=== PATIENT | female | born 1980 | race Caucasian/White ===

== ENCOUNTER 2019-11-20 13:37 | Outpatient (CLI) | payer BC, SELFPAY ==
--- NOTE | ~2019-11-20 | CT_ITS ---
EXAMINATION: CT sinus wo con DATE: 11/20/2019 13:59 INDICATION: Congestion. Chronic sinusitis. History of sinus surgery. TECHNIQUE: Computed tomography (CT) of the paranasal sinuses was performed without contrast. Iterativ e reconstruction technique was employed. Exam dose: 264.59 mGy-cm total exam DLP. COMPARISON: 11/01/2005 CT sinuses FINDINGS: There is mild leftward deviation of the nasal septum. There is mali bullosa and interlamellar cell of the left middle nasal turbinate. There is intralame llar cell of the right middle nasal turbinate. The left middle and both inferior nasal turbinates are moderately swollen. There is resection of the uncinate processes with bilateral nasal antral windows. There is minimal focal soft tissue opacification of left ethmoid air cells. The paranasal sinuses are otherwise normally developed and aerated. The mastoid air cells are normally developed and aerated bilaterally. Middle and inner ear apparatus appear normal bilaterally. IMPRESSION: Bilateral uncinate process resection and nasal antral windows Minimal focal soft tissue opacification of left ethmoid air cells Mild leftward deviation of nasal septum Mali bullosa and interlamellar cell of left middle nasal turbinate Interlamellar cell of right middle nasal turbinate Reviewed, dictated and finalized at [facility]. Reviewed, dictated and finalized at location [facility].
== END 2019-11-20 13:38 | disposition home or self-care (01) ==
LOC: ANHIMG 13:39
PROVIDERS: PCP Family Medicine; Visit Provider Otolaryngology
DX: J32.9 Chronic sinusitis, unspecified (principal); J34.2 Deviated nasal septum
CPT/HCPCS: 70486

== ENCOUNTER 2020-01-22 00:33 | Outpatient (CLI) | payer BC, SELFPAY ==
[2020-01-22 17:43] LABS: SARS-CoV-2 RNA PCR Negative
== END 2020-01-22 00:34 | disposition home or self-care (01) ==
LOC: ANHCOVIDDT 00:33
PROVIDERS: PCP Family Medicine; Visit Provider Internal Medicine Gastroenterology
DX: Z01.818 Encounter for other preprocedural examination (principal); Z11.59 Encounter for screening for other viral diseases
CPT/HCPCS: 87635; C9803; U0003

== ENCOUNTER 2020-01-24 01:10 | Day surgery (SDC) | payer BC, SELFPAY ==
[2020-01-20 12:31] VITALS: BMI 52.4
--- NOTE | 2020-01-24 08:15 | WPDANESEPPF ---
Anes - Initial Pre Proc Eval Procedure: Operation Date: 01/24/20 09:15 Proposed Procedures p Esophagogastroduodenoscopy - Osvaldo Olivas MD Date/Time: 01/24/20 08:15 Surgeon: Osvaldo Olivas MD Pre Op Diagnosis: GERD Patient Data Age: 39 Gender: F Height: 1.65 m Weight: 143 kg Allergies Allergy/AdvReac Type Severity Reaction Status Date / Time codeine Allergy Unknown Headache Verified 01/20/20 12:26 Home Medications Medication Instructions Recorded Confirmed Type citalopram 40 mg tablet 40 mg PO DAILY 09/18/19 01/20/20 History loratadine 10 mg tablet 10 mg PO DAILY #30 tablet 09/18/19 01/20/20 Rx nystatin 100,000 unit/gram topical 1 applic TOPICAL BID #30 gm 10/29/19 01/20/20 Rx powder arginine HCl (L-arginine) 1,000 mg 1,000 mg PO DAILY 11/18/19 01/20/20 History tablet atorvastatin 10 mg tablet 10 mg PO DAILY 11/18/19 01/20/20 History fluticasone propionate 50 2 spray NASAL DAILY 11/18/19 01/20/20 History mcg/actuation nasal spray,suspension magnesium chloride 64 mg 64 mg PO BID 11/18/19 01/20/20 History tablet,extended release metoprolol succinate 25 mg 25 mg PO DAILY 11/18/19 01/20/20 History tablet,extended release 24 hr omeprazole 40 mg capsule,delayed 40 mg PO DAILY 11/18/19 01/20/20 History release vitamin B complex 1 cap PO DAILY 11/18/19 01/20/20 History clindamycin phosphate 1 % topical 1 applic TOPICAL DAILY #60 ml 12/25/19 01/20/20 Rx solution aspirin 81 mg tablet,delayed 81 mg PO DAILY 01/09/20 01/20/20 History release albuterol sulfate 2 puff INHALATION Q4HWA PRN 01/20/20 01/20/20 History nystatin-triamcinolone 1 applic TOPICAL PRN PRN 01/20/20 01/20/20 History Patient hx anesthesia problems: none Family hx anesthesia problems: none PMFSH Past Medical History Medical History Chronic GERD Enlarged thoracic aorta Hepatic steatosis Morbid obesity with BMI of 50.0-59.9, adult Nausea MILY on CPAP Other intervertebral disc degeneration, lumbar region PCOS (polycystic ovarian syndrome) Surgical History Surgical History H/O lithotripsy History of partial hysterectomy Hx of cholecystectomy Hx of sinus surgery Family History Family History Father Hypertension Family history of chronic obstructive pulmonary disease Family history of diabetes mellitus in first degree relative Acute myocardial infarction Cerebrovascular accident Family history of coronary artery disease Diabetes mellitus Mother Hypertension Family history of diabetes mellitus in first degree relative Diabetes mellitus Grandparent Cerebrovascular accident Other Family history of malignant neoplasm Family history of malignant neoplasm of urinary bladder Social History Social History Smoking status: Former smoker Smoking end date: 08/21/11 Alcohol intake: never Anes - Eval Final PreProcedure Day of Procedure 01/24/20 08:15 Patient weight: super morbidly obese Heart: regular rate and rhythm Lungs: clear to auscultation and normal air movement Airway: Mallampati scale class II Neurological: alert and oriented Last oral intake: >/= 8 hours ASA classification: III Emergent: no Anesthetic plan: proceed Anesthesia type and monitoring: general GIVS Informed Consent: The patient's anesthetic plan and its attendant risks and benefits were discussed with the patient/family/POA. Questions were solicited and answers provided to the satisfaction of the patient/family/POA.
[2020-01-24 09:15] VITALS: BP 136/72; PULSE 65; RESP 16; TEMP 36.2; O2SAT 96; BMI 51.9
[2020-01-24] MEDS: LACTATED RINGERS 1,000 ML 150 ML IV CONT (09:27)
--- NOTE | 2020-01-24 09:55 | WPDHPUPDATE1 ---
History and Physical Update Update Date/Time: 01/24/20 09:55 History and Physical has been reviewed, including an updated exam of the patient. There are NO changes in the patient's condition. Risks, benefits, and alternatives have been discussed and questions answered. Patient agrees to proceed with procedure.
[2020-01-24 10:17] VITALS: BP 106/62; PULSE 71; RESP 21; O2SAT 98
[2020-01-24 10:27] VITALS: BP 108/63; PULSE 65; RESP 22; O2SAT 98
[2020-01-24 10:37] VITALS: BP 112/69; PULSE 63; RESP 21; O2SAT 98
== END 2020-01-24 10:51 | disposition home or self-care (01) ==
PROVIDERS: PCP Family Medicine; Visit Provider Internal Medicine Gastroenterology
PROC: 0DJ08ZZ Inspection of Upper Intestinal Tract, Via Natural or Artificial Opening Endoscopic (ICD-10-PCS; CPT 43235; principal; 2020-01-24 09:15)
DX: K21.9 Gastro-esophageal reflux disease without esophagitis (principal); K29.50 Unspecified chronic gastritis without bleeding; K76.0 Fatty (change of) liver, not elsewhere classified; G47.33 Obstructive sleep apnea (adult) (pediatric); E28.2 Polycystic ovarian syndrome; E66.01 Morbid (severe) obesity due to excess calories; Z68.43 Body mass index [BMI] 50.0-59.9, adult; Z79.82 Long term (current) use of aspirin; Z87.891 Personal history of nicotine dependence
CPT/HCPCS: 43239; 88305; J2001; J2704; J7120

== ENCOUNTER 2020-01-27 07:45 | Outpatient (CLI) | payer BC, SELFPAY ==
--- NOTE | ~2020-01-27 | NM_ITS ---
EXAM: NM gastric emptying study DATE: 01/28/2020 07:59 CDT INDICATION: Nausea TECHNIQUE: A gastric emptying study was performed using the methodology of Charly URIBE, et al. J Nucl Med 2007; 48:568-572. The patient was given a meal consisting of 2 scrambled eggs labeled with 1 mCi Tc-99m sulfur colloid, 2 slices of toast, two packages of jam, and approximately 120 mL of water. Si multaneous anterior and posterior 1-min images of the abdomen were obtained with the patient supine a t multiple time points over a total period of 4 hours. The geometric mean of anterior and posterior v iews was determined, and the percentage retention was calculated for each time point. COMPARISON: None. FINDINGS: Gastric retention of the radiotracer-labeled meal was 84%, 71%, and 28% at the 1-hour, 2-h our, and 4-hour time points, respectively. With this technique, apparent rapid gastric emptying is melendez ggested by <30% gastric retention at 1 hour. Delayed gastric emptying is defined by gastric retention of >90% at 1 hour, >60% retention at 2 hours, or >10% retention at 4 hours. IMPRESSION: 1. Delayed gastric emptying. 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
== END 2020-01-27 07:46 | disposition home or self-care (01) ==
LOC: ANHIMG 07:46
PROVIDERS: PCP Family Medicine; Visit Provider Internal Medicine Gastroenterology
DX: K21.9 Gastro-esophageal reflux disease without esophagitis (principal); R11.0 Nausea; K30 Functional dyspepsia
CPT/HCPCS: 78264; A9541

== ENCOUNTER 2020-03-11 09:43 | Outpatient (CLI) | payer BC, SELFPAY ==
--- NOTE | 2020-03-12 11:00 | NEURO_ITS ---
Patient Number: [id number] Impression: # Complains of pain and numbness of right upper extremity. # Evolving right Carpal Tunnel Syndrome. # Right ulnar neuropathy across the elbow. # Normal needle/EMG exam. # Clinical correlation recommended. Nerve Conduction Studies Anti Sensory Summary Table Stim Site NR Peak (ms) P-T Amp (?V) Site1 Site2 Delta-P (ms) Dist (cm) Roman (m/s) Left Median Anti Sensory (2-3nd Digit) Wrist 2.6 73.3 Wrist 2-3nd Digit 2.6 14.0 54 Wrist 2.7 83.3 Wrist 2-3nd Digit 2.6 14.0 54 Right Median Anti Sensory (2-3nd Digit) Wrist 3.4 85.7 Wrist 2-3nd Digit 3.4 14.0 41 Wrist 2.8 86.8 Wrist 2-3nd Digit 3.4 14.0 41 Left Radial Anti Sensory (Base 1st Digit) Wrist 1.9 7.7 Wrist Base 1st Digit 1.9 0.0 Right Radial Anti Sensory (Base 1st Digit) Wrist 2.1 14.2 Wrist Base 1st Digit 2.1 0.0 Left Ulnar Anti Sensory (5th Digit) Wrist 2.1 70.6 Wrist 5th Digit 2.1 14.0 67 Right Ulnar Anti Sensory (5th Digit) Wrist 2.0 87.4 Wrist 5th Digit 2.0 14.0 70 Motor Summary Table Stim Site NR Onset (ms) O-P Amp (mV) Site1 Site2 Delta-0 (ms) Dist (cm) Roman (m/s) Left Median Motor (Abd Poll Brev) Wrist 3.0 3.7 Elbow Wrist 4.0 26.0 65 Elbow 7.0 2.8 Right Median Motor (Abd Poll Brev) Wrist 3.8 1.5 Elbow Wrist 4.0 26.0 65 Elbow 7.8 0.6 Left Ulnar Motor (Abd Dig Minimi) Wrist 2.4 6.3 A Elbow Wrist 4.2 27.0 64 A Elbow 6.6 6.3 Right Ulnar Motor (Abd Dig Minimi) Wrist 2.7 5.3 A Elbow Wrist 5.1 25.0 49 A Elbow 7.8 2.9 B Elbow Wrist 4.0 20.0 50 B Elbow 6.7 2.8 F Wave Studies NR F-Lat (ms) L-R F-Lat (ms) Left Median (Mrkrs) (Abd Poll Brev) 26.13 0.82 Right Median (Mrkrs) (Abd Poll Brev) 26.95 0.82 Left Ulnar (Mrkrs) (Abd Dig Min) 27.42 1.07 Right Ulnar (Mrkrs) (Abd Dig Min) 26.35 1.07 EMG Side Muscle Nerve Root Ins Act Fibs Amp Dur Recrt Comment Right 1stDorInt Ulnar C8-T1 Nml Nml Nml Nml Nml Right Ext Indicis Radial (Post Int) C7-8 Nml Nml Nml Nml Nml Right Ext Digitorum Radial (Post Int) C7-8 Nml Nml Nml Nml Nml Right BrachioRad Radial C5-6 Nml Nml Nml Nml Nml Right PronatorTeres Median C6-7 Nml Nml Nml Nml Nml Right Abd Poll Brev Median C8-T1 Nml Nml Nml Nml Nml Left 1stDorInt Ulnar C8-T1 Nml Nml Nml Nml Nml Left Ext Indicis Radial (Post Int) C7-8 Nml Nml Nml Nml Nml Left Ext Digitorum Radial (Post Int) C7-8 Nml Nml Nml Nml Nml Left BrachioRad Radial C5-6 Nml Nml Nml Nml Nml Left PronatorTeres Median C6-7 Nml Nml Nml Nml Nml Left Abd Poll Brev Median C8-T1 Nml Nml Nml Nml Nml MTDD
== END 2020-03-11 09:44 | disposition home or self-care (01) ==
PROVIDERS: PCP Family Medicine; Visit Provider Nurse Practitioner Family
DX: M25.531 Pain in right wrist (principal); G56.01 Carpal tunnel syndrome, right upper limb; G56.21 Lesion of ulnar nerve, right upper limb
CPT/HCPCS: 95886; 95911

== ENCOUNTER 2020-04-01 15:44 | Outpatient (CLI) | payer BC, SELFPAY ==
[2020-04-01 16:21] LABS: Hematocrit 34.6 % (37.0-47.0); Hemoglobin 11.3 g/dL (12.0-15.0); Mean Corpuscular HGB Conc 32.7 g/dl (32-36); Mean Corpuscular Hemoglobin 28.3 pg (26-34); Mean Corpuscular Volume 86.5 fl (80-100); Mean Platelet Volume 10.3 fl (7.4-10.4); Platelet Count Result 326 k/mm3 (150-375); Red Cell Distribution Width 13.7 % (11.5-14.5); White Blood Count 9.3 K/mm3 (4.5-10.0)
[2020-04-01 16:34] LABS: Anion Gap 7 mmol/L (8-16); Blood Urea Nitrogen 11 mg/dL (7-17); Calcium 9.3 mg/dL (8.4-10.2); Carbon Dioxide 27 mmol/L (22-30); Chloride 101 mmol/L (98-107); Estimated Glomerular Filt Rate > 60; Glucose 87 mg/dL (65-105); Potassium 3.8 mmol/L (3.4-5.0); Sodium 135 mmol/L (137-145)
== END 2020-04-01 15:45 | disposition home or self-care (01) ==
PROVIDERS: PCP Family Medicine; Visit Provider Nurse Practitioner Family
DX: R10.9 Unspecified abdominal pain (principal)
CPT/HCPCS: 36415; 80048; 85027

== ENCOUNTER 2020-04-07 16:07 | Outpatient (CLI) | payer BC, SELFPAY ==
--- NOTE | ~2020-04-07 | CT_ITS ---
EXAMINATION: CT abdomen pelvis wo con DATE: 04/07/2020 16:27 INDICATION: Left flank pain TECHNIQUE: Computed tomography (CT) of the abdomen and pelvis was performed without intravenous contr ast. The dose-length product (DLP) was 1561.80 mGy-cm. Automated exposure control and iterative recon struction technique were employed. COMPARISON: 12/14/2018 FINDINGS: The lung bases are clear. The heart size is normal. The gallbladder is surgically absent. T he liver, spleen, pancreas, and adrenal glands are normal. There is a 3 mm stone at the left ureterop elvic junction which causes mild left hydronephrosis. No stones are present in the kidneys, the right ureter, or the bladder. No pathologically enlarged abdominal or pelvic lymph nodes are identified. T here is no free intraperitoneal gas or evidence of bowel obstruction. The appendix is normal. There i s mild lumbar spondylosis. There is a small fat-containing umbilical hernia. A chronic 3 cm area of f luid attenuation in the region of the left adnexa likely reflects a peritoneal inclusion cyst. IMPRESSION: 1. 3 mm stone at the left ureteropelvic junction causing mild left hydronephrosis. 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 IMPRESSION: 1. 3 mm stone at the left ureteropelvic junction causing mild left hydronephros is.
--- NOTE | ~2020-04-07 | XR_ITS ---
EXAMINATION: XR abdomen/kub 1V INDICATION: Left flank pain TECHNIQUE: Supine views of the abdomen were obtained on 2 radiographs. COMPARISON: 08/20/[address] from today FINDINGS: The known left ureteropelvic junction stone is not demonstrated. The bowel gas pattern is n ormal. Cholecystectomy clips are present in the right upper quadrant. A surgical clips are present in the right pelvis. IMPRESSION: 1. Known left ureteropelvic junction stone not demonstrated. 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
== END 2020-04-07 16:08 | disposition home or self-care (01) ==
PROVIDERS: PCP Family Medicine; Visit Provider Nurse Practitioner Adult Health
DX: R10.9 Unspecified abdominal pain (principal); N20.1 Calculus of ureter
CPT/HCPCS: 74018; 74176

== ENCOUNTER 2020-04-09 01:37 | Day surgery (SDC) | payer BC, SELFPAY ==
[2020-04-08 17:01] VITALS: BMI 52.2
[2020-04-09] VITALS (15 sets, daily range): BP systolic 112–167; BP diastolic 33–90; PULSE 62–92; RESP 10–21; TEMP 36.1–36.8; O2SAT 92–100; BMI 52.8
--- NOTE | ~2020-04-09 | XR_ITS ---
EXAMINATION: XR fluoroscopy no charge DATE: 04/09/2020 12:55 INDICATION: Left ureteral stone. TECHNIQUE: 2 intraoperative fluoroscopic views of the abdomen and pelvis were obtained. I was not pre sent. Fluoroscopy exposure time was 8 seconds. COMPARISON: CT abdomen and pelvis 04/07/2020 FINDINGS: Images demonstrate a guidewire in the left ureter. Surgical clips in the right upper quadra nt are likely from cholecystectomy. A tubal ligation clip overlies right pelvis. IMPRESSION: 1. Guidewire in the left ureter. 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
--- NOTE | 2020-04-09 06:59 | WPDHPUPDATE1 ---
History and Physical Update Update Date/Time: 04/09/20 06:59 History and Physical has been reviewed, including an updated exam of the patient. There are NO changes in the patient's condition. Risks, benefits, and alternatives have been discussed and questions answered. Patient agrees to proceed with procedure.
[2020-04-09] MEDS: LACTATED RINGERS 1,000 ML 30 ML IV CONT ×2 (11:45→13:41)
--- NOTE | 2020-04-09 12:06 | P.PNAN_ITS ---
Anes - Initial Pre Proc Eval Procedure: Operation Date: 04/09/20 14:00 Proposed Procedures p Cystoscopy, Left Ureteroscopy, Left Retrograde Pyelogram, Left Stone Extraction, Possible Left Stent Placement - Michael Fox MD s Possible Holmium Laser Procedure - Michael Fox MD Date/Time: 04/09/20 12:06 Surgeon: Michael Fox MD Pre Op Diagnosis: Left UVJ Stone Patient Data Age: 39 Gender: F Height: 1.65 m Weight: 142 kg Last Vital Signs Temp 36.8 C 04/09/20 11:41 Pulse 69 04/09/20 11:41 Resp 20 04/09/20 11:41 BP 135/76 04/09/20 11:41 Pulse Ox 97 04/09/20 11:41 Allergies Allergy/AdvReac Type Severity Reaction Status Date / Time codeine Allergy Unknown Headache Verified 04/09/20 11:39 Home Medications Medication Instructions Recorded Confirmed Type citalopram 40 mg tablet 40 mg PO DAILY 09/18/19 04/09/20 History arginine HCl (L-arginine) 1,000 mg 1,000 mg PO DAILY 11/18/19 04/09/20 History tablet atorvastatin 10 mg tablet 10 mg PO DAILY 11/18/19 04/09/20 History metoprolol succinate 25 mg 25 mg PO DAILY 11/18/19 04/09/20 History tablet,extended release 24 hr omeprazole 40 mg capsule,delayed 40 mg PO DAILY 11/18/19 04/09/20 History release vitamin B complex 1 cap PO DAILY 11/18/19 04/09/20 History aspirin 81 mg tablet,delayed 81 mg PO DAILY 01/09/20 04/09/20 History release albuterol sulfate 2 puff INHALATION Q4HWA PRN 01/20/20 04/09/20 History loratadine 10 mg tablet 10 mg PO DAILY #30 tablet 02/11/20 04/09/20 Rx clindamycin phosphate 1 % topical 1 applic TOPICAL DAILY #60 ml 03/30/20 04/09/20 Rx solution fluticasone propionate 50 2 spray NASAL DAILY #47.4 ml 04/02/20 04/09/20 Rx mcg/actuation nasal spray,suspension triamcinolone acetonide 1 applic TOPICAL PRN PRN 04/08/20 04/09/20 History Patient hx anesthesia problems: none Family hx anesthesia problems: none [facility] Social History Social History Years smoked: 13 Smoking status: Former smoker Smoking end date: 08/21/11 Alcohol intake: never Living arrangements: with family Jaden Edward Final PreProcedure Day of Procedure 04/09/20 12:06 Patient weight: morbidly obese Heart: regular rate and rhythm Lungs: clear to auscultation and normal air movement Airway: Mallampati scale class II Neurological: alert and oriented Last oral intake: >/= 8 hours ASA classification: III Emergent: no Anesthetic plan: proceed Anesthesia type and monitoring: general LMA and ETT Informed Consent: The patient's anesthetic plan and its attendant risks and benefits were discussed with the patient/family/POA. Questions were solicited and answers provided to the satisfaction of the patient/family/POA.
[2020-04-09] MEDS: ceFAZolin SODIUM 1 GM VIAL IV PUSH (12:18)
[2020-04-09] MEDS: ceFAZolin 2 GM/D5W 50 ML 2 GM/50 ML BAG IVPB (12:18)
[2020-04-09] MEDS: LIDOCAINE HCL 2% GEL UROJET 10 ML PKG MUCOUS MEM (12:31)
--- NOTE | 2020-04-09 12:54 | PM.PROC ---
Procedure Note - Detailed Date of procedure: 04/09/20 Pre-op diagnosis: Left UVJ Stone Post-op diagnosis: same Procedure performed: Cystoscopy, left ureteroscopy with stone extraction Description of procedure: The patient was brought to the operative suite where she is prepped and draped in a routine sterile fashion while in the dorsal lithotomy position after the uneventful induction of a general LMA anesthetic. A 19F rigid cystoscope was placed in the bladder. The patient had no evidence of urethral stricture or bladder neck contracture. The bladder mucosa was endoscopically normal without hyperemia or neoplasm. There was a single, orthotopic ureteral orifice bilaterally. A 0.035 glidewire was advanced into the left renal pelvis under fluoroscopy. The distal ureter was dilated with an 8F/10F ureteral dilator. Ureteroscopy was undertaken with a short, tapered, semi-rigid ureteroscope and then a 7.5F flexible ureteroscope. The proximal ureteral stone was extracted with ease using a 1.9F 0-tip disposable stone basket. Due to the ease of this manipulation I opted not to place a ureteral stent. The patient's bladder was emptied and was taken to the recovery room having tolerated this procedure well. Anesthesia: GLMA Surgeon: Michael Fox MD Drains: No Packing: No Pathology: none sent Complications: No immediate complications Condition: stable Disposition: PACU
[2020-04-09] MEDS: SCOPOLAMINE 1.5 MG PATCH TRANSDERM (13:03)
[2020-04-09] MEDS: KETOROLAC 30 MG/ML VIAL (*BKC) IV PUSH (13:04)
[2020-04-09] MEDS: ONDANSETRON INJ 4 MG/2 ML VIAL IV PUSH ×2 (13:29→21:25)
--- NOTE | 2020-04-09 15:42 | SUR.PHASEII ---
1535: Called Dr. Fox and explained that patient was having severe Lt lower quad pain. He talked with patient and decided to admit. RN called [facility] for bed and updated on admission.
[2020-04-09] MEDS: diphenhydrAMINE HCl INJ 50 MG/ML VIAL 12.5 MG IV PUSH (16:17)
[2020-04-09] MEDS: MORPHINE SULFATE 2 MG/ML INJ IV PUSH ×2 (16:59→21:25)
[2020-04-09] MEDS: LACTATED RINGERS 1,000 ML 100 ML IV CONT (17:03)
[2020-04-10] MEDS: LACTATED RINGERS 1,000 ML 100 ML IV CONT ×2 (03:09→12:46)
[2020-04-10 05:18] VITALS: BP 106/57; PULSE 61; RESP 16; TEMP 36.4; O2SAT 97
--- NOTE | 2020-04-10 07:09 | PM.IMHP ---
H&P: HPI History of Present Illness Date/Time: 04/10/20 07:09 Chief complaint: Left UVJ Stone Narrative: Josefa Costello is a 39 year old female with a history of recurring urolithiasis. Yesterday she underwent a simple endoscopic extraction of a 3 mm left ureteral calculus a. I opted not place a stent and postoperatively she had considerable flank pain. She was admitted overnight for hydration and analgesics. Review of Systems Cardiovascular: Cardiovascular: Denies chest pain, Denies lightheadedness, Denies palpitations and Denies dyspnea Respiratory: Respiratory: Denies dyspnea Gastrointestinal: Gastrointestinal: Denies diarrhea, Denies nausea and Denies vomiting Genitourinary: Genitourinary: Denies hematuria and Denies dysuria Endocrine: Endocrine: Denies palpitations PMFSH Past Medical History Medical History Chronic GERD Enlarged thoracic aorta Hepatic steatosis Morbid obesity with BMI of 50.0-59.9, adult Nausea MILY on CPAP Other intervertebral disc degeneration, lumbar region PCOS (polycystic ovarian syndrome) Surgical History Surgical History H/O lithotripsy History of partial hysterectomy Hx of cholecystectomy Hx of sinus surgery Family History Family History Father Hypertension Family history of chronic obstructive pulmonary disease Family history of diabetes mellitus in first degree relative Acute myocardial infarction Cerebrovascular accident Family history of coronary artery disease Diabetes mellitus Mother Hypertension Family history of diabetes mellitus in first degree relative Diabetes mellitus Grandparent Cerebrovascular accident Other Family history of malignant neoplasm Family history of malignant neoplasm of urinary bladder Social History Social History Years smoked: 13 Smoking status: Former smoker Smoking end date: 08/21/11 Alcohol intake: never Substance use: never Living arrangements: with family Gender identity (if verbalized by the patient): Female Spiritual care concerns: No Meds Home Medications and Allergies Home Medications Medication Instructions Recorded Confirmed Type citalopram 40 mg tablet 40 mg PO DAILY 09/18/19 04/09/20 History arginine HCl (L-arginine) 1,000 mg 1,000 mg PO DAILY 11/18/19 04/09/20 History tablet atorvastatin 10 mg tablet 10 mg PO DAILY 11/18/19 04/09/20 History metoprolol succinate 25 mg 25 mg PO DAILY 11/18/19 04/09/20 History tablet,extended release 24 hr omeprazole 40 mg capsule,delayed 40 mg PO DAILY 11/18/19 04/09/20 History release vitamin B complex 1 cap PO DAILY 11/18/19 04/09/20 History aspirin 81 mg tablet,delayed 81 mg PO DAILY 01/09/20 04/09/20 History release albuterol sulfate 2 puff INHALATION Q4HWA PRN 01/20/20 04/09/20 History loratadine 10 mg tablet 10 mg PO DAILY #30 tablet 02/11/20 04/09/20 Rx clindamycin phosphate 1 % topical 1 applic TOPICAL DAILY #60 ml 03/30/20 04/09/20 Rx solution fluticasone propionate 50 2 spray NASAL DAILY #47.4 ml 04/02/20 04/09/20 Rx mcg/actuation nasal spray,suspension triamcinolone acetonide 1 applic TOPICAL PRN PRN 04/08/20 04/09/20 History cephalexin 500 mg PO Q8H #9 cap 04/09/20 Rx hydrocodone-acetaminophen 1 - 2 tablet PO Q6H PRN #20 tablet 04/09/20 Rx Allergies Allergy/AdvReac Type Severity Reaction Status Date / Time codeine Allergy Unknown Headache Verified 04/09/20 11:39 Vital Signs Vital Signs - 24 hr 04/09/20 11:41 04/09/20 12:54 04/09/20 13:10 Temperature 98.2 F 97.6 F Pulse Rate 69 90 69 Respiratory Rate 20 20 14 Blood Pressure 135/76 136/67 134/78 Pulse Oximetry 97 100 100 04/09/20 13:25 04/09/20 13:41 04/09/20 13:55 Temperature Pulse Rate 70 72 78 Respiratory Rate 20 16 1
--- NOTE | 2020-04-10 07:41 | WPDANESPN ---
Anes - Prog Note Post-Op Date/Time: 04/10/20 07:41 Cardiovascular status: normal Respiratory status: normal Airway patency: baseline Mental status: baseline Post-Op hydration status: normal Vital Signs: Last Vital Signs Temp 36.4 C 04/10/20 05:18 Pulse 61 04/10/20 05:18 Resp 16 04/10/20 05:18 BP 106/57 L 04/10/20 05:18 Pulse Ox 97 04/10/20 05:18 I/O: Intake & Output 04/09/20 04/09/20 04/10/20 15:59 23:59 07:59 Intake Total 2856 573 5527 Output Total 1100 Balance 1600 790 200 Post-procedural complaints: none Patient Feedback: Patient satisfied with anesthetic care.
[2020-04-10] MEDS: PHENAZOPYRIDINE HCL 100 MG TABLET 200 MG PO (10:01)
[2020-04-10] MEDS: ACETAMINOPHEN 325 MG TABLET 650 MG PO (14:20)
[2020-04-10] MEDS: DOCUSATE SODIUM 100 MG CAPSULE PO (14:20)
== END 2020-04-10 14:47 | disposition home or self-care (01) ==
LOC: ANHSURGERY 12:58 → ANH2MED 16:36
PROVIDERS: PCP Family Medicine; Visit Provider Urology
PROC: (CPT 52352; principal; 2020-04-09 14:00)
DX: N20.1 Calculus of ureter (principal)
CPT/HCPCS: 52352; A9270; C1769; J0131; J0330; J0690; J1100; J1170; J1200; J1885; J2250; J2270; J2405; J2704; J3010; J7120; Q9966

== ENCOUNTER → 2020-05-19 13:48 | Outpatient (CLI) | payer BC, SELFPAY ==
--- NOTE | ~2020-05-19 | US_ITS ---
EXAMINATION: US renal BI DATE: 05/19/2020 14:40 INDICATION: Left flank pain TECHNIQUE: Multiple ultrasound grayscale images of the kidneys were obtained. COMPARISON: None. FINDINGS: The right kidney measures 11.4 x 6.1 x 6.1 cm. The left kidney measures 11.5 x 5.1 x 5.2 cm. The kidn eys demonstrate normal echogenicity. There is no hydronephrosis in either kidney. No stones identifi ed. The bladder is normal. IMPRESSION: 1. Normal kidneys without hydronephrosis. 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
== END ==
PROVIDERS: PCP Family Medicine; Visit Provider Nurse Practitioner Adult Health
DX: R10.9 Unspecified abdominal pain (principal)
CPT/HCPCS: 76775

== ENCOUNTER 2020-06-22 01:08 | Outpatient (CLI) | payer BC, SELFPAY ==
[2020-06-22 19:58] LABS: SARS-CoV-2 RNA PCR Positive
== END 2020-06-22 01:09 | disposition home or self-care (01) ==
LOC: ANHCOVIDDT 01:08
PROVIDERS: PCP Family Medicine; Visit Provider Internal Medicine Gastroenterology
DX: Z01.812 Encounter for preprocedural laboratory examination (principal); U07.1 COVID-19
CPT/HCPCS: 87635; C9803; U0003

== ENCOUNTER 2020-08-04 02:16 | Outpatient (CLI) | payer BC, SELFPAY ==
[2020-08-04 22:42] LABS: SARS-CoV-2 RNA PCR Negative
== END 2020-08-04 02:17 | disposition home or self-care (01) ==
LOC: ANHCOVIDDT 02:17
PROVIDERS: PCP Family Medicine; Visit Provider Internal Medicine Gastroenterology
DX: Z01.812 Encounter for preprocedural laboratory examination (principal); Z20.828 Contact with and (suspected) exposure to other viral communicable diseases
CPT/HCPCS: 87635; C9803; U0003

== ENCOUNTER 2020-08-07 00:01 | Day surgery (SDC) | payer BC, SELFPAY ==
[2020-06-17 13:49] VITALS: BMI 52.5
--- NOTE | 2020-06-23 08:39 | SUR.PREOP ---
Spoke with patient regarding positive Covid test results. Instructed that Public health will be calling to follow up with her. Also instructed to self isolate and to contact her primary doctor or come to the ER if symptoms occur. Verbalized understanding and that her colonoscopy is canceled. Spoke with Rebeca in Dr [place] office of the test results and the cancelation of the procedure.
[2020-08-04 09:01] VITALS: BMI 52.5
[2020-08-07 07:18] VITALS: BP 134/73; PULSE 87; RESP 18; TEMP 36.1; O2SAT 99
[2020-08-07] MEDS: LACTATED RINGERS 1,000 ML 150 ML IV CONT (07:45)
--- NOTE | 2020-08-07 08:14 | WPDANESEPPF ---
Anes - Initial Pre Proc Eval Procedure: Operation Date: 08/07/20 08:30 Proposed Procedures p Colonoscopy - Osvaldo Olivas MD Date/Time: 08/07/20 08:14 Surgeon: Osvaldo Olivas MD Pre Op Diagnosis: LLQ Pain Patient Data Age: 39 Gender: F Height: 5 ft 5 in Weight: 138.9 kg Last Vital Signs Temp 36.1 C L 08/07/20 07:18 Pulse 87 08/07/20 07:18 Resp 18 08/07/20 07:18 BP 134/73 08/07/20 07:18 Pulse Ox 99 08/07/20 07:18 Allergies Allergy/AdvReac Type Severity Reaction Status Date / Time codeine Allergy Mild Headache Verified 08/07/20 07:16 Home Medications Medication Instructions Recorded Confirmed Type citalopram 40 mg tablet 40 mg PO DAILY 09/18/19 08/07/20 History metoprolol succinate 25 mg 25 mg PO DAILY 11/18/19 08/04/20 History tablet,extended release 24 hr aspirin 81 mg tablet,delayed 81 mg PO DAILY 01/09/20 08/04/20 History release clindamycin phosphate 1 % topical 1 applic TOPICAL DAILY #60 ml 06/01/20 08/04/20 Rx solution omeprazole 40 mg capsule,delayed 40 mg PO DAILY #90 cap 06/18/20 08/04/20 Rx release fluticasone propionate 50 See Rx Instructions .ROUTE 06/28/20 08/04/20 Rx mcg/actuation nasal .COMPLEX #48 ml spray,suspension cholecalciferol (vitamin D3) 20 mcg PO DAILY 07/29/20 08/04/20 History atorvastatin 10 mg PO DAILY 08/04/20 08/04/20 History loratadine 10 mg tablet See Rx Instructions .ROUTE 08/06/20 Rx .COMPLEX #90 tablet Patient hx anesthesia problems: none Family hx anesthesia problems: none PMFSH Past Medical History Medical History Chronic GERD Enlarged thoracic aorta Gastroparesis Hepatic steatosis LLQ pain Morbid obesity with BMI of 50.0-59.9, adult Nausea MILY on CPAP Other intervertebral disc degeneration, lumbar region PCOS (polycystic ovarian syndrome) Surgical History Surgical History H/O lithotripsy History of section 2006, 2007, 2014 History of partial hysterectomy Hx of cholecystectomy Hx of sinus surgery Family History Family History Father Hypertension Family history of chronic obstructive pulmonary disease Family history of diabetes mellitus in first degree relative Acute myocardial infarction Cerebrovascular accident Family history of coronary artery disease Diabetes mellitus Mother Hypertension Family history of diabetes mellitus in first degree relative Diabetes mellitus Grandparent Cerebrovascular accident Other Family history of malignant neoplasm Family history of malignant neoplasm of urinary bladder Social History Social History Years smoked: 13 Smoking status: Former smoker Tobacco type: cigarettes Smoking end date: 08/21/11 Alcohol intake: never Substance use: never Substance use type: does not use Living arrangements: with family Gender identity (if verbalized by the patient): Female Spiritual care concerns: No Anes - Eval Final PreProcedure Day of Procedure 08/07/20 08:14 Patient weight: morbidly obese Heart: regular rate and rhythm Lungs: clear to auscultation Airway: Mallampati scale class II Neurological: alert and oriented Last oral intake: >/= 8 hours ASA classification: III Emergent: no Anesthetic plan: proceed Anesthesia type and monitoring: general GIVS and standard monitoring Informed Consent: The patient's anesthetic plan and its attendant risks and benefits were discussed with the patient/family/POA. Questions were solicited and answers provided to the satisfaction of the patient/family/POA.
--- NOTE | 2020-08-07 08:30 | PM.HPGS ---
History of Present Illness History of Present Illness Consent: Risks, benefits, and alternatives have been discussed and questions answered. Patient agrees to proceed with procedure. Chief complaint: LLQ Pain Narrative: Josefa Costello is a 39 year old female intermittent llq pain with negative work up thus far, never had colonoscopy Review of Systems Constitutional: Constitutional: Denies headache(s) and Denies weakness Eyes: Eyes: Denies blurry vision ENT: Reports Normal hearing present, Denies headache(s) and Denies neck pain Cardiovascular: Cardiovascular: Denies chest pain and Denies dyspnea Respiratory: Respiratory: Denies dyspnea Gastrointestinal: Gastrointestinal: Reports no additional gastrointestinal complaints Genitourinary: Genitourinary: Denies dysuria Musculoskeletal: Musculoskeletal: Denies neck pain Integumentary/Breasts: Skin/Breast: Denies dry skin Neurologic: Reports Normal hearing present, Denies headache(s) and Denies weakness Psychiatric: Psychiatric: Denies anxiety Endocrine: Endocrine: Denies change in body appearance Hematologic/Lymphatic: Hematologic/Lymphatic: Denies easy bleeding Allergic/Immunologic: Allergic/Immunologic: Denies urticaria PMFSH Past Medical History Medical History Chronic GERD Enlarged thoracic aorta Gastroparesis Hepatic steatosis LLQ pain Morbid obesity with BMI of 50.0-59.9, adult Nausea MILY on CPAP Other intervertebral disc degeneration, lumbar region PCOS (polycystic ovarian syndrome) Surgical History Surgical History H/O lithotripsy History of section 2006, 2007, 2014 History of partial hysterectomy Hx of cholecystectomy Hx of sinus surgery Family History Family History Father Hypertension Family history of chronic obstructive pulmonary disease Family history of diabetes mellitus in first degree relative Acute myocardial infarction Cerebrovascular accident Family history of coronary artery disease Diabetes mellitus Mother Hypertension Family history of diabetes mellitus in first degree relative Diabetes mellitus Grandparent Cerebrovascular accident Other Family history of malignant neoplasm Family history of malignant neoplasm of urinary bladder Social History Social History Years smoked: 13 Smoking status: Former smoker Tobacco type: cigarettes Smoking end date: 08/21/11 Alcohol intake: never Substance use: never Substance use type: does not use Living arrangements: with family Gender identity (if verbalized by the patient): Female Spiritual care concerns: No Meds Home Medications and Allergies Home Medications Medication Instructions Recorded Confirmed Type citalopram 40 mg tablet 40 mg PO DAILY 09/18/19 08/07/20 History metoprolol succinate 25 mg 25 mg PO DAILY 11/18/19 08/04/20 History tablet,extended release 24 hr aspirin 81 mg tablet,delayed 81 mg PO DAILY 01/09/20 08/04/20 History release clindamycin phosphate 1 % topical 1 applic TOPICAL DAILY #60 ml 06/01/20 08/04/20 Rx solution omeprazole 40 mg capsule,delayed 40 mg PO DAILY #90 cap 06/18/20 08/04/20 Rx release fluticasone propionate 50 See Rx Instructions .ROUTE 06/28/20 08/04/20 Rx mcg/actuation nasal .COMPLEX #48 ml spray,suspension cholecalciferol (vitamin D3) 20 mcg PO DAILY 07/29/20 08/04/20 History atorvastatin 10 mg PO DAILY 08/04/20 08/04/20 History loratadine 10 mg tablet See Rx Instructions .ROUTE 08/06/20 Rx .COMPLEX #90 tablet Allergies Allergy/AdvReac Type Severity Reaction Status Date / Time codeine Allergy Mild Headache Verified 08/07/20 07:16 Vital Signs Vital Signs - 24 hr 08/07/20 07:18 Temperature 96.9 F L Pulse Rate 87 Respiratory Rate 18 Blood
[2020-08-07 08:52] VITALS: BP 91/46; PULSE 68; RESP 23; O2SAT 96
== END 2020-08-07 09:26 | disposition home or self-care (01) ==
PROVIDERS: PCP Family Medicine; Visit Provider Internal Medicine Gastroenterology
PROC: 0DJD8ZZ Inspection of Lower Intestinal Tract, Via Natural or Artificial Opening Endoscopic (ICD-10-PCS; CPT 45378; principal; 2020-08-07 08:30)
DX: R10.32 Left lower quadrant pain (principal); D12.3 Benign neoplasm of transverse colon; K21.9 Gastro-esophageal reflux disease without esophagitis; I77.810 Thoracic aortic ectasia; K31.84 Gastroparesis; K76.0 Fatty (change of) liver, not elsewhere classified; G47.33 Obstructive sleep apnea (adult) (pediatric); M51.36 Other intervertebral disc degeneration, lumbar region; E28.2 Polycystic ovarian syndrome; Z79.82 Long term (current) use of aspirin; E66.01 Morbid (severe) obesity due to excess calories; Z68.43 Body mass index [BMI] 50.0-59.9, adult; Z87.891 Personal history of nicotine dependence
CPT/HCPCS: 45380; 88305; J2704; J7120

== ENCOUNTER 2020-09-03 15:52 | Outpatient (CLI) | payer BC, SELFPAY ==
--- NOTE | ~2020-09-03 | XR_ITS ---
EXAMINATION: XR chest 2V EXAM DATE: 09/03/2020 16:29 INDICATION: Mid chest pain. TECHNIQUE: Frontal and lateral projections of the chest obtained and reviewed. Comparison is made to prior examination from 10/22/2018. FINDINGS: The lungs are clear. There are no pleural effusions. The cardiomediastinal silhouette is within normal limits. There is no pneumothorax suspected. The bones and soft tissues are unremarkab le. There are cholecystectomy clips. IMPRESSION: No acute cardiopulmonary findings. Reviewed, dictated and finalized at location B. 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
--- NOTE | 2020-09-03 16:02 | ECG_ITS ---
Measurements Intervals [place] Rate: 59 P: 23 IN: 162 QRS: 1 QRSD: 100 T: 29 QT: 434 QTc: 432 Interpretive Statements SINUS BRADYCARDIA VENTRICULAR PREMATURE COMPLEX BORDERLINE ECG Electronically Signed On 09-03-2020 16:21:29 PERSONNEL WORKER by Jovanny Chambers D.O.
== END 2020-09-03 15:53 | disposition home or self-care (01) ==
LOC: ANHIMG 15:56
PROVIDERS: PCP Family Medicine; Visit Provider Nurse Practitioner Family
DX: R07.89 Other chest pain (principal); R94.31 Abnormal electrocardiogram [ECG] [EKG]
CPT/HCPCS: 71046; 93005

== ENCOUNTER 2020-10-08 17:45 | Outpatient (CLI) | payer BC, SELFPAY ==
--- NOTE | ~2020-10-08 | CT_ITS ---
EXAMINATION: CT abdomen pelvis wo con EXAM DATE: 10/08/2020 18:18 INDICATION: Nephrolithiasis. Clinical concern for hernia. TECHNIQUE: Spiral CT of the abdomen and pelvis was performed without contrast. Axial, coronal and sag ittal images were reviewed. The dose-length product (DLP) for this examination was 1545.58 mGy-cm. The exposure was tailored according to patient size (auto mA exposure control), and iterative reconst ruction (ASIR) was used as additional dose reduction technique. Comparison is made to prior examinati on from 04/07/2020. FINDINGS: No abdominal wall hernia identified. There is punctate left inferior calyceal stone. Previo usly seen UPJ stone has passed. No hydronephrosis. The uterus is not identified and has likely been surgically resected. The bladder is unremarkable. The liver, spleen, adrenal glands and pancreas ar e unremarkable. There are cholecystectomy clips. There is no retroperitoneal or pelvic lymphadenopa thy. The appendix is normal. The stomach and small bowel are unremarkable. There is expected amount of c olonic stool. No free intraperitoneal gas. The heart is normal in size. There are no pericardial or pleural effusions. The lung bases are unremarkable. There are no osteoblastic or osteolytic les ions identified. IMPRESSION: Punctate left nephrolithiasis. No hernia. 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
== END 2020-10-08 17:46 | disposition home or self-care (01) ==
PROVIDERS: PCP Family Medicine; Visit Provider Surgery Plastic and Reconstructive Surgery
DX: M79.3 Panniculitis, unspecified (principal); N20.0 Calculus of kidney
CPT/HCPCS: 74176

== ENCOUNTER 2020-12-02 09:15 | Outpatient (CLI) | payer BC, SELFPAY ==
--- NOTE | 2020-12-02 10:30 | NEURO_ITS ---
Impression: # Complains of discomfort in feet. At times right foot turns in while walking. # Normal nerve conduction study. # No evidence of tarsal tunnel syndrome. # Normal needle/EMG exam. # Clinical correlation recommended. Nerve Conduction Studies Anti Sensory Summary Table Stim Site NR Peak (ms) P-T Amp (?V) Site1 Site2 Delta-P (ms) Dist (cm) Roman (m/s) Left Sup Fibular Anti Sensory (Ant Lat Mall) 14 cm 3.3 4.8 14 cm Ant Lat Mall 3.3 16.0 48 Right Sup Fibular Anti Sensory (Ant Lat Mall) 14 cm 3.1 7.9 14 cm Ant Lat Mall 3.1 16.0 52 Left Sural Anti Sensory (Lat Mall) Calf 3.3 6.3 Calf Lat Mall 3.3 16.0 48 Right Sural Anti Sensory (Lat Mall) Calf 3.0 12.9 Calf Lat Mall 3.0 16.0 53 Motor Summary Table Stim Site NR Onset (ms) O-P Amp (mV) Site1 Site2 Delta-0 (ms) Dist (cm) Roman (m/s) Left Lateral Plantar Motor (ADM) Med Mall 3.8 4.5 Right Lateral Plantar Motor (ADM) Med Mall 3.5 1.9 Left Peroneal Motor (Vastus Med) Ankle 3.6 2.0 Popit Ankle 7.5 37.0 49 Popit 11.1 1.4 Right Peroneal Motor (Vastus Med) Ankle 3.5 2.1 Popit Ankle 7.7 38.0 49 Popit 11.2 2.0 Left Tibial Motor (Abd Moncada Brev) Ankle 3.8 2.5 Knee Ankle 7.2 42.0 58 Knee 11.0 2.5 Right Tibial Motor (Abd Moncada Brev) Ankle 3.6 2.1 Knee Ankle 7.8 41.0 53 Knee 11.4 1.1 F Wave Studies NR F-Lat (ms) L-R F-Lat (ms) Left Peroneal (Mrkrs) (EDB) 46.28 0.55 Right Peroneal (Mrkrs) (EDB) 46.83 0.55 Left Tibial (Mrkrs) (Abd Hallucis) 46.84 0.70 Right Tibial (Mrkrs) (Abd Hallucis) 47.54 0.70 EMG Side Muscle Nerve Root Ins Act Fibs Amp Dur Recrt Comment Right AntTibialis Dp Br Fibular L4-5 Nml Nml Nml Nml Nml Right Gastroc Tibial S1-2 Nml Nml Nml Nml Nml Right Fibularis Long Sup Br Fibular L5-S1 Nml Nml Nml Nml Nml Right Flex Dig Long Tibial L5-S2 Nml Nml Nml Nml Nml Right Ext Dig Brev Dp Br Fibular L5, S1 Nml Nml Nml Nml Nml Left AntTibialis Dp Br Fibular L4-5 Nml Nml Nml Nml Nml Left Gastroc Tibial S1-2 Nml Nml Nml Nml Nml Left Fibularis Long Sup Br Fibular L5-S1 Nml Nml Nml Nml Nml Left Flex Dig Long Tibial L5-S2 Nml Nml Nml Nml Nml Left Ext Dig Brev Dp Br Fibular L5, S1 Nml Nml Nml Nml Nml Left QuadratusFem QuadFemoris L4-5, S1 Nml Nml Nml Nml Nml Right QuadratusFem QuadFemoris L4-5, S1 Nml Nml Nml Nml Nml MTDD
== END 2020-12-02 09:16 | disposition home or self-care (01) ==
PROVIDERS: PCP Family Medicine; Visit Provider Nurse Practitioner Family
DX: R20.0 Anesthesia of skin (principal)
CPT/HCPCS: 95886; 95911

== ENCOUNTER → 2020-12-24 11:01 | Outpatient (CLI) | payer BC, SELFPAY ==
--- NOTE | ~2020-12-24 | CT_ITS ---
EXAMINATION: CT abdomen pelvis wo con EXAM DATE: 12/24/2020 11:32 INDICATION: L abd pain with painful urination, nausea, hx of kidney stones. History endometriosis. TECHNIQUE: Spiral CT of the abdomen and pelvis was performed without contrast. Axial, coronal and sag ittal images were reviewed. The dose-length product (DLP) for this examination was 1111.54 mGy-cm. The exposure was tailored according to patient size (auto mA exposure control), and iterative reconst ruction (ASIR) was used as additional dose reduction technique. Comparison is made to prior examinati on from 10/06/2020. FINDINGS: Punctate left inferior calyceal stone. No ureteral stones or hydronephrosis. The uterus is not identified and has likely been surgically resected. The bladder is unremarkable. There is hepa tic steatosis without suspicious focal lesion identified. Spleen, adrenal glands, pancreas are unrema rkable. Gallbladder not identified, patient likely has had cholecystectomy. There is no retroperito kenn or pelvic lymphadenopathy. No abdominal wall hernias. The appendix is normal. The stomach and small bowel are unremarkable. There is expected amount of c olonic stool. No free intraperitoneal gas. The heart is normal in size. There are no pericardial or pleural effusions. The lung bases are unremarkable. There are no osteoblastic or osteolytic les ions identified. IMPRESSION: Punctate left nephrolithiasis. Otherwise unremarkable exam. Reviewed, dictated and finalized at location B.
== END ==
PROVIDERS: PCP Family Medicine; Visit Provider Urology
DX: N20.0 Calculus of kidney (principal)
CPT/HCPCS: 74176

== ENCOUNTER 2021-03-25 19:23 | Emergency (ER) | payer BC, SELFPAY ==
--- NOTE | ~2021-03-25 | XR_ITS ---
EXAMINATION: XR knee RT min 4V DATE: 03/25/2021 19:56 INDICATION: Right knee pain. TECHNIQUE: 4 views of right knee were obtained. COMPARISON: Right knee radiographs 05/11/2018 FINDINGS: Bone alignment is normal. No fracture. There is mild tricompartmental osteoarthritis. No kn ee joint effusion. IMPRESSION: 1. Mild right knee osteoarthritis. 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
[2021-03-25 19:29] VITALS: BP 152/84; PULSE 63; RESP 16; TEMP 36.6; O2SAT 98
--- NOTE | 2021-03-25 19:33 | ED.EXTPRO ---
HPI - Extremity Problem General Chief complaint: Extremity Problem,Nontraumatic Stated complaint: rt leg pain Time Seen by Provider: 03/25/21 19:33 Source: patient, RN notes reviewed and old records reviewed Mode of arrival: ambulatory Limitations: no limitations History of Present Illness HPI Narrative: 40 year old female who presents to [facility] care with complaints of pain to her right knee which radiates down the anterior aspect of her lower leg to ankle. Patient denies any tingling or numbness to her foot, denies any known injury to her knee. Patient states that she has had nerve conduction study to her leg which was negative. Patient reports that pain is increased with ambulation and weight bearing. she has used ice and heat to her knee and has been taking Ibuprofen with no improvement in her discomfort. Related Data Home Medications Medication Instructions Recorded Confirmed citalopram 40 mg tablet 40 mg PO DAILY 09/18/19 03/25/21 metoprolol succinate 25 mg 25 mg PO DAILY 11/18/19 03/25/21 tablet,extended release 24 hr aspirin 81 mg tablet,delayed 81 mg PO DAILY 01/09/20 03/25/21 release atorvastatin 10 mg PO DAILY 08/04/20 03/25/21 Allergies Allergy/AdvReac Type Severity Reaction Status Date / Time codeine Allergy Mild Headache Verified 03/25/21 19:30 Review of Systems Review of Systems: CONSTITUTIONAL: Denies fever, chills, or sweats. EYES: Denies visual changes, redness, or discharge. ENT: Denies rhinorrhea, congestion, sore throat, or otalgia. CARDIOVASCULAR: Denies chest pain, palpitations, or edema. RESPIRATORY: Denies cough or dyspnea. GASTROINTESTINAL: Denies abdominal pain, nausea, vomiting, or diarrhea. GENITOURINARY: Denies dysuria or hematuria. SKIN: Denies rash or itching. MUSCULOSKELETAL: Denies acute back pain, reports pain from knee down anterior lower leg to ankle or myalgia. NEUROLOGIC: Denies headache, numbness, or weakness. PSYCHIATRIC: Positive history of anxiety or depression. All systems reviewed & are unremarkable except as noted in HPI and below PMFSH Past Medical History Medical History Chronic GERD Enlarged thoracic aorta Gastroparesis Hepatic steatosis LLQ pain Morbid obesity Morbid obesity with BMI of 50.0-59.9, adult Nausea MILY on CPAP Other intervertebral disc degeneration, lumbar region PCOS (polycystic ovarian syndrome) Surgical History Surgical History H/O lithotripsy History of section 2006, 2007, 2013 History of partial hysterectomy Hx of cholecystectomy Hx of sinus surgery Family History Family History Father Hypertension Family history of chronic obstructive pulmonary disease Family history of diabetes mellitus in first degree relative Acute myocardial infarction Cerebrovascular accident Family history of coronary artery disease Diabetes mellitus Mother Hypertension Family history of diabetes mellitus in first degree relative Diabetes mellitus Grandparent Cerebrovascular accident Other Family history of malignant neoplasm Family history of malignant neoplasm of urinary bladder Social History Social History (Updated 03/28/21 @ 09:27 by Annabel Gibbs NP) Years smoked: 13 Smoking status: Former smoker Tobacco type: cigarettes Smoking end date: 08/21/11 Alcohol intake: never Substance use: never Substance use type: does not use Living arrangements: with family Gender identity (if verbalized by the patient): Female Spiritual care concerns: No Comments At time of signature, agree with nursing past medical, surgical, social and family history. There is no relevant family history pertinent to the presenting complaint Exam Narrative: GENERAL: Well-appearing, well-nourished, obese and in no acute distress. HEAD: Normocephalic, atraumati
== END 2021-03-25 20:10 | disposition home or self-care (01) ==
PROVIDERS: Emergency Provider Registered Nurse; PCP Family Medicine
DX: M25.561 Pain in right knee (principal); M79.661 Pain in right lower leg; M17.11 Unilateral primary osteoarthritis, right knee; Z87.891 Personal history of nicotine dependence; K21.9 Gastro-esophageal reflux disease without esophagitis; E66.01 Morbid (severe) obesity due to excess calories; Z68.43 Body mass index [BMI] 50.0-59.9, adult; G47.33 Obstructive sleep apnea (adult) (pediatric); E28.2 Polycystic ovarian syndrome; M51.36 Other intervertebral disc degeneration, lumbar region; I77.89 Other specified disorders of arteries and arterioles; Z90.711 Acquired absence of uterus with remaining cervical stump
CPT/HCPCS: 73564; 99213; G0463

== ENCOUNTER 2021-04-30 15:49 | Outpatient (CLI) | payer BC, SELFPAY ==
--- NOTE | ~2021-04-30 | XR_ITS ---
XR tibia fibula RT 2V 04/30/2021 16:06 Indication: Right leg pain. Palpable lump anteriorly. Procedure: 2 views right tibia/fibula Comparison: 03/25/2021 Findings: Normal mineralization. No fracture, subluxation or dislocation. There are mild degenerative changes of the right knee and ankle. No focal soft tissue abnormality. No foreign bodies. Impression: 1: Mild polyarticular osteoarthritis. 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 Impression: 1: Mild polyarticular osteoarthritis.
== END 2021-04-30 15:50 | disposition home or self-care (01) ==
LOC: ANHIMG 15:52
PROVIDERS: PCP Family Medicine; Visit Provider Physician Assistant Medical
DX: M19.09 Primary osteoarthritis, other specified site (principal)
CPT/HCPCS: 73590

== ENCOUNTER → 2021-06-16 12:15 | Outpatient (CLI) | payer BC, SELFPAY ==
--- NOTE | ~2021-06-16 | MR_ITS ---
EXAMINATION: MR knee RT wo con DATE: 06/16/2021 13:03 INDICATION: Right knee pain. TECHNIQUE: Magnetic resonance imaging (MRI) of the right knee was performed without intravenous contr ast. Sequences included axial PD-weighted FS FSE, coronal PD-weighted FSE and PD-weighted FS FSE, sag ittal PD-weighted FSE, and sagittal T2-weighted FS FSE. COMPARISON: Right knee radiograph 01/23/2021, MRI 05/20/2018 FINDINGS: Medial compartment: Medial meniscus is normal. Medial compartment cartilage is normal. There are tiny osteophytes. Lateral compartment: Lateral meniscus is normal. Lateral compartment cartilage is normal. There are tiny osteophytes. Patellofemoral compartment: There is deep cartilage fissuring of patellar medial and lateral facets. There is shallow partial-thi ckness cartilage loss of patellar median ridge. There is shallow partial-thickness cartilage loss of medial and lateral trochlea. Ligaments and tendons: There is chronic thickening and increased signal in anterior cruciate ligament and posterior cruciate ligament, likely mucoid degeneration. Medial collateral ligament and lateral collateral ligament com plex are normal. There is mild patellar tendinopathy. Fluid: There is a small knee joint effusion. There is a small Byers's cyst. Osseous/other: Red marrow expansion is noted. IMPRESSION: 1. Moderate chondrosis of patellofemoral compartment. 2. Small knee joint effusion. 3. Small Byers's cyst. 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
== END ==
PROVIDERS: PCP Family Medicine; Visit Provider Nurse Practitioner Family
DX: M25.461 Effusion, right knee (principal); M71.21 Synovial cyst of popliteal space [Baker], right knee
CPT/HCPCS: 73721

== ENCOUNTER 2021-08-05 01:37 | Day surgery (SDC) | payer BC, SELFPAY ==
[2021-07-28 10:59] VITALS: BMI 46.0
--- NOTE | 2021-07-28 11:17 | PC.NURSE ---
Report to the Outpatient Waiting Room, entrance under the green pavilion located off [facility], at time 0700 on date 08/05/21. OR Time: 0900. - You and your visitor will be asked a series of questions to screen for COVID 19 for your protection. - A mask is required within the hospital. - Only one visitor is allowed at this time. Patient visitors will be guided where to wait when not with patient. Preoperative COVID Testing Requirements: No COVID Test needed if: (proof is required; if not received patient will have Rapid Test prior to entry) - Patient has received COVID Vaccine at least 14 days prior to procedure date or - Patient has positive COVID test result within last 90 days of surgery date. COVID Test needed if above criteria is not met If not COVID vaccinated a COVID test must be conducted within 72 hours of surgery and patient is asked to isolate self from time of testing until procedure. You will go to the [facility] for your COVID testing. The [facility] site is located at the corner of [address] [facility]. You will only be called if COVID results are positive and your surgeon may reschedule your elective surgery date. Patients may have clear liquids (water, carbonated beverages, clear teas, apple juice) until 3 hours prior to surgery with a maximum of 20 ounces. - No food from midnight until time of surgery - Infants may have breast milk until 4 hours before surgery, infant formula 6 hours prior to surgery. - Children will be allowed to drink immediately following surgery. If applicable, please bring a bottle or sippy cup to assist with drinking. Juice, water, soda, and popsicles are readily available. For infants on formula, please bring formula the day of surgery. Pacifiers are allowed. Take the following medications with a SIP of water the morning of surgery: CITALOPRAM, INHALER, FLONASE (IF NEEDED), METOPROLOL Medications to discontinue per physician: VITAMINS/SUPPLEMENTS Date to take last dose: 08/01/21 (HAS ALREADY STOPPED ASPIRIN) Please no make-up, nail faroese, hairspray, perfume, deodorant, or body powder the day of surgery. No jewelry (including any body piercings) or valuables the day of surgery, leave them at home. Please take a shower or bath the night before, or the morning of, surgery with an antibacterial soap. Wear comfortable, loose fitting clothing. Children are encouraged to wear pajamas. - Jewelry must be removed prior to entering the operating room. Rings and piercings that are not removed may be cut off. - The hospital will not accept responsibility for valuables. - Please leave all valuables, including medications, at home the day of surgery. If you are going home after surgery, a licensed logging truck driver must drive you home. - NO public transportation without another adult. - We recommend that an adult stay with you for 24 hours following discharge. - We also recommend that you do not drive, make important decision, drink alcoholic beverages, or take any drugs that were not prescribed by your health care provider for at least 24 hours after your discharge time. For Pediatric surgeries, we recommend two adults accompany the child home (only one inside the building at this time). Follow any additional instructions given to you from your surgeon. Telephone instructions given to JACI MILLER and asked if any additional questions and then verbalized understanding. Patient advised to call surgeon office or pre surgery nurse liaison [phone] if any additional questions.
--- NOTE | 2021-08-04 13:04 | WPDANESEPPF ---
Anes - Initial Pre Proc Eval Procedure: Operation Date: 08/05/21 07:30 Proposed Procedures p Panniculectomy - Forest Nicole MD Date/Time: 08/04/21 13:04 Surgeon: Forest Nicole MD Pre Op Diagnosis: excess abdominal skin Patient Data Age: 40 Gender: F Height: 1.66 m Weight: 127.46 kg Allergies Allergy/AdvReac Type Severity Reaction Status Date / Time codeine Allergy Mild Headache Verified 08/05/21 06:33 Home Medications Medication Instructions Recorded Confirmed Type citalopram 40 mg tablet 40 mg PO DAILY 09/18/19 08/05/21 History metoprolol succinate 25 mg 25 mg PO DAILY 11/18/19 08/05/21 History tablet,extended release 24 hr aspirin 81 mg tablet,delayed 81 mg PO DAILY 01/09/20 08/05/21 History release atorvastatin 10 mg PO DAILY 08/04/20 08/05/21 History clindamycin phosphate 1 % topical See Rx Instructions .ROUTE 12/04/20 08/05/21 Rx solution .COMPLEX #60 ml fluticasone propionate 50 See Rx Instructions .ROUTE 06/16/21 08/05/21 Rx mcg/actuation nasal .COMPLEX #48 ml spray,suspension albuterol sulfate 90 mcg/actuation 1 inh INHALATION Q4H PRN #8.5 g 06/28/21 08/02/21 Rx aerosol inhaler hydrocodone 5 mg-acetaminophen 325 1 tablet PO Q6H #30 tablet 07/19/21 08/05/21 Rx mg tablet ondansetron HCl 4 mg tablet 4 mg PO Q6H PRN #30 tablet 07/19/21 08/02/21 Rx meloxicam 15 mg PO DAILY PRN 07/28/21 08/05/21 History multivitamin 1 tablet PO DAILY 07/28/21 08/05/21 History omeprazole 40 mg capsule,delayed 40 mg PO DAILY 08/03/21 08/05/21 History release Patient hx anesthesia problems: none Family hx anesthesia problems: none Results Review: All pre-operative results and documents have been reviewed as part of the pre-operative evaluation. [facility] Past Medical History Medical History Anxiety Arthritis Atrial fib/flutter, transient BMI 45.0-49.9, adult Chondromalacia, patella Chronic GERD Claustrophobia COPD (chronic obstructive pulmonary disease) Ear pain Enlarged thoracic aorta Gastroparesis Hepatic steatosis History of anesthesia problem Kidney stones Lateral meniscus tear LLQ pain Morbid obesity Morbid obesity with BMI of 50.0-59.9, adult Nausea MILY (obstructive sleep apnea) MILY on CPAP Other intervertebral disc degeneration, lumbar region PCOS (polycystic ovarian syndrome) Right knee pain SOB (shortness of breath) on exertion Vertigo Surgical History Surgical History H/O lithotripsy History of section 2006, 2007, 2013 History of partial hysterectomy Hx of cholecystectomy Hx of sinus surgery Family History Family History Father Hypertension Family history of chronic obstructive pulmonary disease Family history of diabetes mellitus in first degree relative Acute myocardial infarction Cerebrovascular accident Family history of coronary artery disease Diabetes mellitus Mother Hypertension Family history of diabetes mellitus in first degree relative Diabetes mellitus Grandparent Cerebrovascular accident Other Arthritis Depression Family history of malignant neoplasm Family history of malignant neoplasm of urinary bladder HLD (hyperlipidemia) Heart disease Kidney disorder Social History Social History Smoking packs per day: 0.5 Smoking cigarettes per day: 10.0 Years smoked: 5 Smoking pack-years: 2.50 Smoking status: Former smoker Tobacco type: cigarettes Smoking end date: 08/21/12 Alcohol intake: never Substance use: never Substance use type: does not use Living arrangements: with family 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
[2021-08-05] VITALS (10 sets, daily range): BP systolic 117–140; BP diastolic 59–72; PULSE 68–100; RESP 12–28; TEMP 36.1–36.8; O2SAT 92–100
[2021-08-05] MEDS: LACTATED RINGERS 1,000 ML 30 ML IV CONT ×2 (06:59→09:46)
--- NOTE | 2021-08-05 07:04 | WPDHPUPDATE1 ---
History and Physical Update Update Date/Time: 08/05/21 07:04 History and Physical has been reviewed, including an updated exam of the patient. There are NO changes in the patient's condition. Risks, benefits, and alternatives have been discussed and questions answered. Patient agrees to proceed with procedure.
[2021-08-05 07:18] LABS: Urine Cotinine NEGATIVE
[2021-08-05] MEDS: ceFAZolin 3 GM/D5W 100 ML 100 ML IVPB (07:32)
[2021-08-05] MEDS: TRANEXAMIC ACID 1,000MG/ISO100 1,000 MG/100 ML BAG 200 MG IVPB (07:32)
[2021-08-05] MEDS: LACTATED RINGERS IRRIG 1,000 ML, LIDOCAINE HCL 1% LOCAL INJ 50 ML, EPINEPHrine HCL INJ ... INFILTRATE (08:17)
--- NOTE | 2021-08-05 09:27 | P.OP_ITS ---
Procedure Note - Detailed Date of Procedure 08/05/21 Pre-op Diagnosis excess abdominal skin Post-op Diagnosis same Procedure Performed Panniculectomy Surgeon Forest Nicole MD Anesthesia general Findings Tissue removed 3948 g Description of Procedure Preoperatively the risks, benefits, alternatives were discussed in extensive detail. I want her to be very realistic about the risks involved as well as expectations. Made sure answered all of her questions to her satisfaction. Consent obtained. In a standing position she was marked in the preoperative holding area. She verified these markings. She was taken to the operating room placed supine on t he operating room table. Anesthesia was provided by anesthesiology and prepped and draped in a standard sterile fashion. Surgical time-out was taken. I did a thorough abdominal examination. Stab i ncisions were made and I tumesced with a tumescent solution. Once adequate time for hemostasis a 10 blade used to make the lower incision. I continued down to the level of fascia and I did a wedge resection once verify my upper markings. I did no undermining. Copiously irrigated with saline solution and verified strict hemostasis. Nineteen Jessica drains were placed bilateral. I closed using 2-0 PDS followed by 1 Stratafix followed by 3-0 Stratafix in a running subcuticular 4-0 Monocryl and tissue glue. Dressings were placed. She was awoke and taken to the PACU without difficulty. All instrument sponge counts were correct at the end of the case. Estimated Blood Loss 100 Drains Yes (bilateral jessica) Packing No Pathology none sent Complications No immediate complications Condition stable Disposition PACU
[2021-08-05] MEDS: ONDANSETRON INJ 4 MG/2 ML VIAL IV PUSH (10:12)
[2021-08-05] MEDS: diphenhydrAMINE HCl INJ 50 MG/ML VIAL 6.25 MG IV PUSH ×2 (10:20→10:30)
[2021-08-05] MEDS: SCOPOLAMINE 1.5 MG PATCH TRANSDERM (10:23)
[2021-08-05] MEDS: fentaNYL CITRATE INJ (*CRX) 100 MCG/2 ML VIAL 25 MCG IV PUSH ×3 (10:36→11:05)
--- NOTE | 2021-08-05 11:13 | PC.NURSE ---
This patient, Josefa Costello, was received from PACU on 08/05/21 at 1113 per stretcher. Patient oriented to unit policies and routines
[2021-08-05] MEDS: LACTATED RINGERS 1,000 ML 125 ML IV CONT (12:15)
[2021-08-05] MEDS: MORPHINE SULFATE (*CRX) 2 MG/ML INJ IV PUSH ×3 (12:15→16:22)
[2021-08-05] MEDS: carisoprodoL (*CRX) 350 MG TABLET PO ×2 (12:16→18:20)
[2021-08-05] MEDS: ENOXAPARIN 40 MG/0.4 ML SYRINGE SUB-Q (16:21)
[2021-08-05] MEDS: diazePAM (*CRX) 5 MG TABLET PO (16:21)
[2021-08-05] MEDS: DOCUSATE SODIUM 100 MG CAPSULE PO (18:20)
[2021-08-05] MEDS: oxyCODONE/ACETAMINOPHEN (*CRX) 5-325 MG TABLET PO (18:25)
[2021-08-06] MEDS: carisoprodoL (*CRX) 350 MG TABLET PO ×3 (00:05→11:23)
[2021-08-06] MEDS: oxyCODONE/ACETAMINOPHEN (*CRX) 5-325 MG TABLET PO ×3 (00:05→11:23)
[2021-08-06 00:13] VITALS: BP 122/60; PULSE 68; RESP 18; TEMP 36.8; O2SAT 97
[2021-08-06 04:15] VITALS: BP 108/56; PULSE 58; RESP 16; TEMP 36.8; O2SAT 98
--- NOTE | 2021-08-06 07:16 | WPDPN ---
Progress Note: A&P Assessment and Plan (1) Panniculitis: Code(s): M79.3 - Panniculitis, unspecified Status: Acute Assessment and Plan: She is doing very well after panniculectomy. Will discharge home. She has a full list of instructions. She understands what monitor for. This was a lengthy open-ended conversation making sure answered all of her questions. We will see her back. Call with any questions or concerns in the meantime. Subjective Date/time seen: 08/06/21 07:16 She is doing very well today. When I walk in the room she is up and walking around. She is tolerating p.o.. No nausea vomiting. No fevers or chills. No shortness of breath. No chest pain. No calf tenderness. She had a little drainage on the right side of her abdomen but this has improved. Review of Systems Review of Systems: All systems reviewed & are unremarkable except as noted in HPI and below Exam Narrative: Alert and oriented no obvious distress Respiratory on labored Abdomen soft. No signs of infection. No hematoma. No seroma. No calf tenderness. Negative Homans. Objective Data Vital Signs Vital Signs: Vital Signs - 24 hr 08/05/21 09:46 08/05/21 10:00 08/05/21 10:15 Temperature 36.1 C L Pulse Rate 90 100 85 Respiratory Rate 12 20 20 Blood Pressure 117/63 127/64 140/65 Pulse Oximetry 99 100 100 08/05/21 10:30 08/05/21 10:45 08/05/21 11:00 Temperature Pulse Rate 92 76 71 Respiratory Rate 20 14 17 Blood Pressure 138/67 124/66 130/66 Pulse Oximetry 92 100 100 08/05/21 12:00 08/05/21 16:00 08/05/21 19:58 Temperature 36.8 C 36.6 C 36.6 C Pulse Rate 94 88 74 Respiratory Rate 18 28 H 18 Blood Pressure 130/72 126/70 123/59 L Pulse Oximetry 100 98 98 08/06/21 00:13 08/06/21 04:15 Temperature 36.8 C 36.8 C Pulse Rate 68 58 L Respiratory Rate 18 16 Blood Pressure 122/60 108/56 L Pulse Oximetry 97 98 Intake/Output Intake/Output: Intake & Output 08/03/21 08/04/21 08/05/2117/21 23:59 23:59 23:59 23:59 Intake Total 1900 200 Output Total 2755 50 Balance -855 150 Meds/Results Medications: Active Medications Generic Name Dose Route Start Last Admin Trade Name Freq PRN Reason Stop Dose Admin Albuterol 1 puff 08/05/21 11:13 Albuterol Sulfate (*Sp) Aerosol 1 Puff INHALATION Q4HRT PRN shortness of breath or wheezing Atorvastatin Calcium 10 mg 08/06/21 09:00 Atorvastatin 10 Mg Tablet PO DAILY SIMA Carisoprodol 350 mg 08/05/21 12:00 08/06/21 05:51 Carisoprodol (*Crx) 350 Mg Tablet PO 350 mg Q6HR SIMA Administration Citalopram Hydrobromide 40 mg 08/06/21 09:00 Citalopram Hydrobromide 20 Mg Tablet PO DAILY SIMA Diazepam 5 mg 08/05/21 09:33 08/05/21 16:21 Diazepam (*Crx) 5 Mg Tablet PO 5 mg TID PRN Administration Anxiety Docusate Sodium 100 mg 08/05/21 21:00 08/05/21 18:20 Docusate Sodium 100 Mg Capsule PO 100 mg Q12HR SIMA Administration Enoxaparin Sodium 40 mg 08/05/21 16:00 08/05/21 16:21 Enoxaparin 40 Mg/0.4 Ml Syringe SUB-Q 40 mg DAILY SIMA Administration Lactated Ringer's 1,000 mls @ 125 mls/hr 08/05/21 09:35 08/05/21 12:15 Lr - Lactated Ringers Iv IV CONT 125 mls/hr .Q8H SIMA Administration Metoprolol Succinate 25 mg 08/06/21 09:00 Metoprolol Succinate Ext Rel 25 Mg Tabcr PO DAILY SIMA Morphine Sulfate 2 mg 08/05/21 09:33 08/05/21 16:22 Morphine Sulfate (*Crx) 2 Mg/Ml Inj IV PUSH 2 mg Q2H PRN Administration Pain Multivitamins Therapeutic 1 tablet 08/06/21 09:00 Multivitamins Therapeutic Tab (*Bkc) PO DAILY SIMA Ondansetron HCl 4 mg 08/05/21 09:33 Ondansetron Inj 4 Mg/2 Ml Vial IV PUSH Q6H PRN Nausea Oxycodone/Acetaminophen 1 - 2 tablet 08/05/21 09:33 08/06/21 05:51 Oxycodone/Acetaminophen (*Crx) 5-325 Mg Tablet PO 2 tablet Q6H PRN Administration Pain Pantoprazole Sodium 40 mg 08/06/21 09:00
--- NOTE | 2021-08-06 07:22 | PM.DS ---
DS: Admitting Diagnosis Discharge Date 08/06/2021 Admitting Diagnosis Panniculitis DS: Discharge Diagnosis Discharge Diagnosis (1) Panniculitis: Code(s): M79.3 - Panniculitis, unspecified Status: Acute DS: Summary Hospital Course Hospital Course: Patient underwent panniculectomy uneventfully. Postoperatively she has done well. Will plan for discharge home. Time Spent with Patient Time attestation: Total time spent providing and/or coordinating discharge services: Exam Narrative: Alert and oriented no obvious distress Respiratory on labored Abdomen soft. No signs of infection. No hematoma. No seroma. No calf tenderness. Negative Homans. Discharge Plan Discharge Patient Disposition: Home, Self-Care Discharge Instructions: POST OPERATIVE DISCHARGE INSTRUCTIONS [facility] M[facility] [address] [facility] [address] [place] [address] [address] for 24 hours after anesthesia and while you are taking pain medication. Take all prescribed medication as directed Diet as tolerated. No lifting or activity that raises blood pressure for 48 hours. Regular walking / ambulation. No showering until directed to. Once you shower do not take pain medication before showering as the combination of medication and heat may cause you to feel dizzy or pass out. No pools or tubs for 2 weeks. Call with any questions or concerns. Dressing Care: May shower If you have any questions or concerns, please call the office . If it is after hours you will be directed to the technical communication teacher exchange. Shortness of breath, chest pain, or other medical emergency dial 911 / proceed to the Emergency Room. Patient Instructions: [facility] (GEN) Stand Alone Forms: General Discharge Instructions Follow-up/Referrals: Forest Nicole MD [Physician] - 1 Week Discharge Medications: Continued citalopram [Celexa] 40 mg tablet 40 mg PO DAILY RF: 0 ondansetron HCl [Zofran] 4 mg tablet 4 mg PO Q6H PRN (Reason: nausea and vomiting) Qty: 30 RF: 0 hydrocodone-acetaminophen 5-325 mg tablet 1 tablet PO Q6H Qty: 30 RF: 0 metoprolol succinate 25 mg tablet extended release 24 hr 25 mg PO DAILY RF: 0 aspirin 81 mg tablet,delayed release (DR/EC) 81 mg PO DAILY RF: 0 omeprazole 40 mg capsule,delayed release(DR/EC) 40 mg PO DAILY RF: 0 atorvastatin 10 mg tablet 10 mg PO DAILY RF: 0 multivitamin Tablet 1 tablet PO DAILY RF: 0 meloxicam 15 mg tablet 15 mg PO DAILY PRN (Reason: Pain) RF: 0 clindamycin phosphate 1 % solution See Rx Instructions .ROUTE .COMPLEX Qty: 60 RF: 0 fluticasone propionate 50 mcg/actuation spray,suspension See Rx Instructions .ROUTE .COMPLEX Qty: 48 RF: 0 albuterol sulfate [ProAir HFA] 90 mcg/actuation HFA aerosol inhaler 1 inh inhalation Q4H PRN (Reason: shortness of breath or wheezing) Qty: 8.5 RF: 2 Attending physician on admission: Forest Nicole
[2021-08-06 07:55] VITALS: BP 121/69; PULSE 61; RESP 16; TEMP 36.5; O2SAT 97
--- NOTE | 2021-08-06 08:26 | WPDANESPN ---
Anes - Prog Note Post-Op Date/Time: 08/06/21 08:26 Cardiovascular status: normal Respiratory status: normal Airway patency: baseline Mental status: baseline Post-Op hydration status: normal Vital Signs: Last Vital Signs Temp 36.8 C 08/06/21 04:15 Pulse 58 L 08/06/21 04:15 Resp 16 08/06/21 04:15 BP 108/56 L 08/06/21 04:15 Pulse Ox 98 08/06/21 04:15 Pain Score (VAS): 3 I/O: Intake & Output 08/05/21 08/06/21 08/06/21 23:59 07:59 15:59 Intake Total 1400 200 Output Total 2620 50 Balance -1220 150 Post-procedural complaints: none Patient Feedback: Patient satisfied with anesthetic care.
[2021-08-06] MEDS: DOCUSATE SODIUM 100 MG CAPSULE PO (08:35)
[2021-08-06] MEDS: MULTIVITAMINS THERAPEUTIC TAB (*BKC) 1 TABLET PO (08:35)
[2021-08-06] MEDS: ATORVASTATIN 10 MG TABLET PO (08:35)
[2021-08-06 08:52] VITALS: PULSE 64
[2021-08-06] MEDS: METOPROLOL SUCCINATE EXT REL 25 MG TABCR PO (08:52)
[2021-08-06] MEDS: CITALOPRAM HYDROBROMIDE 20 MG TABLET 40 MG PO (08:53)
[2021-08-06] MEDS: PANTOPRAZOLE 40 MG TABLET PO (08:53)
[2021-08-06] MEDS: ENOXAPARIN 40 MG/0.4 ML SYRINGE SUB-Q (11:24)
== END 2021-08-06 13:44 | disposition home or self-care (01) ==
LOC: ANHSURGERY 06:22 → ANHOB2 11:29
PROVIDERS: PCP Family Medicine; Visit Provider Surgery Plastic and Reconstructive Surgery
PROC: 0JB80ZZ Excision of Abdomen Subcutaneous Tissue and Fascia, Open Approach (ICD-10-PCS; CPT 15830; principal; 2021-08-05 07:30)
DX: M79.3 Panniculitis, unspecified (principal); J44.9 Chronic obstructive pulmonary disease, unspecified; G47.33 Obstructive sleep apnea (adult) (pediatric); F41.9 Anxiety disorder, unspecified; I48.91 Unspecified atrial fibrillation; K31.84 Gastroparesis; E28.2 Polycystic ovarian syndrome; Z79.51 Long term (current) use of inhaled steroids; Z79.82 Long term (current) use of aspirin; Z87.891 Personal history of nicotine dependence; E66.01 Morbid (severe) obesity due to excess calories; Z68.42 Body mass index [BMI] 45.0-49.9, adult; Z79.899 Other long term (current) drug therapy
CPT/HCPCS: 15830; 80307; 99199; A9270; J0171; J0690; J1100; J1170; J1200; J1650; J2250; J2270; J2405; J2704; J2710; J3010; J7120

== ENCOUNTER 2021-08-12 16:28 | Outpatient (CLI) | payer BC, SELFPAY ==
--- NOTE | ~2021-08-12 | MM_ITS ---
EXAMINATION: MM screening oanh BI w eliza HISTORY: Screening TECHNIQUE: Craniocaudal and mediolateral oblique 3-D tomosynthesis images were obtained and synthetic 2-D images were generated. CAD analysis was submitted and interpreted. COMPARISON: No prior mammogram is available for comparison at this institution. BREAST PARENCHYMAL COMPOSITION: There are scattered areas of fibroglandular density. FINDINGS: There is no evidence of suspicious mass, calcification, or architectural distortion to sugg est malignancy in either breast. There has been no suspicious interval change. IMPRESSION: 1. No mammographic evidence of malignancy. 2. Recommend routine screening mammography in one year. BI-RADS Category 1: Negative Reviewed, dictated and finalized at location A. RY OPERATOR
== END 2021-08-12 16:29 | disposition home or self-care (01) ==
PROVIDERS: PCP Family Medicine; Visit Provider Nurse Practitioner Family
DX: Z12.31 Encounter for screening mammogram for malignant neoplasm of breast (principal)
CPT/HCPCS: 77063; 77067

== ENCOUNTER 2021-10-28 10:36 | Outpatient (CLI) | payer BC, SELFPAY ==
--- NOTE | ~2021-10-28 | XR_ITS ---
EXAMINATION: XR chest 2V EXAM DATE: 10/28/2021 11:02 INDICATION: R06.00 -[id number], Hx Leaky Valve TECHNIQUE: Frontal and lateral projections of the chest obtained and reviewed. Comparison is made to prior examination from 09/03/2020. FINDINGS: The lungs are clear. There are no pleural effusions. The cardiomediastinal silhouette is within normal limits. There is no pneumothorax suspected. The bones and soft tissues are unremarkab le. IMPRESSION: No acute cardiopulmonary findings. 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 [employer] W[employer] TRA[employer]
[2021-10-28 10:55] LABS: Basophils Percent Auto 0.4 % (0.2-1.2); Eosinophils Absolute Auto 0.1 K/mm3 (0-0.3); Eosinophils Percent Auto 1.7 % (0-4.4); Hematocrit 37.4 % (37.0-47.0); Hemoglobin 11.9 g/dL (12.0-15.0); Immature Granulocyte Absolute 0.06 K/mm3 (0.00-0.031); Immature Granulocyte Percent A 0.8 % (0-0.5); Lymphocytes Absolute Auto 1.68 K/mm3 (0.9-3.2); Lymphocytes Percent Auto 23.8 % (18.3-44.2); Mean Corpuscular HGB Conc 31.8 g/dl (32-36); Mean Corpuscular Hemoglobin 28.1 pg (26-34); Mean Corpuscular Volume 88.2 fl (80-100); Mean Platelet Volume 9.8 fl (7.4-10.4); Monocytes Absolute Auto 0.4 K/mm3 (0.1-0.6); Monocytes Percent Auto 5.9 % (2.6-8.5); Neutrophils Absolute Auto 4.8 K/mm3 (1.3-6.7); Neutrophils Percent Auto 67.4 % (45.5-73.1); Platelet Count Result 296 k/mm3 (150-375); Red Blood Count 4.24 M/mm3 (4.2-5.4); Red Cell Distribution Width 13.5 % (11.5-14.5); White Blood Count 7.1 K/mm3 (4.5-10.0)
[2021-10-28 11:04] LABS: Anion Gap 6 mmol/L (8-16); Blood Urea Nitrogen 10 mg/dL (7-17); Calcium 8.9 mg/dL (8.4-10.2); Carbon Dioxide 29 mmol/L (22-30); Chloride 105 mmol/L (98-107); Estimated Glomerular Filt Rate > 60; Glucose 91 mg/dL (65-110); Potassium 4.2 mmol/L (3.4-5.0); Sodium 140 mmol/L (137-145)
== END 2021-10-28 10:37 | disposition home or self-care (01) ==
PROVIDERS: PCP Family Medicine; Visit Provider Family Medicine
DX: R06.00 Dyspnea, unspecified (principal)
CPT/HCPCS: 36415; 71046; 80048; 85025

== ENCOUNTER 2021-10-28 15:03 | Outpatient (CLI) | payer BC, SELFPAY | END 2021-10-28 15:04 | disposition home or self-care (01) | PROVIDERS: PCP Family Medicine; Visit Provider Internal Medicine Gastroenterology | DX: R19.7 Diarrhea, unspecified (principal) | CPT/HCPCS: 87045; 87177; 87209; 87427; 89055 ==

== ENCOUNTER 2021-11-19 18:07 | Emergency (ER) | payer BC, SELFPAY ==
[2021-11-19 18:21] VITALS: BP 123/76; PULSE 79; RESP 16; TEMP 37.3; O2SAT 100
[2021-11-19 18:24] VITALS: BP 123/76; PULSE 79; RESP 16; TEMP 37.3; O2SAT 100
--- NOTE | 2021-11-19 19:10 | ED.URI ---
HPI - URI/Sore Throat General Chief Complaint: Upper Respiratory Infection Stated Complaint: uri Time Seen by Provider: 11/19/21 18:53 Source: patient and RN notes reviewed Mode of arrival: ambulatory Limitations: no limitations History of Present Illness HPI Narrative: Patient presents today with dry cough, nasal congestion, ear pressure with left greater than right. Patient has been sick for a total of 1 month. On 11/05/2021, she was seen by her PCP and put on 10 days of cefdinir. States her green sputum and symptoms improved, but several days ago her congestion and sinus pressure worsened again. Reports that her sputum is no longer green. Reports her cough is now dry. She has been taking Sudafed, Zyrtec, using her inhaler and Flonase without much relief. MD elicited complaint: cough and nasal congestion Related Data Home Medications Medication Instructions Recorded Confirmed citalopram 40 mg tablet 40 mg PO DAILY 09/18/19 11/19/21 metoprolol succinate 25 mg 25 mg PO DAILY 11/18/19 11/19/21 tablet,extended release 24 hr aspirin 81 mg tablet,delayed 81 mg PO DAILY 01/09/20 11/19/21 release atorvastatin 10 mg PO DAILY 08/04/20 11/19/21 clotrimazole-betamethasone 1 applic TOPICAL DIRECTED 11/19/21 11/19/21 Allergies Allergy/AdvReac Type Severity Reaction Status Date / Time codeine Allergy Mild Headache Verified 11/19/21 18:18 Review of Systems Review of Systems: CONSTITUTIONAL: Denies body aches, fever, chills, or sweats. EYES: Denies visual changes, redness, or discharge. ENT: Denies rhinorrhea. + Nasal congestion, sinus pressure, sore throat, ear pain CARDIOVASCULAR: Denies chest pain, palpitations, or edema. RESPIRATORY: Denies cough or dyspnea. GASTROINTESTINAL: Denies abdominal pain, nausea, vomiting, or diarrhea. GENITOURINARY: Denies dysuria or hematuria. SKIN: Denies rash, itching, or wounds. MUSCULOSKELETAL: Denies back pain, joint pain, or myalgia. NEUROLOGIC: Denies headache, numbness, tingling, or weakness. PSYCH: Denies depression or anxiety. [facility] Past Medical History Medical History Abdominal swelling Adenomatous colon polyp Anxiety Arthritis Atrial fib/flutter, transient BMI 45.0-49.9, adult Bronchitis Chondromalacia, patella Chronic GERD Claustrophobia COPD (chronic obstructive pulmonary disease) Dyspnea on exertion Ear pain Enlarged thoracic aorta Gastroparesis Hepatic steatosis History of anesthesia problem Kidney stones Lateral meniscus tear LLQ pain Morbid obesity Morbid obesity with BMI of 50.0-59.9, adult Nausea MILY (obstructive sleep apnea) MILY on CPAP Other intervertebral disc degeneration, lumbar region PCOS (polycystic ovarian syndrome) Pharyngitis Right knee pain SOB (shortness of breath) on exertion Vertigo Surgical History Surgical History H/O lithotripsy History of section 2006, 2007, 2013 History of partial hysterectomy Hx of cholecystectomy Hx of sinus surgery S/P panniculectomy Family History Family History Father Hypertension Family history of chronic obstructive pulmonary disease Family history of diabetes mellitus in first degree relative Acute myocardial infarction Cerebrovascular accident Family history of coronary artery disease Diabetes mellitus Tobacco abuse Mother Hypertension Family history of diabetes mellitus in first degree relative Diabetes mellitus Stage 4 chronic kidney disease Grandparent Cerebrovascular accident Sibling No problems noted. Other Arthritis Depression Family history of malignant neoplasm Family history of malignant neoplasm of urinary bladder HLD (hyperlipidemia) Heart disease Kidney disorder Social History Social History (Reviewed 11/19/21 @ 19:13 by LEYDI Neil, BC
== END 2021-11-19 19:18 | disposition home or self-care (01) ==
PROVIDERS: Emergency Provider Nurse Practitioner; PCP Family Medicine
DX: J40 Bronchitis, not specified as acute or chronic (principal); J06.9 Acute upper respiratory infection, unspecified; M19.90 Unspecified osteoarthritis, unspecified site; K21.9 Gastro-esophageal reflux disease without esophagitis; J44.9 Chronic obstructive pulmonary disease, unspecified; E66.01 Morbid (severe) obesity due to excess calories; Z68.42 Body mass index [BMI] 45.0-49.9, adult; K76.0 Fatty (change of) liver, not elsewhere classified; K31.84 Gastroparesis; F40.240 Claustrophobia; I48.91 Unspecified atrial fibrillation; F41.9 Anxiety disorder, unspecified
CPT/HCPCS: 99213; G0463

== ENCOUNTER 2022-01-07 17:58 | Emergency (ER) | payer BC, SELFPAY ==
--- NOTE | ~2022-01-07 | CT_ITS ---
EXAMINATION: CT abdomen pelvis wo con DATE: 01/07/2022 19:50 INDICATION: Abdominal pain radiating to the back. TECHNIQUE: Computed tomography (CT) of the abdomen and pelvis was performed without intravenous contr ast. Automated exposure control and iterative reconstruction technique were employed. The dose-length product was 1461.58 mGy-cm. COMPARISON: CT abdomen and pelvis 12/24/2020 FINDINGS: The visualized portions of the lung bases demonstrate mild atelectasis in lingula. No pleur al effusion. The heart size is normal. No pericardial effusion. The liver and spleen are normal. Ther e are changes of cholecystectomy. The pancreas, adrenal glands, and right kidney are normal. There is a 2 mm stone in left kidney. There is a 3 mm stone in proximal left ureter. No hydronephrosis. There are no dilated loops of bowel. The appendix is normal. There are no pathologically enlarged lymph no andriy. There is no free intraperitoneal fluid. There is mild thoracolumbar spondylosis. IMPRESSION: 1. 3 mm stone in proximal left ureter. No hydronephrosis. 2. 2 mm nonobstructing left kidney stone. 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
[2022-01-07 18:08] VITALS: BP 154/89; PULSE 76; RESP 16; TEMP 36.3; O2SAT 98
[2022-01-07 18:28] LABS: Basophils Percent Auto 0.5 % (0.2-1.2); Eosinophils Absolute Auto 0.2 K/mm3 (0-0.3); Eosinophils Percent Auto 2.4 % (0-4.4); Hematocrit 36.7 % (37.0-47.0); Hemoglobin 11.8 g/dL (12.0-15.0); Immature Granulocyte Absolute 0.13 K/mm3 (0.00-0.031); Immature Granulocyte Percent A 1.5 % (0-0.5); Lymphocytes Absolute Auto 1.91 K/mm3 (0.9-3.2); Lymphocytes Percent Auto 22.5 % (18.3-44.2); Mean Corpuscular HGB Conc 32.2 g/dl (32-36); Mean Corpuscular Hemoglobin 28.4 pg (26-34); Mean Corpuscular Volume 88.4 fl (80-100); Mean Platelet Volume 9.8 fl (7.4-10.4); Monocytes Absolute Auto 0.4 K/mm3 (0.1-0.6); Monocytes Percent Auto 4.5 % (2.6-8.5); Neutrophils Absolute Auto 5.8 K/mm3 (1.3-6.7); Neutrophils Percent Auto 68.6 % (45.5-73.1); Platelet Count Result 305 k/mm3 (150-375); Red Blood Count 4.15 M/mm3 (4.2-5.4); Red Cell Distribution Width 14.4 % (11.5-14.5); White Blood Count 8.5 K/mm3 (4.5-10.0)
[2022-01-07 18:39] LABS: Alanine Aminotransferase 19 U/L (6-35); Albumin Level 4.2 g/dL (3.5-5.1); Alkaline Phosphatase 98 U/L (38-126); Anion Gap 7 mmol/L (8-16); Aspartate Amino Transferase 22 U/L (14-36); Bilirubin,Total 0.4 mg/dL (0.2-1.3); Blood Urea Nitrogen 9 mg/dL (7-17); Calcium 8.9 mg/dL (8.4-10.2); Carbon Dioxide 25 mmol/L (22-30); Chloride 103 mmol/L (98-107); Estimated CRCL calculation 114 ml/min; Estimated Glomerular Filt Rate > 60; Glucose 134 mg/dL (65-110); Potassium 3.8 mmol/L (3.4-5.0); Sodium 135 mmol/L (137-145)
[2022-01-07 18:50] LABS: Add Urine Microscopic? YES; Appearance Urine Clear (Clear); Bilirubin Urine Negative (Negative); Blood Urine Negative (Negative); Color Urine Yellow (Yellow); Glucose Urine UA Negative (Negative); Ketones Urine Negative (Negative); Leukocyte Esterase Ur Trace LEU/UL (Negative); Nitrate Urine Negative (Negative); Protein Urine Negative (Negative); Specific Grav Ur 1.025 (1.001-1.035); Urobilinogen Urine 0.2 mg/dL (<2.0); pH Urine 5.5 (5.0-9.0)
[2022-01-07 19:14] LABS: Bacteria Urine Trace /hpf; Mucus Urine Rare /lpf; RBC Urine 0-2 /hpf (0-2); Squamous Epithelial Cell Urine Rare /hpf (Few); WBC Urine 31-50 /hpf
[2022-01-07 20:02] VITALS: O2SAT 96
[2022-01-07] MEDS: SODIUM CHLORIDE 0.9% IV 1,000 ML 999 ML IV CONT (20:02)
[2022-01-07 20:04] VITALS: BP 125/66; O2SAT 97
--- NOTE | 2022-01-07 20:07 | ED.ABDPAIN ---
HPI - Abdominal Pain General Chief Complaint: Abdominal Pain Stated Complaint: abd pain Time Seen by Provider: 01/07/22 19:21 Source: patient History of Present Illness HPI narrative: Patient presents with left lower quadrant abdominal pain. Symptoms been present for the past few days have been constant achy, occasionally radiates to her left back, no clear aggravating or alleviating factors. Short she has a difficult time fully emptying her bladder she denies any nausea vomiting or diarrhea she denies any dysuria or hematuria she denies any fevers. Related Data Home Medications Medication Instructions Recorded Confirmed citalopram 40 mg tablet 40 mg PO DAILY 09/18/19 11/19/21 metoprolol succinate 25 mg 25 mg PO DAILY 11/18/19 11/19/21 tablet,extended release 24 hr aspirin 81 mg tablet,delayed 81 mg PO DAILY 01/09/20 11/19/21 release atorvastatin 10 mg PO DAILY 08/04/20 11/19/21 clotrimazole-betamethasone 1 applic TOPICAL DIRECTED 11/19/21 11/19/21 Allergies Allergy/AdvReac Type Severity Reaction Status Date / Time codeine Allergy Mild Headache Verified 01/07/22 20:03 Review of Systems Review of Systems: CONSTITUTIONAL: Denies fever, chills, or sweats. EYES: Denies visual changes, redness, or discharge. ENT: Denies rhinorrhea, congestion, sore throat, or otalgia. CARDIOVASCULAR: Denies chest pain, palpitations, or edema. RESPIRATORY: Denies cough or dyspnea. GASTROINTESTINAL: Denies nausea, vomiting, or diarrhea. GENITOURINARY: Denies dysuria or hematuria. SKIN: Denies rash or itching. MUSCULOSKELETAL: Denies back pain, joint pain, or myalgia. NEUROLOGIC: Denies headache, numbness, dizziness, or weakness. PSYCHIATRIC: Denies anxiety or depression. All systems reviewed & are unremarkable except as noted in HPI and below PMFSH Past Medical History Medical History Abdominal swelling Adenomatous colon polyp Anxiety Arthritis Atrial fib/flutter, transient BMI 45.0-49.9, adult Bronchitis Chondromalacia, patella Chronic GERD Claustrophobia COPD (chronic obstructive pulmonary disease) Dyspnea on exertion Ear pain Enlarged thoracic aorta Gastroparesis Hepatic steatosis History of anesthesia problem Kidney stones Lateral meniscus tear LLQ pain Morbid obesity Morbid obesity with BMI of 50.0-59.9, adult Nausea MILY (obstructive sleep apnea) MILY on CPAP Other intervertebral disc degeneration, lumbar region PCOS (polycystic ovarian syndrome) Pharyngitis Right knee pain SOB (shortness of breath) on exertion Vertigo Surgical History Surgical History H/O lithotripsy History of section 2006, 2007, 2013 History of partial hysterectomy Hx of cholecystectomy Hx of sinus surgery S/P panniculectomy Family History Family History Father Hypertension Family history of chronic obstructive pulmonary disease Family history of diabetes mellitus in first degree relative Acute myocardial infarction Cerebrovascular accident Family history of coronary artery disease Diabetes mellitus Tobacco abuse Mother Hypertension Family history of diabetes mellitus in first degree relative Diabetes mellitus Stage 4 chronic kidney disease Grandparent Cerebrovascular accident Sibling No problems noted. 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
[2022-01-07] MEDS: ONDANSETRON INJ 4 MG/2 ML VIAL IV PUSH ×2 (20:09→21:33)
[2022-01-07 20:27] VITALS: O2SAT 96
[2022-01-07 20:41] VITALS: O2SAT 97
[2022-01-07 20:45] VITALS: O2SAT 97
[2022-01-07] MEDS: KETOROLAC 15 MG/ML VIAL (*BKC) IV PUSH (21:33)
== END 2022-01-07 21:40 | disposition home or self-care (01) ==
PROVIDERS: Emergency Medicine; Emergency Provider Emergency Medicine; PCP Family Medicine
DX: N20.2 Calculus of kidney with calculus of ureter (principal); J44.9 Chronic obstructive pulmonary disease, unspecified; K31.84 Gastroparesis; E66.01 Morbid (severe) obesity due to excess calories; Z68.43 Body mass index [BMI] 50.0-59.9, adult; G47.33 Obstructive sleep apnea (adult) (pediatric); E28.2 Polycystic ovarian syndrome; K21.9 Gastro-esophageal reflux disease without esophagitis; M19.90 Unspecified osteoarthritis, unspecified site; F41.9 Anxiety disorder, unspecified; Z86.010 Personal history of colon polyps; Z87.442 Personal history of urinary calculi; Z79.82 Long term (current) use of aspirin; Z87.891 Personal history of nicotine dependence
CPT/HCPCS: 36415; 74176; 80053; 81001; 81025; 85025; 87077; 87086; 87186; 96365; 96375; 96376; 99284; J0131; J1885; J2405; J7030

== ENCOUNTER 2022-01-19 19:55 | Observation (INO) | payer BC, SELFPAY ==
--- NOTE | ~2022-01-19 | XR_ITS ---
EXAMINATION: XR abdomen/kub 1V INDICATION: Left flank pain TECHNIQUE: Supine views of the abdomen were obtained on 2 radiographs. COMPARISON: CT from today FINDINGS: The known left ureteropelvic junction stone and known left kidney stone or not demonstrated . The bowel gas pattern is normal. Cholecystectomy clips are present in the right upper quadrant. The re is a tubal ligation clip in the right pelvis. There is moderate osteoarthritis of the hips. IMPRESSION: 1. Known left ureteropelvic junction stone and left kidney stone not identified. Reviewed, dictated and finalized at location F. IMPRESSION: 1. Known left ureteropelvic junction stone and left kidney stone not identified .
--- NOTE | ~2022-01-19 | CT_ITS ---
EXAMINATION: CT abdomen pelvis wo con DATE: 01/19/2022 21:41 INDICATION: Left flank pain TECHNIQUE: Computed tomography (CT) of the abdomen and pelvis was performed without intravenous contr ast. The dose-length product (DLP) was 1340.78 mGy-cm. Automated exposure control and iterative recon struction technique were employed. COMPARISON: 01/07/2022 FINDINGS: Minimal dependent atelectasis is present in the lung bases. The heart size is normal. The g allbladder is surgically absent. The liver, spleen, pancreas, and adrenal glands are normal. There is a 2 mm stone at the left ureteropelvic junction. There is a 2 mm nonobstructing stone of the left ki dney. The right kidney is unremarkable. No pathologically enlarged abdominal or pelvic lymph nodes ar e identified. There is no free intraperitoneal gas or evidence of bowel obstruction. There is mild parag mbar spondylosis. IMPRESSION: 1. 2 mm stone at the left ureteropelvic junction. 2. Nonobstructing left nephrolithiasis. Reviewed, dictated and finalized at location F.
--- NOTE | ~2022-01-19 | XR_ITS ---
EXAMINATION: XR fluoroscopy no charge DATE: 01/20/2022 13:51 INDICATION: Left-sided renal stone extraction TECHNIQUE: 4 fluoroscopic images of the abdomen and pelvis were obtained during procedure performed leticia Fox. Radiologist was not present for the imaging or procedure. The amount of fluoroscopy yakelin e used during this procedure was 0.9 minutes. COMPARISON: None. FINDINGS: Thread Pulling Machine Attendant images demonstrate cholecystectomy clips in right upper quadrant. Additional likely tubal ligat ion clip in the right hemipelvis. Subsequent images demonstrate a catheter advanced proximally along the left ureter with distal tip projecting over the expected location of the left renal pelvis. No ur eteral stones identified. IMPRESSION: 1. Fluoroscopy utilized during reported left ureteral stone extraction. See procedure note for furthe r detail. Reviewed, dictated and finalized at location B. IMPRESSION: 1. Fluoroscopy utilized during reported left ureteral stone extraction. See pro cedure note for further detail.
[2022-01-19 20:02] VITALS: BP 144/100; PULSE 104; RESP 20; TEMP 36.5; O2SAT 100
[2022-01-19 20:18] LABS: Basophils Percent Auto 0.3 % (0.2-1.2); Eosinophils Absolute Auto 0.1 K/mm3 (0-0.3); Eosinophils Percent Auto 1.2 % (0-4.4); Hematocrit 37.8 % (37.0-47.0); Hemoglobin 12.2 g/dL (12.0-15.0); Immature Granulocyte Absolute 0.08 K/mm3 (0.00-0.031); Immature Granulocyte Percent A 0.7 % (0-0.5); Lymphocytes Absolute Auto 0.49 K/mm3 (0.9-3.2); Lymphocytes Percent Auto 4.6 % (18.3-44.2); Mean Corpuscular HGB Conc 32.3 g/dl (32-36); Mean Corpuscular Hemoglobin 28.5 pg (26-34); Mean Corpuscular Volume 88.3 fl (80-100); Mean Platelet Volume 10.1 fl (7.4-10.4); Monocytes Absolute Auto 0.5 K/mm3 (0.1-0.6); Neutrophils Absolute Auto 9.5 K/mm3 (1.3-6.7); Neutrophils Percent Auto 88.2 % (45.5-73.1); Platelet Count Result 344 k/mm3 (150-375); Red Blood Count 4.28 M/mm3 (4.2-5.4); Red Cell Distribution Width 14.3 % (11.5-14.5); White Blood Count 10.7 K/mm3 (4.5-10.0)
[2022-01-19 20:26] LABS: Alanine Aminotransferase 22 U/L (6-35); Albumin Level 4.2 g/dL (3.5-5.1); Alkaline Phosphatase 106 U/L (38-126); Anion Gap 8 mmol/L (8-16); Aspartate Amino Transferase 23 U/L (14-36); Bilirubin,Total 0.8 mg/dL (0.2-1.3); Blood Urea Nitrogen 16 mg/dL (7-17); Calcium 9.1 mg/dL (8.4-10.2); Carbon Dioxide 26 mmol/L (22-30); Chloride 107 mmol/L (98-107); Estimated CRCL calculation 91 ml/min; Estimated Glomerular Filt Rate > 60; Glucose 105 mg/dL (65-110); Potassium 4.4 mmol/L (3.4-5.0); Sodium 141 mmol/L (137-145)
[2022-01-19 20:56] LABS: Appearance Urine Slightly Cloudy (Clear); Bilirubin Urine Negative (Negative); Blood Urine Negative (Negative); Color Urine Yellow (Yellow); Glucose Urine UA Negative (Negative); Ketones Urine Negative (Negative); Leukocyte Esterase Ur 1+ LEU/UL (Negative); Nitrate Urine Negative (Negative); Protein Urine Negative (Negative); Specific Grav Ur 1.025 (1.001-1.035); Urobilinogen Urine 0.2 mg/dL (<2.0); pH Urine 5.5 (5.0-9.0)
[2022-01-19 21:05] LABS: Add Urine Microscopic? YES; Bacteria Urine Trace /hpf; Mucus Urine Rare /lpf; Squamous Epithelial Cell Urine Many /hpf (Few); WBC Urine 21-30 /hpf
--- NOTE | 2022-01-19 21:49 | ED.ABDPAIN ---
HPI - Abdominal Pain General Chief Complaint: Abdominal Pain Stated Complaint: recent L kidney stone Time Seen by Provider: 01/19/22 21:28 Source: patient, RN notes reviewed and old records reviewed Mode of arrival: ambulatory Limitations: no limitations History of Present Illness HPI narrative: This is a 41 year old female with history of kidney stones who presents for evaluation of left lower abdominal pain. Patiet was diagnosed with left ureteral kidney stone on 01/07/22. She reports having intermittent left flank pain since diagnosis but her pain became worse today at 2 pm. She has been having nausea and vomiting today. She denies fever or chills. She has been taking zofran and tramadol without relief. She was evaluated by Dr. Fox on . She states he stated he could possible take her to OR tomorrow but patient want to try outpatient treatment. MD elicited complaint: abdominal pain Onset (ago): hour(s) Pain Consistency: intermittent Location: LLQ Radiation: L flank Migration to: L flank Associated symptoms: nausea and vomiting Treatments prior to arrival: prescription analgesics Related Data Home Medications Medication Instructions Recorded Confirmed citalopram 40 mg tablet (Celexa) 40 mg PO DAILY 09/18/19 11/19/21 metoprolol succinate 25 mg 25 mg PO DAILY 11/18/19 11/19/21 tablet,extended release 24 hr aspirin 81 mg tablet,delayed 81 mg PO DAILY 01/09/20 11/19/21 release atorvastatin 10 mg tablet 10 mg PO DAILY 08/04/20 11/19/21 clotrimazole-betamethasone 1 1 applic topical DIRECTED 11/19/21 11/19/21 %-0.05 % topical cream Allergies Allergy/AdvReac Type Severity Reaction Status Date / Time codeine Allergy Mild Headache Verified 01/19/22 22:06 Review of Systems Review of Systems: All systems reviewed & are unremarkable except as noted in HPI and below Constitutional: Constitutional: Denies chills and Denies fatigue Cardiovascular: Cardiovascular: Denies chest pain Comments: palpitations Respiratory: Respiratory: Denies chest congestion, Denies cough and Denies dyspnea Gastrointestinal: Gastrointestinal: Reports abdominal pain, Reports nausea and Reports vomiting Genitourinary: Genitourinary: Denies hematuria, Reports nocturia, Reports dysuria and Reports flank pain Musculoskeletal: Musculoskeletal: Reports back pain PMFSH Past Medical History Medical History Abdominal swelling Adenomatous colon polyp Anxiety Arthritis Atrial fib/flutter, transient BMI 45.0-49.9, adult Bronchitis Chondromalacia, patella Chronic GERD Claustrophobia COPD (chronic obstructive pulmonary disease) Dyspnea on exertion Ear pain Enlarged thoracic aorta Gastroparesis Hepatic steatosis History of anesthesia problem Kidney stones Lateral meniscus tear LLQ pain Morbid obesity Morbid obesity with BMI of 50.0-59.9, adult Nausea MILY (obstructive sleep apnea) MILY on CPAP Other intervertebral disc degeneration, lumbar region PCOS (polycystic ovarian syndrome) Pharyngitis Right knee pain SOB (shortness of breath) on exertion Vertigo Surgical History Surgical History H/O lithotripsy History of section 2006, 2007, 2013 History of partial hysterectomy Hx of cholecystectomy Hx of sinus surgery S/P panniculectomy Family History Family History Father Hypertension Family history of chronic obstructive pulmonary disease Family history of diabetes mellitus in first degree relative Acute myocardial infarction Cerebrovascular accident Family history of coronary artery disease Diabetes mellitus Tobacco abuse Mother Hypertension Family history of diabetes mellitus in first degree relative Diabetes mellitus Stage 4 chronic kidney disease Grandparent Cerebrovascular accident Sibling No prob
[2022-01-19] MEDS: ONDANSETRON INJ 4 MG/2 ML VIAL IV PUSH (21:57)
[2022-01-19] MEDS: HYDROmorphone HCL INJ (*CRX) 1 MG/ML SYR IV PUSH (21:58)
[2022-01-19] MEDS: cefTRIAXone 2 GM in SODIUM CHLORIDE 0.9% IV 100 ML 200 ML IVPB (22:57)
[2022-01-19 23:40] LABS: SARS-CoV-2 RNA PCR Negative
[2022-01-20] VITALS (21 sets, daily range): BP systolic 101–140; BP diastolic 49–84; PULSE 63–92; RESP 11–24; TEMP 35.6–36.9; O2SAT 88–100; BMI 49.8
[2022-01-20] MEDS: HYDROmorphone HCL INJ (*CRX) 1 MG/ML SYR IV PUSH ×2 (01:05→05:03)
[2022-01-20] MEDS: ONDANSETRON INJ 4 MG/2 ML VIAL IV PUSH ×5 (01:06→23:19)
[2022-01-20] MEDS: LACTATED RINGERS 1,000 ML 125 ML IV CONT (01:07)
--- NOTE | 2022-01-20 03:26 | ADMGEN ---
This patient, Josefa Costello, was admitted to 3 [facility] Surg Room 304-02. Patient/family oriented to hospital policies and general routines including ID bracelet, bed and alarms, visiting hours, pain management, procedures, bathroom and other care routines, personal items, smoking policy, room service/diet, and visiting hours. Information on how to activate the Rapid Response Team has been discussed. Patient/Family are encouraged to report perceived risks to care and to ask questions if they do not understand what they are told or what they should do.
[2022-01-20 06:45] LABS: Basophils Percent Auto 0.4 % (0.2-1.2); Eosinophils Absolute Auto 0.1 K/mm3 (0-0.3); Eosinophils Percent Auto 1.2 % (0-4.4); Hematocrit 34.3 % (37.0-47.0); Hemoglobin 10.9 g/dL (12.0-15.0); Immature Granulocyte Absolute 0.08 K/mm3 (0.00-0.031); Lymphocytes Absolute Auto 0.76 K/mm3 (0.9-3.2); Lymphocytes Percent Auto 9.9 % (18.3-44.2); Mean Corpuscular HGB Conc 31.8 g/dl (32-36); Mean Corpuscular Hemoglobin 28.2 pg (26-34); Mean Corpuscular Volume 88.9 fl (80-100); Mean Platelet Volume 10.3 fl (7.4-10.4); Monocytes Absolute Auto 0.5 K/mm3 (0.1-0.6); Monocytes Percent Auto 6.5 % (2.6-8.5); Neutrophils Absolute Auto 6.2 K/mm3 (1.3-6.7); Platelet Count Result 321 k/mm3 (150-375); Red Blood Count 3.86 M/mm3 (4.2-5.4); Red Cell Distribution Width 14.4 % (11.5-14.5); White Blood Count 7.7 K/mm3 (4.5-10.0)
[2022-01-20 06:57] LABS: Alanine Aminotransferase 17 U/L (6-35); Albumin Level 3.9 g/dL (3.5-5.1); Alkaline Phosphatase 83 U/L (38-126); Anion Gap 7 mmol/L (8-16); Aspartate Amino Transferase 20 U/L (14-36); Blood Urea Nitrogen 15 mg/dL (7-17); Calcium 8.3 mg/dL (8.4-10.2); Carbon Dioxide 26 mmol/L (22-30); Chloride 104 mmol/L (98-107); Estimated CRCL calculation 113 ml/min; Estimated Glomerular Filt Rate > 60; Glucose 97 mg/dL (65-110); Potassium 3.6 mmol/L (3.4-5.0); Sodium 137 mmol/L (137-145)
--- NOTE | 2022-01-20 07:17 | PM.IMHP ---
H&P: HPI History of Present Illness Date/Time: 01/20/22 07:17 Chief Complaint: Left flank pain Narrative: Patient well known to me with a long history of recurrent urolithiasis. She has been struggling with a small, 2-3 mm left proximal ureteral stone that is intermittently causing pain. She was in the ER last night with progressive pain and CT imaging that shows no progression of this small stone. She is admitted for hydration analgesics and we will make arrangements for endoscopic stone extraction. She is aware the risk of this procedure including, but not limited to, adverse cardiopulmonary events, urinary tract infection, ureteral injury, need for stent placement. Review of Systems Cardiovascular: Cardiovascular: Denies chest pain, Denies lightheadedness, Denies palpitations and Denies dyspnea Respiratory: Respiratory: Denies dyspnea Gastrointestinal: Gastrointestinal: Denies diarrhea, Denies nausea and Denies vomiting Genitourinary: Genitourinary: Denies hematuria and Denies dysuria Endocrine: Endocrine: Denies palpitations PMFSH Past Medical History Medical History Abdominal swelling Adenomatous colon polyp Anxiety Arthritis Atrial fib/flutter, transient BMI 45.0-49.9, adult Bronchitis Chondromalacia, patella Chronic GERD Claustrophobia COPD (chronic obstructive pulmonary disease) Dyspnea on exertion Ear pain Enlarged thoracic aorta Gastroparesis Hepatic steatosis History of anesthesia problem Kidney stones Lateral meniscus tear LLQ pain Morbid obesity Morbid obesity with BMI of 50.0-59.9, adult Nausea MILY (obstructive sleep apnea) MILY on CPAP Other intervertebral disc degeneration, lumbar region PCOS (polycystic ovarian syndrome) Pharyngitis Right knee pain SOB (shortness of breath) on exertion Vertigo Surgical History Surgical History H/O lithotripsy History of section 2006, 2007, 2014 History of partial hysterectomy Hx of cholecystectomy Hx of sinus surgery S/P panniculectomy Family History Family History Father Hypertension Family history of chronic obstructive pulmonary disease Family history of diabetes mellitus in first degree relative Acute myocardial infarction Cerebrovascular accident Family history of coronary artery disease Diabetes mellitus Tobacco abuse Mother Hypertension Family history of diabetes mellitus in first degree relative Diabetes mellitus Stage 4 chronic kidney disease Grandparent Cerebrovascular accident Sibling No problems noted. 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 [employer] Gender identity (if verbalized by the patient): Female Spiritual care concerns: No Meds Home Medications and Allergies Home Medications Medication Instructions Recorded Confirmed Type citalopram 40 mg tablet (Celexa) 40 mg PO DAILY 09/18/19 01/20/22 History metoprolol succinate 25 mg 25 mg PO DAILY 11/18/19 01/20/22 History tablet,extended release 24 hr aspirin 81 mg tablet,delayed 81 mg PO HS 01/09/20 01/20/22 History release fluticasone propionate 50 See Rx Instructions .Route 06/16/21 01/20/22 Rx mcg/actuation nasal .COMPLEX #48 mL spray,suspension albuterol sulfate 90 mcg/actuation 1 inh inhalation Q4H PRN shortness 06/28/21 01/20/22 Rx aerosol inhaler (ProAir HFA) of breath o
--- NOTE | 2022-01-20 07:19 | WPDHPUPDATE1 ---
History and Physical Update Update Date/Time: 01/20/22 07:19 History and Physical has been reviewed, including an updated exam of the patient. There are NO changes in the patient's condition. Risks, benefits, and alternatives have been discussed and questions answered. Patient agrees to proceed with procedure.
--- NOTE | 2022-01-20 12:45 | WPDANESEPPF ---
Anes - Initial Pre Proc Eval Procedure: Operation Date: 01/20/22 13:45 Proposed Procedures p Cystoscopy, Left Ureteroscopy, Possible Left Retrograde Pyelogram, Possible Left Stone Extraction, Possible Left Stent Placement, Possible Holmium Laser Procedure - Michael Fox MD Date/Time: 01/20/22 12:45 Surgeon: Michael Fox MD Pre Op Diagnosis: left proximal ureteral calculus,intractable pain Patient Data Age: 41 Gender: F Height: 1.65 m Weight: 136 kg Last Vital Signs Temp 36.1 C L 01/20/22 12:12 Pulse 72 01/20/22 12:12 Resp 18 01/20/22 12:12 BP 114/50 L 01/20/22 12:12 Pulse Ox 97 01/20/22 12:12 O2 Del Method Room Air 01/20/22 12:12 Allergies Allergy/AdvReac Type Severity Reaction Status Date / Time codeine Allergy Mild Headache Verified 01/20/22 12:32 Home Medications Medication Instructions Recorded Confirmed Type citalopram 40 mg tablet (Celexa) 40 mg PO DAILY 09/18/19 01/20/22 History metoprolol succinate 25 mg 25 mg PO DAILY 11/18/19 01/20/22 History tablet,extended release 24 hr aspirin 81 mg tablet,delayed 81 mg PO HS 01/09/20 01/20/22 History release fluticasone propionate 50 See Rx Instructions .Route 06/16/21 01/20/22 Rx mcg/actuation nasal .COMPLEX #48 mL spray,suspension albuterol sulfate 90 mcg/actuation 1 inh inhalation Q4H PRN shortness 06/28/21 01/20/22 Rx aerosol inhaler (ProAir HFA) of breath or wheezing #8.5 grams omeprazole 40 mg capsule,delayed 40 mg PO DAILY #30 caps 10/28/21 01/20/22 Rx release furosemide 20 mg tablet 20 mg PO QAM #30 tabs 12/23/21 01/20/22 Rx Laboratory Tests 01/19/22 01/19/22 01/19/22 20:10 20:10 20:35 WBC 10.7 K/mm3 H K/mm3 (4.5-10.0) RBC 4.28 M/mm3 M/mm3 (4.2-5.4) Hgb 12.2 g/dL g/dL (12.0-15.0) Hct 37.8 % % (37.0-47.0) MCV 88.3 fl fl (80-100) MCH 28.5 pg pg (26-34) MCHC 32.3 g/dl g/dl (32-36) RDW 14.3 % % (11.5-14.5) Plt Count 344 k/mm3 k/mm3 (150-375) MPV 10.1 fl fl (7.4-10.4) Immature Gran % (Auto) 0.7 % H % (0-0.5) Neut % (Auto) 88.2 % H % (45.5-73.1) Lymph % (Auto) 4.6 % L % (18.3-44.2) [place] % (Auto) 5.0 % % (2.6-8.5) Eos % (Auto) 1.2 % % (0-4.4) Baso % (Auto) 0.3 % % (0.2-1.2) Lymph # (Auto) 0.49 K/mm3 L K/mm3 (0.9-3.2) [place] # (Auto) 0.5 K/mm3 K/mm3 (0.1-0.6) Eos # (Auto) 0.1 K/mm3 K/mm3 (0-0.3) Baso # (Auto) 0.0 K/mm3 K/mm3 (0.0-0.1) Abs Immat Gran (auto) 0.08 K/mm3 H K/mm3 (0.00-0.031) Absolute Neuts (auto) 9.5 K/mm3 H K/mm3 (1.3-6.7) Absolute Nucleated RBC 0.0 K/mm3 K/mm3 (0.0-0.012) Nucleated RBC % 0.0 % % (0.0-0.2) Sodium 141 mmol/L mmol/L (137-145) Potassium 4.4 mmol/L mmol/L (3.4-5.0) Chloride 107 mmol/L mmol/L (98-107) Carbon Dioxide 26 mmol/L mmol/L (22-30) Anion Gap 8 mmol/L mmol/L (8-16) BUN 16 mg/dL mg/dL (7-17) Creatinine 1.00 mg/dL mg/dL (0.7-1.0) Estim Creat Clear Calc 91 ml/min ml/min Estimated GFR > 60 (59 - ) Glucose 105 mg/dL mg/dL (65-110) Calcium 9.1 mg/dL mg/dL (8.4-10.2) Total Bilirubin 0.8 mg/dL mg/dL (0.2-1.3) AST 23 U/L U/L (14-36) ALT 22 U/L U/L (6-35) Alkaline Phosphatase 106 U/L U/L (38-126) Total Protein 8.0 g/dL g/dL (6.3-8.2) Albumin 4.2 g/dL g/dL (3.5-5.1) Urine Color Yellow (Yellow) Urine Appearance Slightly cloudy (Clear) Urine pH 5.5 (5.0-9.0) Ur Specific [place] 1.025 (1.001-1.035) Urine Protein Negative mg/dL mg/dL (Negative) Urine Glucose (UA) Negative mg/dL mg/dL (Negative) Urine Ketones Negative m
[2022-01-20] MEDS: LACTATED RINGERS 1,000 ML 30 ML IV CONT (12:50)
[2022-01-20] MEDS: FAMOTIDINE 20 MG/2 ML VIAL IV PUSH (12:58)
[2022-01-20] MEDS: SCOPOLAMINE 1.5 MG PATCH TRANSDERM (12:58)
[2022-01-20] MEDS: diphenhydrAMINE HCl INJ 50 MG/ML VIAL 25 MG IV PUSH (12:58)
[2022-01-20] MEDS: LIDOCAINE HCL 2% GEL UROJET 10 ML PKG MUCOUS MEM (13:20)
[2022-01-20] MEDS: KETOROLAC 15 MG/ML VIAL (*BKC) IV PUSH (13:46)
--- NOTE | 2022-01-20 13:51 | W.PM.PROC2 ---
Procedure Note - Detailed Date of Procedure 01/20/22 Pre-op Diagnosis Left proximal ureteral calculus Post-op Diagnosis Same Procedure Performed Cystoscopy, left ureteroscopy and left ureteral stone extraction Surgeon Michael Fox MD Anesthesia General Description of Procedure Patient is brought to the operative suite where she was prepped and draped in routine sterile fashion while in a dorsal lithotomy position. After the uneventful induction of a general anesthetic a 19 F rigid cystoscope was placed in her bladder. She has no intravesical foreign body or neoplasm. Is a single orthotopic ureteral orifice bilaterally. A 0.035 in glidewire was advanced in the left renal pelvis. The distal ureter was dilated with an 8 F 10 F dilator and a 2nd 0.035 in glidewire was advanced into the pelvis. Flexible ureteroscopy was undertaken with a 7.5 F flexible ureteral scope. Her obstructing small proximal ureteral calculus is identified and extracted with a 1.9 F disposable stone basket with ease. I replaced the flexible ureteral scope and carefully inspected the entire collecting system and ureter. I can identify no additional stones as had been reported on her CT scan ( 2 mm nonobstructing stone). I removed the scope and wire. Because of ease of this manipulation I opted not to place ureteral stent. t\The patient was taken to the recovery room in good condition. Estimated Blood Loss 0 Pathology Yes Complications No immediate complications Condition Stable Disposition PACU
[2022-01-20] MEDS: fentaNYL CITRATE INJ (*CRX) 100 MCG/2 ML VIAL 25 MCG IV PUSH ×8 (14:37→15:16)
[2022-01-20] MEDS: HYDROmorphone HCL INJ (*CRX) 1 MG/ML SYR 0.5 MG IV PUSH ×3 (15:26→15:48)
[2022-01-20] MEDS: KETOROLAC 30 MG/ML VIAL (*BKC) IV PUSH (18:13)
[2022-01-20] MEDS: oxyCODONE HCL (*CRX) 5 MG TAB IR PO ×2 (18:46→23:07)
[2022-01-20] MEDS: ASPIRIN 81 MG ENTERIC TABLET PO (20:30)
[2022-01-20] MEDS: PANTOPRAZOLE 40 MG TABLET PO (20:30)
[2022-01-21 02:16] VITALS: PULSE 87; RESP 20; O2SAT 96
[2022-01-21 06:00] VITALS: BP 121/72; PULSE 69; RESP 20; TEMP 36.5; O2SAT 99
[2022-01-21] MEDS: FLUTICASONE PROPIONATE 0.05% NA SPR 16 GM BTL (*BKC) 2 SPRAY NASAL (08:34)
[2022-01-21] MEDS: FUROSEMIDE 20 MG TABLET PO (08:34)
[2022-01-21 08:35] VITALS: PULSE 70
[2022-01-21] MEDS: CITALOPRAM HYDROBROMIDE 20 MG TABLET 40 MG PO (08:35)
[2022-01-21] MEDS: METOPROLOL SUCCINATE EXT REL 25 MG TABCR PO (08:35)
[2022-01-21] MEDS: PANTOPRAZOLE 40 MG TABLET PO (08:36)
[2022-01-21] MEDS: KETOROLAC 30 MG/ML VIAL (*BKC) IV PUSH (08:44)
--- NOTE | 2022-01-21 09:09 | WPDANESPN ---
Anes - Prog Note Post-Op Date/Time: 01/21/22 09:09 Vital Signs: Last Vital Signs Temp 36.5 C 01/21/22 06:00 Pulse 70 01/21/22 08:35 Resp 20 01/21/22 06:00 BP 121/72 01/21/22 06:00 Pulse Ox 99 01/21/22 06:00 O2 Del Method Autopap 01/21/22 02:16 O2 Flow Rate 2 01/20/22 15:55 Pain Score (VAS): 0 I/O: Intake & Output 01/20/22 01/21/22 01/21/22 23:59 07:59 15:59 Intake Total 1320 100 Output Total 300 Balance 1020 100 Laboratory Tests 01/20/22 06:05 01/20/22 06:05 Patient Feedback: Patient satisfied with anesthetic care.
--- NOTE | 2022-01-21 10:47 | WPDUROPN2 ---
Progress Note: A&P Assessment and Plan (1) Ureteral stone: Code(s): N20.1 - Calculus of ureter Status: Acute Assessment and Plan: Resolving discomfort endoscopic stone extraction. As is typical past patient has a somewhat protracted endoscopic intervention. Continue supportive care for now with likely discharge this. Subjective Subjective Date/Time Seen: 01/21/22 10:47 Moderate left lower quadrant discomfort last evening, much improved this morning. No nausea vomiting. Review of Systems Cardiovascular: Cardiovascular: Denies chest pain, Denies lightheadedness, Denies palpitations and Denies dyspnea Respiratory: Respiratory: Denies dyspnea Gastrointestinal: Gastrointestinal: Denies diarrhea, Denies nausea and Denies vomiting Genitourinary: Genitourinary: Denies hematuria and Denies dysuria Endocrine: Endocrine: Denies palpitations Exam Const: General: no acute distress Resp: Effort & Inspection: normal respiratory effort GI: Inspection: non-distended GI Palp: No abdominal tenderness and No Guarding due to palpation present (GI) Auscultation: normal bowel sounds Objective Data Vital Signs Vital Signs: Vital Signs - 24 hr 01/20/22 12:12 01/20/22 13:59 01/20/22 14:10 Temperature 96.9 F L 98.5 F Pulse Rate 72 77 73 Respiratory Rate 18 16 18 Blood Pressure 114/50 L 101/54 L 110/51 L Pulse Oximetry 97 100 100 Oxygen Delivery Room Air Simple Face Mask Simple Face Mask Oxygen Flow Rate 6 6 01/20/22 14:19 01/20/22 14:25 01/20/22 14:40 Temperature Pulse Rate 72 69 Respiratory Rate 16 12 Blood Pressure 107/54 L 114/49 L Pulse Oximetry 98 93 94 Oxygen Delivery Room Air Room Air Room Air Oxygen Flow Rate 01/20/22 14:55 01/20/22 15:10 01/20/22 15:25 Temperature Pulse Rate 63 67 70 Respiratory Rate 11 L 12 12 Blood Pressure 111/61 107/50 L 108/65 Pulse Oximetry 94 95 96 Oxygen Delivery Nasal Cannula Nasal Cannula Nasal Cannula Oxygen Flow Rate 2 2 2 01/20/22 15:40 01/20/22 15:55 01/20/22 15:50 Temperature Pulse Rate 69 68 Respiratory Rate 12 16 Blood Pressure 121/66 107/60 Pulse Oximetry 96 95 88 L Oxygen Delivery Nasal Cannula Nasal Cannula Room Air Oxygen Flow Rate 2 2 01/20/22 16:30 01/20/22 21:21 01/20/22 22:00 Temperature 96.0 F L 97.6 F Pulse Rate 71 75 Respiratory Rate 18 18 Blood Pressure 140/84 126/68 Pulse Oximetry 100 96 97 Oxygen Delivery Room Air Oxygen Flow Rate 01/20/22 20:00 01/20/22 22:55 01/21/22 02:16 Temperature Pulse Rate 90 87 Respiratory Rate 24 H 20 Blood Pressure Pulse Oximetry 97 96 Oxygen Delivery Room Air Autopap Autopap Oxygen Flow Rate 01/21/22 06:00 01/21/22 08:35 Temperature 97.7 F Pulse Rate 69 70 Respiratory Rate 20 Blood Pressure 121/72 Pulse Oximetry 99 Oxygen Delivery Oxygen Flow Rate Intake/Output Intake/Output: Intake & Output 01/18/22 01/19/22 01/20/22 01/21/22 23:59 23:59 23:59 23:59 Intake Total 100 1520 100 Output Total 300 Balance 100 1220 100 Meds/Results Medications: Active Medications Generic Name Dose Route Start Last Admin Trade Name Freq PRN Reason Stop Dose Admin Albuterol 1 puff 01/20/22 16:05 Albuterol Sulfate (*Sp) Aerosol 1 Puff INHALATION Q4H PRN shortness of breath or wheezing Aspirin 81 mg 01/20/22 21:00 01/20/22 20:30 Aspirin 81 Mg Enteric Tablet PO 81 mg HS SIMA Administration Citalopram Hydrobromide 40 mg 01/21/22 09:00 01/21/22 08:35 Citalopram Hydrobromide 20 Mg Tablet PO 40 mg DAILY SIMA Administration Fluticasone Propionate 2 spray 01/21/22 09:00 01/21/22 08:34 Fluticasone Propionate 0.05% Na Spr 16 Gm Btl (*Bkc) NASAL 2 spray DAILY SIMA Administration Furosemide 20 mg 01/21/22 09:00 01/21/22 08:34 Furosemide 20 Mg Tablet PO 20 mg QAM SIMA Administration Acetaminophen 1,000 mg in 100 mls @ 400 mls/hr 01/20/22 18:00 01/21/22 05:51 O
[2022-01-21 14:00] VITALS: BP 112/60; PULSE 66; RESP 14; TEMP 36; O2SAT 98
--- NOTE | 2022-01-21 14:41 | PM.DS ---
DS: Admitting Diagnosis Discharge Date 01/21/2022 Admitting Diagnosis Left ureteral and left renal calculi DS: Discharge Diagnosis Discharge Diagnosis (1) Calculus of proximal left ureter: Code(s): N20.1 - Calculus of ureter Status: Acute DS: Summary Hospital Course Hospital Course: patient is well known to me with multiple recurrent stones in the past. She has been fighting with a 2 mm left proximal ureteral stone that just would blood in continue to intermittently cough pain that was progressively severe. Events of this prompted presentation the ER from which we admitted her for a short-term stay. She underwent endoscopic extraction of the 2 stone without stent placement. She had some mild postoperative pain admission overnight evening of the procedure. The following day her left flank and left lower quadrant pain slowly resolve. At discharge she was tolerating quite comfortable. Time Spent with Patient Time attestation: Total time spent providing and/or coordinating discharge services: Exam Const: General: no acute distress Resp: Effort & Inspection: normal respiratory effort GI: Inspection: non-distended GI Palp: No abdominal tenderness and No Guarding due to palpation present (GI) Auscultation: normal bowel sounds DS: Data Data Completed and Pending Pending studies at discharge: Pending at discharge 01/20/22 13:38 Surgical [PTH] Routine Labs on day of discharge: Preliminary micro results at discharge 01/19/22 20:35 Urine Culture - Preliminary Urine Clean Catch Gram negative bacilli isolated Discharge Plan Discharge Attending physician on discharge: Michael Fox Discharging Clinician: Michael Fox Patient Disposition: Home, Self-Care Activity: other - see discharge instructions Diet: other - see discharge instructions Discharge Instructions: 1) Activity: no driving or important decisions x24 hours. 2) Diet: resume your normal, pre-admission diet. 3) Follow-up: 2-3 weeks / call for appointment ([phone]). Patient Instructions: Antibiotic Form, Pain Management (GEN), Cystoscopy (GEN) Stand Alone Forms: General Discharge Information Follow-up/Referrals: Michael Fox MD [Physician] - Discharge Medications: New hydrocodone-acetaminophen 5-325 mg tablet 1 - 2 tablet PO Q6H PRN (Reason: pain) Qty: 24 0RF cephalexin 500 mg capsule 500 mg PO Q8H Qty: 9 0RF Continued citalopram [Celexa] 40 mg tablet 40 mg PO DAILY metoprolol succinate 25 mg tablet extended release 24 hr 25 mg PO DAILY omeprazole 40 mg capsule,delayed release(DR/EC) 40 mg PO DAILY Qty: 30 11RF fluticasone propionate 50 mcg/actuation spray,suspension See Rx Instructions .ROUTE .COMPLEX Qty: 48 0RF Dose Instruction: USE 2 SPRAYS IN EACH NOSTRIL ONCE DAILY Rx Instructions: USE 2 SPRAYS IN EACH NOSTRIL ONCE DAILY albuterol sulfate [ProAir HFA] 90 mcg/actuation HFA aerosol inhaler 1 inh inhalation Q4H PRN (Reason: shortness of breath or wheezing) Qty: 8.5 2RF furosemide 20 mg tablet 20 mg PO QAM Qty: 30 0RF cholestyramine (with sugar) 4 gram powder See Rx Instructions .ROUTE .COMPLEX Qty: 378 3RF Dose Instruction: TAKE 4 GRAMS BY MOUTH DAILY WITH MEAL. AVOID OTHER MEDS WITHIN 1HR BEFORE OR 4-6HR AFTER DOSE Rx Instructions: TAKE 4 GRAMS BY MOUTH DAILY WITH MEAL. AVOID OTHER MEDS WITHIN 1HR BEFORE OR 4-6HR AFTER DOSE Held aspirin 81 mg tablet,delayed release (DR/EC) 81 mg PO HS Hold Instructions: Resume on 01/23/22. Date of admission: 01/19/22 22:41 Primary Care Provider: Cuauhtemoc Zuluaga Admitting Provider: Michael Fox Attending physician on admission: Michael Fox Condition: Stable
== END 2022-01-21 15:30 | disposition home or self-care (01) ==
LOC: ANHED 22:40 → ANH3MEDSUR 01-20 01:42
PROVIDERS: Emergency Medicine; Admitting Provider Urology; Emergency Provider General Practice; PCP Family Medicine; Visit Provider Urology
PROC: (CPT 52352; principal; 2022-01-20 13:45)
DX: N20.1 Calculus of ureter (principal); G47.33 Obstructive sleep apnea (adult) (pediatric); J44.9 Chronic obstructive pulmonary disease, unspecified; F41.9 Anxiety disorder, unspecified; K21.9 Gastro-esophageal reflux disease without esophagitis; K76.0 Fatty (change of) liver, not elsewhere classified; E66.01 Morbid (severe) obesity due to excess calories; Z68.42 Body mass index [BMI] 45.0-49.9, adult; Z79.82 Long term (current) use of aspirin; Z79.51 Long term (current) use of inhaled steroids; Z20.822 Contact with and (suspected) exposure to COVID-19
CPT/HCPCS: 52352; 36415; 74018; 74176; 80053; 81001; 81025; 82365; 85025; 87077; 87086; 87186; 88300; 96365; 96367; 96375; 96376; 99285; A9270; C1769; C9803; G0378; J0131; J0696; J1100; J1170; J1200; J1885; J2250; J2405; J2704; J3010; J7120; U0003; U0005

== ENCOUNTER 2022-06-24 08:47 | Emergency (ER) | payer BC, SELFPAY ==
--- NOTE | ~2022-06-24 | CT_ITS ---
EXAMINATION: CT abdomen pelvis wo con DATE: 06/24/2022 09:30 INDICATION: Left flank pain. TECHNIQUE: Computed tomography (CT) of the abdomen and pelvis was performed without intravenous contr ast. Automated exposure control and iterative reconstruction technique were employed. The dose-length product was 1621.71 mGy-cm. COMPARISON: CT abdomen and pelvis 01/19/2022 FINDINGS: There is visualized portions of the lung bases demonstrate mild atelectasis on the left. No pleural effusion. The heart size is normal. No pericardial effusion. There is diffuse hepatic steato sis. There are changes of cholecystectomy. The spleen, pancreas, adrenal glands, and right kidney are normal. There is a 2 mm stone in left kidney. There are no dilated loops of bowel. The appendix is n ormal. There are no pathologically enlarged lymph nodes. There is no free intraperitoneal fluid. Ther e is mild thoracolumbar spondylosis. IMPRESSION: 1. 2 mm nonobstructing left kidney stone. 2. Diffuse hepatic steatosis. 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
[2022-06-24 08:52] VITALS: BP 137/68; PULSE 86; RESP 20; TEMP 36.2; O2SAT 99
[2022-06-24] MEDS: ONDANSETRON INJ 4 MG/2 ML VIAL IV PUSH (09:17)
[2022-06-24] MEDS: MORPHINE SULFATE (*CRX) 4 MG/ML INJ IV PUSH (09:17)
[2022-06-24 09:19] LABS: Basophils Percent Auto 0.5 % (0.2-1.2); Eosinophils Absolute Auto 0.2 K/mm3 (0-0.3); Eosinophils Percent Auto 2.1 % (0-4.4); Hematocrit 36.3 % (37.0-47.0); Hemoglobin 11.6 g/dL (12.0-15.0); Immature Granulocyte Absolute 0.15 K/mm3 (0.00-0.031); Immature Granulocyte Percent A 1.9 % (0-0.5); Lymphocytes Absolute Auto 1.52 K/mm3 (0.9-3.2); Lymphocytes Percent Auto 19.6 % (18.3-44.2); Mean Corpuscular Hemoglobin 28.6 pg (26-34); Mean Corpuscular Volume 89.4 fl (80-100); Mean Platelet Volume 9.5 fl (7.4-10.4); Monocytes Absolute Auto 0.4 K/mm3 (0.1-0.6); Monocytes Percent Auto 5.3 % (2.6-8.5); Neutrophils Absolute Auto 5.5 K/mm3 (1.3-6.7); Neutrophils Percent Auto 70.6 % (45.5-73.1); Platelet Count Result 278 k/mm3 (150-375); Red Blood Count 4.06 M/mm3 (4.2-5.4); Red Cell Distribution Width 14.5 % (11.5-14.5); White Blood Count 7.8 K/mm3 (4.5-10.0)
[2022-06-24 09:21] LABS: Appearance Urine Clear (Clear); Bilirubin Urine Negative (Negative); Blood Urine Negative (Negative); Color Urine Yellow (Yellow); Glucose Urine UA Negative (Negative); Ketones Urine Negative (Negative); Leukocyte Esterase Ur Negative LEU/UL (Negative); Nitrate Urine Negative (Negative); Protein Urine Negative (Negative); Urobilinogen Urine 0.2 mg/dL (<2.0)
--- NOTE | 2022-06-24 09:21 | ED.BACK ---
HPI - Back Pain/Injury General Chief Complaint: Back Pain/Injury Stated Complaint: back pain Time Seen by Provider: 06/24/22 08:50 History of Present Illness HPI Narrative: Pt is a 41 y/o female, presents to ED via POV with left flank pain, onset of symptoms yesterday. She endorses associated nausea, diaphoresis and pain that radiates from the flank into the left mid abdomen. She reports history of recurrent renal colic/obstructive uropathy for which she sees Dr Fox. She denies associated fevers or chills and she has no urinary burning, urgency or increased frequency. She does mention recently completing three separate rounds of abx therapy for recurrent/chronic sinusitis, last dose of abx was a few days ago. She took a left over dose of Zofran she had at home for nausea with some relief. She denies any other associated symptoms or modifying factors. She has no known sick contacts or COV concerns. Related Data Home Medications Medication Instructions Recorded Confirmed citalopram 40 mg tablet (Celexa) 40 mg PO DAILY 09/18/19 06/21/22 metoprolol succinate 25 mg 25 mg PO DAILY 11/18/19 06/21/22 tablet,extended release 24 hr aspirin 81 mg tablet,delayed 81 mg PO HS 01/09/20 06/21/22 release Allergies Allergy/AdvReac Type Severity Reaction Status Date / Time codeine Allergy Mild Headache Verified 06/21/22 08:01 Review of Systems Review of Systems: please refer to HPI Cardiovascular: Comments: denies CP, palpitation, syncope Respiratory: Comments: no SOB, cough, congestion Genitourinary: Comments: refer to HPI [facility] Past Medical History Medical History Abdominal swelling Adenomatous colon polyp Anxiety Arthritis Atrial fib/flutter, transient BMI 45.0-49.9, adult BMI 50.0-59.9, adult Bronchitis Chondromalacia, patella Chronic GERD Claustrophobia COPD (chronic obstructive pulmonary disease) Dyspnea on exertion Ear pain Enlarged thoracic aorta Gastroparesis Hepatic steatosis History of anesthesia problem Kidney stones Lateral meniscus tear LLQ pain Morbid obesity Morbid obesity with BMI of 50.0-59.9, adult Nausea MILY (obstructive sleep apnea) MILY on CPAP Other intervertebral disc degeneration, lumbar region PCOS (polycystic ovarian syndrome) Pharyngitis Right knee pain SOB (shortness of breath) on exertion Vertigo Surgical History Surgical History H/O lithotripsy History of section 2006, 2007, 2013 History of partial hysterectomy Hx of cholecystectomy Hx of sinus surgery S/P panniculectomy Family History Family History Father Hypertension Family history of chronic obstructive pulmonary disease Family history of diabetes mellitus in first degree relative Acute myocardial infarction Cerebrovascular accident Family history of coronary artery disease Diabetes mellitus Tobacco abuse Mother Hypertension Family history of diabetes mellitus in first degree relative Diabetes mellitus Stage 4 chronic kidney disease Grandparent Cerebrovascular accident Sibling No problems noted. 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
--- NOTE | 2022-06-24 09:27 | PC.NURSE ---
Patient off unit to CT.
[2022-06-24 09:28] LABS: Add Urine Microscopic? NO
[2022-06-24 09:33] LABS: Alanine Aminotransferase 30 U/L (6-35); Alkaline Phosphatase 104 U/L (38-126); Anion Gap 8 mmol/L (8-16); Aspartate Amino Transferase 24 U/L (14-36); Bilirubin,Total 0.4 mg/dL (0.2-1.3); Blood Urea Nitrogen 11 mg/dL (7-17); Calcium 8.5 mg/dL (8.4-10.2); Carbon Dioxide 27 mmol/L (22-30); Chloride 104 mmol/L (98-107); Estimated CRCL calculation 120 ml/min; Estimated Glomerular Filt Rate > 60; Glucose 130 mg/dL (65-110); Potassium 3.6 mmol/L (3.4-5.0); Sodium 139 mmol/L (137-145)
[2022-06-24] MEDS: KETOROLAC 15 MG/ML VIAL (*BKC) IV PUSH (10:12)
[2022-06-24] MEDS: methocarbamoL 750 MG TABLET 1500 MG PO (10:58)
[2022-06-24 12:05] VITALS: BP 120/50; PULSE 68; RESP 14; O2SAT 98
== END 2022-06-24 12:25 | disposition home or self-care (01) ==
PROVIDERS: Emergency Provider Nurse Practitioner Family; PCP Family Medicine
DX: R10.9 Unspecified abdominal pain (principal); J44.9 Chronic obstructive pulmonary disease, unspecified; E66.01 Morbid (severe) obesity due to excess calories; Z68.43 Body mass index [BMI] 50.0-59.9, adult; E28.2 Polycystic ovarian syndrome; K31.84 Gastroparesis; K21.9 Gastro-esophageal reflux disease without esophagitis; M19.90 Unspecified osteoarthritis, unspecified site; G47.33 Obstructive sleep apnea (adult) (pediatric); F41.9 Anxiety disorder, unspecified; Z86.010 Personal history of colon polyps; Z79.82 Long term (current) use of aspirin; Z90.711 Acquired absence of uterus with remaining cervical stump
CPT/HCPCS: 36415; 74176; 80053; 81003; 85025; 96374; 96375; 99284; A9270; J1885; J2270; J2405

== ENCOUNTER 2022-07-05 10:49 | Outpatient (CLI) | payer BC, SELFPAY ==
--- NOTE | ~2022-07-05 | CT_ITS ---
EXAMINATION: CT sinus wo con DATE: 07/05/2022 11:06 INDICATION: Chronic sinusitis TECHNIQUE: Computed tomography (CT) of the paranasal sinuses was performed without contrast. Iterativ e reconstruction technique was employed. Exam dose: 263.70 mGy-cm total exam DLP. COMPARISON: November 20, 2019 CT sinuses FINDINGS: Mild leftward bowing of nasal septum. Intralamellar cell of both middle nasal turbinates and opacified left middle nasal turbinate mali b ullosa. There is prominent soft tissue swelling of both inferior nasal turbinates. There is postoperative change from resection of both uncinate processes and bilateral partial ethmoid ectomies. The frontal sinuses, ethmoid air cells, maxillary sinuses and sphenoid sinuses are well aerated. The mastoid air cells are normally developed and aerated bilaterally. Middle and inner ear apparatus appear normal bilaterally. IMPRESSION: Surgical resection of the uncinate processes Intralamellar cell of both middle nasal turbinates and opacified left middle nasal turbinate mali b ullosa The paranasal sinuses and mastoid air cells are well-aerated Reviewed, dictated and finalized at Location A. 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
== END 2022-07-05 10:50 | disposition home or self-care (01) ==
PROVIDERS: PCP Family Medicine; Visit Provider Nurse Practitioner Family
DX: J32.9 Chronic sinusitis, unspecified (principal)
CPT/HCPCS: 70486

== ENCOUNTER 2022-08-17 19:33 | Emergency (ER) | payer BC, SELFPAY ==
--- NOTE | 2022-08-17 19:36 | ED.URI ---
HPI - URI/Sore Throat General Chief Complaint: Upper Respiratory Infection Stated Complaint: uri Time Seen by Provider: 08/17/22 19:36 Source: patient Mode of arrival: ambulatory Limitations: no limitations History of Present Illness HPI Narrative: Tonie is a 41-year-old female patient presenting to the clinic today with complaints of shortness of breath, dry cough, bilateral ear pain, headache, and congestion. She reports symptoms have been ongoing for a couple weeks. States that she has had around Keflex and this improved her symptoms shortly but then she got worse again. States that she is having slight chest discomfort with breathing. She denies any fever or chills currently. MD elicited complaint: sore throat and nasal congestion Related Data Home Medications Medication Instructions Recorded Confirmed citalopram 40 mg tablet (Celexa) 40 mg PO DAILY 09/18/19 08/17/22 metoprolol succinate 25 mg 25 mg PO DAILY 11/18/19 08/17/22 tablet,extended release 24 hr aspirin 81 mg tablet,delayed 81 mg PO HS 01/09/20 08/17/22 release Allergies Allergy/AdvReac Type Severity Reaction Status Date / Time codeine Allergy Mild Headache Verified 08/01/22 10:26 Review of Systems Review of Systems: Pertinent positives per HPI. Patient denies any fever, chills, rash, headache, visual changes, dizziness, cough, shortness of breath, chest pain, palpitations, nausea, vomiting, diarrhea, constipation, abdominal pain, or any urinary issues. [facility] Past Medical History Medical History Abdominal swelling Adenomatous colon polyp Anxiety Arthritis Atrial fib/flutter, transient BMI 45.0-49.9, adult BMI 50.0-59.9, adult Bronchitis Chondromalacia, patella Chronic GERD Claustrophobia COPD (chronic obstructive pulmonary disease) Dyspnea on exertion Ear pain Enlarged thoracic aorta Gastroparesis Hepatic steatosis History of anesthesia problem Kidney stones Lateral meniscus tear LLQ pain Morbid obesity Morbid obesity with BMI of 50.0-59.9, adult Nausea MILY (obstructive sleep apnea) MILY on CPAP Other intervertebral disc degeneration, lumbar region PCOS (polycystic ovarian syndrome) Pharyngitis Right knee pain SOB (shortness of breath) on exertion Vertigo Surgical History Surgical History H/O lithotripsy History of section 2006, 2007, 2014 History of partial hysterectomy Hx of cholecystectomy Hx of sinus surgery S/P panniculectomy Family History Family History Father Hypertension Family history of chronic obstructive pulmonary disease Family history of diabetes mellitus in first degree relative Acute myocardial infarction Cerebrovascular accident Family history of coronary artery disease Diabetes mellitus Tobacco abuse Mother Hypertension Family history of diabetes mellitus in first degree relative Diabetes mellitus Stage 4 chronic kidney disease Grandparent Cerebrovascular accident Sibling No problems noted. Other Arthritis Depression Family history of malignant neoplasm Family history of malignant neoplasm of urinary bladder HLD (hyperlipidemia) Heart disease Kidney disorder Social History Social History Smoking status: Former smoker Second hand tobacco smoke exposure: Yes Smoking end date: 08/21/12 Alcohol intake: never Substance use: never Substance use type: does not use Lack of Transportation: No Lack of Food: Never True Current Housing: I Have Housing Concerned About Future Housing: No Difficulty Paying Gas/Electric Bills: No Difficulty Paying for Meds: No Currently Unemployed: No Difficulty w/ Childcare or Family Care: No 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
[2022-08-17 19:42] VITALS: BP 149/87; PULSE 85; RESP 20; TEMP 36.4; O2SAT 99
[2022-08-17] MEDS: IPRATROPIUM BR 0.02% INH SOLN 0.5 MG/2.5 ML VIAL INHALATION (19:57)
[2022-08-17] MEDS: ALBUTEROL SULFATE NEB 2.5 MG/3 ML INH INHALATION (19:57)
[2022-08-17 19:58] VITALS: PULSE 74; RESP 22; O2SAT 98
[2022-08-17 20:21] VITALS: PULSE 76; RESP 20; O2SAT 98
== END 2022-08-17 20:24 | disposition home or self-care (01) ==
PROVIDERS: Emergency Provider Nurse Practitioner Family
DX: J32.9 Chronic sinusitis, unspecified (principal); J40 Bronchitis, not specified as acute or chronic; Z79.82 Long term (current) use of aspirin; K21.9 Gastro-esophageal reflux disease without esophagitis; J44.9 Chronic obstructive pulmonary disease, unspecified; E66.01 Morbid (severe) obesity due to excess calories; Z68.43 Body mass index [BMI] 50.0-59.9, adult; G47.33 Obstructive sleep apnea (adult) (pediatric); Z87.891 Personal history of nicotine dependence
CPT/HCPCS: 94640; 99213; G0463

== ENCOUNTER 2022-08-30 15:36 | Emergency (ER) | payer BC, SELFPAY ==
[2022-08-30] VITALS (13 sets, daily range): BP systolic 138–151; BP diastolic 75–88; PULSE 65–79; RESP 15–28; TEMP 36.4; O2SAT 95–100
--- NOTE | ~2022-08-30 | CT_ITS ---
EXAMINATION: CT abdomen pelvis w con DATE: 08/30/2022 19:22 INDICATION: epigastric pain TECHNIQUE: Computed tomography (CT) of the abdomen and pelvis was performed with 100 mL Omnipaque-350 intravenous contrast. Automated exposure control and iterative reconstruction technique were employe d. The dose-length product was 1591.05 mGy-cm. COMPARISON: 06/24/2022. FINDINGS: Lower thorax: Unremarkable Liver: Enlarged. Diffuse fatty infiltration. Biliary/Gallbladder: Gallbladder is absent. No bile duct dilation. Pancreas: No mass or duct dilation. Spleen: Normal. Adrenals:No mass. Kidneys: Punctate left midpole nonobstructing calculus. Bilateral simple cysts. No hydronephrosis. GI tract: No small or large bowel dilation. Normal appendix. Mesentery/Peritoneum: No ascites, mass, or free air. Retroperitoneum: No mass. Pelvis: Normal urinary bladder. Surgically absent uterus. Soft Tissues: Small uncomplicated fat-containing umbilical hernia Bones: No acute osseous finding. IMPRESSION: Hepatomegaly and steatosis. No acute abdominopelvic process detected. Reviewed, dictated and finalized at location K. 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
--- NOTE | ~2022-08-30 | XR_ITS ---
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 RESULT: Lines, tubes, and devices: None. Lungs and pleura: Clear. Cardiomediastinal silhouette: Stable. Other: No acute osseous or upper abdominal finding. IMPRESSION: No acute cardiopulmonary process. Reviewed, dictated and finalized at location K. WORKER
--- NOTE | ~2022-08-30 | US_ITS ---
EXAMINATION: US venous doppler LE RT DATE: 08/30/2022 18:57 INDICATION: erythema, pain . TECHNIQUE: Grayscale images without and with compression and Doppler images of the right lower extrem ity veins were obtained. COMPARISON: None FINDINGS: The right common femoral vein, profunda (deep) femoral vein, femoral vein, popliteal vein, peroneal v ein, posterior tibial veins, gastrocnemius vein, and greater saphenous vein are patent. IMPRESSION: 1. Patent right lower extremity veins. No evidence of deep venous thrombosis. Reviewed, dictated and finalized at location K. AN
--- NOTE | 2022-08-30 15:39 | ECG_ITS ---
Measurements Intervals [place] Rate: 67 P: 42 WI: 166 QRS: 12 QRSD: 92 T: 39 QT: 403 QTc: 427 Interpretive Statements SINUS RHYTHM DELAYED PRECORDIAL R/S TRANSITION LOW QRS VOLTAGE IN PRECORDIAL LEADS BORDERLINE ECG COMPARED TO ECG 09/03/2020 16:09:02 SINUS RHYTHM NOW PRESENT Electronically Signed On 08-31-2022 20:04:50 BLEACH MAKER by Jovanny Chambers D.O.
--- NOTE | 2022-08-30 17:18 | ED.GENADULT ---
HPI - General Adult General Chief complaint: Unspecified Stated complaint: R LEG REDNESS Time Seen by Provider: 08/30/22 17:06 Source: patient Mode of arrival: ambulatory Limitations: no limitations History of Present Illness HPI narrative: This is a 42-year-old female that presents to the emergency department for right lower extremity pain and redness. Ongoing since last night. Reports calf pain that is worse with ambulation. Reports she is recovering from bronchitis. She has finished a steroid and Augmentin for this. Does report some exertional shortness of breath. Reports she has also had burning epigastric pain today. She does have known history of reflux. She is not taken any medication for her pain. Reports some nausea and foul smelling urine. Denies fever, cough, vomiting, diarrhea, dysuria or hematuria. Related Data Home Medications Medication Instructions Recorded Confirmed citalopram 40 mg tablet (Celexa) 40 mg PO DAILY 09/18/19 08/17/22 metoprolol succinate 25 mg 25 mg PO DAILY 11/18/19 08/17/22 tablet,extended release 24 hr aspirin 81 mg tablet,delayed 81 mg PO HS 01/09/20 08/17/22 release Allergies Allergy/AdvReac Type Severity Reaction Status Date / Time codeine Allergy Mild Headache Verified 08/30/22 16:56 Review of Systems Review of Systems: CONSTITUTIONAL: Denies fever EYES: Denies redness, or discharge. ENT: Denies rhinorrhea, congestion, sore throat CARDIOVASCULAR: Reports chest pain. Denies edema. RESPIRATORY: Reports dyspnea. Denies cough GASTROINTESTINAL: Reports abdominal pain, nausea. Denies vomiting, or diarrhea. GENITOURINARY: Denies dysuria or hematuria. All systems reviewed & are unremarkable except as noted in HPI and below [facility] Past Medical History Medical History Abdominal swelling Adenomatous colon polyp Anxiety Arthritis Atrial fib/flutter, transient BMI 45.0-49.9, adult BMI 50.0-59.9, adult Bronchitis Chondromalacia, patella Chronic GERD Claustrophobia COPD (chronic obstructive pulmonary disease) Dyspnea on exertion Ear pain Enlarged thoracic aorta Gastroparesis Hepatic steatosis History of anesthesia problem Kidney stones Lateral meniscus tear LLQ pain Morbid obesity Morbid obesity with BMI of 50.0-59.9, adult Nausea MILY (obstructive sleep apnea) MILY on CPAP Other intervertebral disc degeneration, lumbar region PCOS (polycystic ovarian syndrome) Pharyngitis Right knee pain SOB (shortness of breath) on exertion Vertigo Surgical History Surgical History H/O lithotripsy History of section 2006, 2007, 2013 History of partial hysterectomy Hx of cholecystectomy Hx of sinus surgery S/P panniculectomy Family History Family History Father Hypertension Family history of chronic obstructive pulmonary disease Family history of diabetes mellitus in first degree relative Acute myocardial infarction Cerebrovascular accident Family history of coronary artery disease Diabetes mellitus Tobacco abuse Mother Hypertension Family history of diabetes mellitus in first degree relative Diabetes mellitus Stage 4 chronic kidney disease Grandparent Cerebrovascular accident Sibling No problems noted. Other Arthritis Depression Family history of malignant neoplasm Family history of malignant neoplasm of urinary bladder HLD (hyperlipidemia) Heart disease Kidney disorder Social History Social History Smoking status: Former smoker Second hand tobacco smoke exposure: Yes Smoking end date: 08/21/12 Alcohol intake: never Substance use: never Substance use type: does not use Lack of Transportation: No Lack of Food: Never True Current Housing: I Hav
[2022-08-30] MEDS: ONDANSETRON INJ 4 MG/2 ML VIAL IV PUSH (17:43)
[2022-08-30] MEDS: PANTOPRAZOLE SODIUM IV 40 MG VIAL IV PUSH (17:44)
[2022-08-30 17:46] LABS: Basophils Absolute Auto 0.1 K/mm3 (0.0-0.1); Basophils Percent Auto 0.5 % (0.2-1.2); Eosinophils Absolute Auto 0.2 K/mm3 (0-0.3); Eosinophils Percent Auto 2.3 % (0-4.4); Hematocrit 35.9 % (37.0-47.0); Hemoglobin 11.6 g/dL (12.0-15.0); Immature Granulocyte Absolute 0.25 K/mm3 (0.00-0.031); Immature Granulocyte Percent A 2.5 % (0-0.5); Lymphocytes Absolute Auto 2.05 K/mm3 (0.9-3.2); Lymphocytes Percent Auto 20.2 % (18.3-44.2); Mean Corpuscular HGB Conc 32.3 g/dl (32-36); Mean Corpuscular Hemoglobin 28.4 pg (26-34); Mean Platelet Volume 9.9 fl (7.4-10.4); Monocytes Absolute Auto 0.7 K/mm3 (0.1-0.6); Monocytes Percent Auto 6.7 % (2.6-8.5); Neutrophils Absolute Auto 6.9 K/mm3 (1.3-6.7); Neutrophils Percent Auto 67.8 % (45.5-73.1); Platelet Count Result 347 k/mm3 (150-375); Red Blood Count 4.08 M/mm3 (4.2-5.4); Red Cell Distribution Width 14.1 % (11.5-14.5); White Blood Count 10.2 K/mm3 (4.5-10.0)
[2022-08-30 17:54] LABS: Add Urine Microscopic? NO; Appearance Urine Clear (Clear); Bilirubin Urine Negative (Negative); Blood Urine Negative (Negative); Color Urine Yellow (Yellow); Glucose Urine UA Negative (Negative); Ketones Urine Negative (Negative); Leukocyte Esterase Ur Negative LEU/UL (Negative); Nitrate Urine Negative (Negative); Protein Urine Negative (Negative); Specific Grav Ur 1.025 (1.001-1.035); Urobilinogen Urine 0.2 mg/dL (<2.0)
[2022-08-30 18:03] LABS: Alanine Aminotransferase 39 U/L (6-35); Albumin Level 4.1 g/dL (3.5-5.1); Alkaline Phosphatase 94 U/L (38-126); Anion Gap 6 mmol/L (8-16); Aspartate Amino Transferase 34 U/L (14-36); Bilirubin,Total 0.7 mg/dL (0.2-1.3); Blood Urea Nitrogen 9 mg/dL (7-17); CRP 1.6 mg/dL (<1.0); Carbon Dioxide 27 mmol/L (22-30); Chloride 104 mmol/L (98-107); Estimated Glomerular Filt Rate > 60; Glucose 94 mg/dL (65-110); Lipase 59 U/L (23-300); Sodium 137 mmol/L (137-145)
[2022-08-30 18:06] LABS: Prothrombin Time 12.7 Seconds (11.1-14.7)
[2022-08-30 18:07] LABS: Partial Thromboplastin Time 25.7 SECONDS (22.3-36.8)
[2022-08-30 18:13] LABS: NT Pro B Type Natriuretic Pept 34 pg/mL (5-100); Troponin I < 0.012 ng/mL (0.000-0.034)
[2022-08-30 18:20] LABS: Erythrocyte Sedimentation Rate 63 mm/hr (0-20)
[2022-08-30 18:21] LABS: D Dimer 0.34 ug/mL (<0.48)
--- NOTE | 2022-08-30 20:19 | PC.NURSE ---
Informed Lucy DOBSON that pt is still having pain in her leg and that pt would like an update.
[2022-08-30 20:55] LABS: Troponin I < 0.012 ng/mL (0.000-0.034)
[2022-08-30] MEDS: diazePAM INJ (*CRX) 10 MG/2 ML SYRINGE 5 MG IV PUSH (21:03)
[2022-08-30] MEDS: KETOROLAC 15 MG/ML VIAL (*BKC) IV PUSH (21:04)
== END 2022-08-30 21:41 | disposition home or self-care (01) ==
PROVIDERS: Emergency Medicine; Emergency Provider Physician Assistant; PCP Family Medicine
DX: L03.115 Cellulitis of right lower limb (principal); K21.9 Gastro-esophageal reflux disease without esophagitis; R00.1 Bradycardia, unspecified; F41.9 Anxiety disorder, unspecified; M19.90 Unspecified osteoarthritis, unspecified site; J44.9 Chronic obstructive pulmonary disease, unspecified
CPT/HCPCS: 36415; 71045; 74177; 80053; 81003; 81025; 83690; 83880; 84484; 85025; 85380; 85610; 85652; 85730; 86140; 93005; 93971; 96374; 96375; 99284; C9113; J0131; J1885; J2405; J3360; Q9967

== ENCOUNTER 2022-09-18 15:51 | Emergency (ER) | payer BC, SELFPAY ==
--- NOTE | ~2022-09-18 | CT_ITS ---
EXAMINATION: CT abdomen pelvis wo con DATE: 09/18/2022 20:14 INDICATION: Left flank pain. Hematuria. TECHNIQUE: Computed tomography (CT) of the abdomen and pelvis was performed without intravenous contr ast. Automated exposure control and iterative reconstruction technique were employed. The dose-length product was 1556.89 mGy-cm. COMPARISON: CT abdomen and pelvis 08/30/2022 FINDINGS: The visualized portions of the lung bases are clear without pneumonia or pleural effusion. The heart size is normal. No pericardial effusion. There is diffuse hepatic steatosis. There are doyle ges of cholecystectomy. The spleen, pancreas, adrenal glands, and right kidney are normal. There is a 2 mm stone in left kidney. There are no dilated loops of bowel. There are no dilated loops of bowel. The appendix is normal. There are no pathologically enlarged lymph nodes. There is no free intraperi toneal fluid. There is mild thoracolumbar spondylosis. IMPRESSION: 1. 2 mm nonobstructing left kidney stone. 2. Diffuse hepatic steatosis. 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
[2022-09-18 16:04] VITALS: BP 151/76; PULSE 82; RESP 18; TEMP 36.7; O2SAT 98
[2022-09-18 16:24] LABS: Basophils Absolute Auto 0.1 K/mm3 (0.0-0.1); Basophils Percent Auto 0.6 % (0.2-1.2); Eosinophils Absolute Auto 0.2 K/mm3 (0-0.3); Hemoglobin 12.3 g/dL (12.0-15.0); Immature Granulocyte Absolute 0.11 K/mm3 (0.00-0.031); Immature Granulocyte Percent A 1.3 % (0-0.5); Lymphocytes Absolute Auto 1.67 K/mm3 (0.9-3.2); Mean Corpuscular HGB Conc 32.4 g/dl (32-36); Mean Corpuscular Hemoglobin 28.8 pg (26-34); Mean Platelet Volume 9.3 fl (7.4-10.4); Monocytes Absolute Auto 0.4 K/mm3 (0.1-0.6); Monocytes Percent Auto 4.6 % (2.6-8.5); Neutrophils Absolute Auto 6.4 K/mm3 (1.3-6.7); Neutrophils Percent Auto 72.5 % (45.5-73.1); Platelet Count Result 339 k/mm3 (150-375); Red Blood Count 4.27 M/mm3 (4.2-5.4); White Blood Count 8.8 K/mm3 (4.5-10.0)
[2022-09-18 16:25] LABS: Appearance Urine Slightly Cloudy (Clear); Bilirubin Urine Negative (Negative); Blood Urine Negative (Negative); Color Urine Yellow (Yellow); Glucose Urine UA Negative (Negative); Ketones Urine Negative (Negative); Leukocyte Esterase Ur Negative LEU/UL (Negative); Nitrate Urine Negative (Negative); Protein Urine Trace mg/dL (Negative); Urobilinogen Urine 0.2 mg/dL (<2.0)
[2022-09-18 16:32] LABS: Bacteria Urine Trace /hpf; Mucus Urine Rare /lpf; Squamous Epithelial Cell Urine Many /hpf (Few)
[2022-09-18 16:35] LABS: Add Urine Microscopic? YES
[2022-09-18 16:36] LABS: Potassium 3.8 mmol/L (3.4-5.0)
[2022-09-18 16:44] LABS: Alanine Aminotransferase 44 U/L (6-35); Alkaline Phosphatase 105 U/L (38-126); Anion Gap 5 mmol/L (8-16); Aspartate Amino Transferase 46 U/L (14-36); Bilirubin,Total 0.5 mg/dL (0.2-1.3); Blood Urea Nitrogen 14 mg/dL (7-17); Calcium 8.6 mg/dL (8.4-10.2); Carbon Dioxide 32 mmol/L (22-30); Chloride 100 mmol/L (98-107); Estimated CRCL calculation 110 ml/min; Estimated Glomerular Filt Rate > 60; Glucose 115 mg/dL (65-110); Sodium 137 mmol/L (137-145)
--- NOTE | 2022-09-18 20:04 | ED.GENADULT ---
HPI - General Adult General Chief complaint: Urogenital-Female Stated complaint: FREQUENT KIDNEY STONES Time Seen by Provider: 09/18/22 19:38 History of Present Illness HPI narrative: 42-year-old female with history of ureterolithiasis presenting the emergency department for evaluation of left flank pain that started on Monday. Patient states since Monday she has had increasing left flank pain with hematuria with subjective fever chills and nausea without vomiting. Patient does have a significant history of kidney stones and has followed up with Dr. Fox. Patient reports her last kidney stone was in December 2021 when she had to have a possible lithotripsy. Patient did have Zofran at home that she took and did help with her nausea. Patient also took [place] at home with some improvement of her pain control. Patient has history of kidney stones, high cholesterol, hypertension. Related Data Home Medications Medication Instructions Recorded Confirmed citalopram 40 mg tablet (Celexa) 40 mg PO DAILY 09/18/19 08/17/22 metoprolol succinate 25 mg 25 mg PO DAILY 11/18/19 08/17/22 tablet,extended release 24 hr aspirin 81 mg tablet,delayed 81 mg PO HS 01/09/20 08/17/22 release dupilumab 200 mg/1.14 mL 200 mg subcut ONCE 09/06/22 subcutaneous pen injector (DupixSimplesurance) Allergies Allergy/AdvReac Type Severity Reaction Status Date / Time codeine Allergy Mild Headache Verified 09/18/22 16:06 Review of Systems Review of Systems: CONSTITUTIONAL: Denies fever, chills, or sweats. EYES: Denies visual changes, redness, or discharge. ENT: Denies rhinorrhea, congestion, sore throat, or otalgia. CARDIOVASCULAR: Denies chest pain, palpitations, or edema. RESPIRATORY: Denies cough or dyspnea. GASTROINTESTINAL: See HPI GENITOURINARY: See HPI SKIN: Denies rash or itching. MUSCULOSKELETAL: Denies back pain, joint pain, or myalgia. NEUROLOGIC: Denies headache, numbness, or weakness. [facility] Past Medical History Medical History Abdominal swelling Adenomatous colon polyp Anxiety Arthritis Atrial fib/flutter, transient BMI 45.0-49.9, adult BMI 50.0-59.9, adult Bronchitis Chondromalacia, patella Chronic GERD Claustrophobia COPD (chronic obstructive pulmonary disease) Dyspnea on exertion Ear pain Enlarged thoracic aorta Gastroparesis Hepatic steatosis History of anesthesia problem Kidney stones Lateral meniscus tear LLQ pain Morbid obesity Morbid obesity with BMI of 50.0-59.9, adult Nausea MILY (obstructive sleep apnea) MILY on CPAP Other intervertebral disc degeneration, lumbar region PCOS (polycystic ovarian syndrome) Pharyngitis Right knee pain SOB (shortness of breath) on exertion Vertigo Surgical History Surgical History H/O lithotripsy History of section 2006, 2007, 2013 History of partial hysterectomy Hx of cholecystectomy Hx of sinus surgery S/P panniculectomy Family History Family History Father Hypertension Family history of chronic obstructive pulmonary disease Family history of diabetes mellitus in first degree relative Acute myocardial infarction Cerebrovascular accident Family history of coronary artery disease Diabetes mellitus Tobacco abuse Mother Hypertension Family history of diabetes mellitus in first degree relative Diabetes mellitus Stage 4 chronic kidney disease Grandparent Cerebrovascular accident Sibling No problems noted. Other Arthritis Depression Family history of malignant neoplasm Family history of malignant neoplasm of urinary bladder HLD (hyperlipidemia) Heart disease Kidney disorder Social History Social History Smoking status: Former smoker Second hand tobacco smoke exposure: Yes Smoking end d
[2022-09-18] MEDS: SODIUM CHLORIDE 0.9% IV 1,000 ML 999 ML IV CONT (20:38)
[2022-09-18] MEDS: HYDROmorphone HCL INJ (*CRX) 1 MG/ML SYR IV PUSH ×2 (20:39→21:20)
[2022-09-18] MEDS: ONDANSETRON INJ 4 MG/2 ML VIAL IV PUSH ×2 (20:39→22:32)
[2022-09-18] MEDS: TAMSULOSIN HCL 0.4 MG CAPSULE PO (21:20)
[2022-09-18 21:21] VITALS: BP 120/61; PULSE 76; RESP 16; O2SAT 96
[2022-09-18 22:35] VITALS: BP 124/72; PULSE 71; RESP 16; O2SAT 98
== END 2022-09-18 22:37 | disposition home or self-care (01) ==
PROVIDERS: Emergency Medicine; Emergency Provider Emergency Medicine; PCP Family Medicine
DX: N20.0 Calculus of kidney (principal); J44.9 Chronic obstructive pulmonary disease, unspecified; E28.2 Polycystic ovarian syndrome; K21.9 Gastro-esophageal reflux disease without esophagitis; G47.33 Obstructive sleep apnea (adult) (pediatric); K76.0 Fatty (change of) liver, not elsewhere classified; E66.01 Morbid (severe) obesity due to excess calories; Z68.43 Body mass index [BMI] 50.0-59.9, adult; Z90.711 Acquired absence of uterus with remaining cervical stump; Z87.442 Personal history of urinary calculi; Z86.010 Personal history of colon polyps; Z87.891 Personal history of nicotine dependence; Z79.82 Long term (current) use of aspirin
CPT/HCPCS: 36415; 74176; 80053; 81001; 85025; 96361; 96374; 96375; 96376; 99284; A9270; J1170; J2405; J7030

== ENCOUNTER 2022-10-12 16:04 | Outpatient (CLI) | payer BC, SELFPAY ==
--- NOTE | ~2022-10-12 | MR_ITS ---
EXAMINATION: MR lumbar spine wo/w con DATE: 10/12/2022 17:02 INDICATION: Worsening back pain TECHNIQUE: Magnetic resonance imaging (MRI) of the lumbar spine was performed without and with 20 mL Multihance intravenous contrast. Sequences included sagittal T2-weighted FSE, sagittal T2-weighted FS FSE, and sagittal and axial T1-weighted FSE. Postcontrast sequences included axial T2-weighted FSE, sagittal T1-weighted FSE, and axial and sagittal T1-weighted FS FSE. COMPARISON: None FINDINGS: Transitional L1 segment with very small right-sided riblet/unfused right-sided transverse process apo physeal center. 2 mm retrolisthesis L1 on L2 and L2 on L3 and 3 mm retrolisthesis L5 on S1. Minimal l ikely physiologic anterior wedging at T11-L1 Normal marrow signal. . Disc desiccation with mild disc height loss at L3-L4 and L5-S1 and minimal disc height loss at L2-L3. The conus medullaris terminate s at L1. There is normal signal with no abnormally enhancing lesions in the caudal spinal cord. Parav ertebral soft tissues are unremarkable. No abnormally enhancing lesions identified. The following dis c levels are specifically discussed: T12-L1: Very small left paracentral disc protrusion. There is mild to moderate left and mild right fa cet joint osteoarthritis. There is no neural foraminal stenosis. There is minimal central canal steno sis. L1-L2: Disc does not extend beyond the more posterior inferior endplate of L1. There is mild bilatera l facet joint osteoarthritis. There is no neural foraminal stenosis. There is mild central canal sten osis. L2-L3: This does not extend beyond the more posterior inferior endplate of L2. There is mild bilatera l facet joint osteoarthritis. There is mild bilateral neural foraminal stenosis. There is mild centra l canal stenosis. L3-L4: Disc is minimally bulging. There is mild bilateral facet joint osteoarthritis. There is mild r ight and minimal left neural foraminal stenosis. There is mild central canal stenosis. L4-L5: The disc does not extend beyond the endplate margin. There is mild bilateral facet joint osteo arthritis. There is minimal bilateral neural foraminal stenosis. There is no central canal stenosis. L5-S1: Disc is mildly bulging with small superimposed central disc extrusion with disc material exten ding up to 3 mm caudal to the level of the superior endplate of S1. There is mild bilateral facet adele nt osteoarthritis. There is mild bilateral neural foraminal stenosis. There is mild central canal theresa nosis. IMPRESSION: 1. Interval progression in previously minimal, now mild lumbar spondylosis. 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
== END 2022-10-12 16:05 | disposition home or self-care (01) ==
PROVIDERS: PCP Family Medicine; Visit Provider Nurse Practitioner Family
DX: M48.00 Spinal stenosis, site unspecified (principal); M47.896 Other spondylosis, lumbar region
CPT/HCPCS: 72158; A9577

== ENCOUNTER 2022-10-17 11:14 | Outpatient (CLI) | payer BC, SELFPAY ==
[2022-10-17 12:44] LABS: Basophils Absolute Auto 0.1 K/mm3 (0.0-0.1); Basophils Percent Auto 0.8 % (0.2-1.2); Eosinophils Absolute Auto 0.2 K/mm3 (0-0.3); Eosinophils Percent Auto 2.4 % (0-4.4); Hematocrit 36.1 % (37.0-47.0); Hemoglobin 11.4 g/dL (12.0-15.0); Immature Granulocyte Absolute 0.09 K/mm3 (0.00-0.031); Immature Granulocyte Percent A 1.1 % (0-0.5); Lymphocytes Absolute Auto 1.76 K/mm3 (0.9-3.2); Lymphocytes Percent Auto 22.2 % (18.3-44.2); Mean Corpuscular HGB Conc 31.6 g/dl (32-36); Mean Corpuscular Hemoglobin 27.9 pg (26-34); Mean Corpuscular Volume 88.5 fl (80-100); Mean Platelet Volume 10.1 fl (7.4-10.4); Monocytes Absolute Auto 0.5 K/mm3 (0.1-0.6); Monocytes Percent Auto 5.7 % (2.6-8.5); Neutrophils Absolute Auto 5.4 K/mm3 (1.3-6.7); Neutrophils Percent Auto 67.8 % (45.5-73.1); Platelet Count Result 348 k/mm3 (150-375); Red Blood Count 4.08 M/mm3 (4.2-5.4); Red Cell Distribution Width 14.4 % (11.5-14.5); White Blood Count 7.9 K/mm3 (4.5-10.0)
[2022-10-17 13:12] LABS: Anion Gap 7 mmol/L (8-16); Blood Urea Nitrogen 10 mg/dL (7-17); Calcium 9.1 mg/dL (8.4-10.2); Carbon Dioxide 26 mmol/L (22-30); Chloride 101 mmol/L (98-107); Estimated Glomerular Filt Rate > 60; Glucose 90 mg/dL (65-110); Sodium 134 mmol/L (137-145)
[2022-10-24 10:56] LABS: Testosterone Free 1.5 pg/mL (0.1-6.4); Testosterone Total 9 ng/dL (2-45)
[2022-10-26 17:27] LABS: Estrogen 412.4 pg/mL
== END 2022-10-17 11:15 | disposition home or self-care (01) ==
PROVIDERS: PCP Family Medicine; Visit Provider Physician Assistant Medical
DX: R51.9 Headache, unspecified (principal); R20.2 Paresthesia of skin; R41.3 Other amnesia
CPT/HCPCS: 36415; 80048; 82672; 84402; 84403; 84443; 85025

== ENCOUNTER 2022-11-03 15:41 | Outpatient (CLI) | payer BC, SELFPAY ==
--- NOTE | ~2022-11-03 | MR_ITS ---
EXAMINATION: MR brain/brain stem wo/w con DATE: 11/03/2022 16:28 INDICATION: Memory loss. Daily headache. TECHNIQUE: Magnetic resonance imaging (MRI) of the brain and brainstem was performed without and with 20 mL MultiHance intravenous contrast. COMPARISON: None. FINDINGS: There is no intracranial hemorrhage, acute infarction, or abnormal intracranial mass lesion . The ventricles are normal in size. The paranasal sinuses are clear. The orbits are normal. The mast oid air cells are normal. IMPRESSION: 1. Normal brain. 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 IMPRESSION: 1. Normal brain.
== END 2022-11-03 15:42 | disposition home or self-care (01) ==
PROVIDERS: PCP Family Medicine; Visit Provider Physician Assistant Medical
DX: R41.3 Other amnesia (principal); R20.2 Paresthesia of skin; R51.9 Headache, unspecified
CPT/HCPCS: 70553; A9577

== ENCOUNTER 2022-11-27 00:32 | Emergency (ER) | payer BC, SELFPAY ==
[2022-11-27] VITALS (11 sets, daily range): BP systolic 113–136; BP diastolic 53–84; PULSE 63–107; RESP 12–29; TEMP 36.7–37.2; O2SAT 95–99
--- NOTE | ~2022-11-27 | XR_ITS ---
XR chest 2V DATE: 11/27/2022 01:16 INDICATION: Shortness of breath TECHNIQUE: PA and lateral views COMPARISON: 08/30/2022 portable AP chest FINDINGS: Normal heart size. No hilar or mediastinal enlargement. No pulmonary infiltrate or consolidation, pleural effusion or pulmonary vascular congestion or pneumo thorax. Included skeletal structures appear unremarkable. IMPRESSION: No active cardiopulmonary disease Reviewed, dictated and finalized at location A.
--- NOTE | 2022-11-27 00:49 | ECG_ITS ---
Measurements Intervals [place] Rate: 93 P: 29 LA: 156 QRS: -7 QRSD: 95 T: 23 QT: 354 QTc: 441 Interpretive Statements SINUS RHYTHM LOW QRS VOLTAGE IN PRECORDIAL LEADS MINIMAL VOLTAGE CRITERIA FOR LVH, CONSIDER NORMAL VARIANT BORDERLINE ECG COMPARED TO ECG 08/30/2022 15:49:18 NO SIGNIFICANT CHANGES Electronically Signed On 11-27-2022 13:44:31 CDT by Socrates Arana M.D.
[2022-11-27 01:05] LABS: Basophils Percent Auto 0.6 % (0.2-1.2); Eosinophils Absolute Auto 0.1 K/mm3 (0-0.3); Eosinophils Percent Auto 1.4 % (0-4.4); Hematocrit 33.4 % (37.0-47.0); Hemoglobin 10.9 g/dL (12.0-15.0); Immature Granulocyte Absolute 0.16 K/mm3 (0.00-0.031); Immature Granulocyte Percent A 3.1 % (0-0.5); Lymphocytes Absolute Auto 0.68 K/mm3 (0.9-3.2); Lymphocytes Percent Auto 13.3 % (18.3-44.2); Mean Corpuscular HGB Conc 32.6 g/dl (32-36); Mean Corpuscular Hemoglobin 28.8 pg (26-34); Mean Corpuscular Volume 88.1 fl (80-100); Mean Platelet Volume 9.3 fl (7.4-10.4); Monocytes Absolute Auto 0.4 K/mm3 (0.1-0.6); Monocytes Percent Auto 7.2 % (2.6-8.5); Neutrophils Absolute Auto 3.8 K/mm3 (1.3-6.7); Neutrophils Percent Auto 74.4 % (45.5-73.1); Platelet Count Result 270 k/mm3 (150-375); Red Blood Count 3.79 M/mm3 (4.2-5.4); Red Cell Distribution Width 14.2 % (11.5-14.5); White Blood Count 5.1 K/mm3 (4.5-10.0)
--- NOTE | 2022-11-27 01:07 | ED.ASTHMA ---
HPI - Asthma General Chief Complaint: Asthma <CORBIN Salas Last Filed: 11/27/22 05:18> Stated Complaint: asthma <Sejal Mendoza PA-C - Last Filed: 11/27/22 05:18> Time Seen by Provider: 11/27/22 00:46 <Sejal Mendoza PA-C - Last Filed: 11/27/22 05:18> History of Present Illness HPI Narrative: 42-year-old female with a history of GERD, depression, MILY on CPAP reports for evaluation of dyspnea since 430 yesterday morning. She is complaining of nasal congestion and pleuritic chest pain that improves with leaning forward. Patient reports she wears a CPAP at night and had to take it off due to feeling suffocated. She is prescribed an inhaler for asthma like symptoms , however has not been formally diagnosed with asthma. States she has been taking her inhaler 2 puffs every 4 hours as prescribed without relief. She is also been taking Mucinex for nasal congestion and is complaining of a frontal headache that is gradual onset. Denies fever, body aches, chills, abdominal pain, nausea, vomiting, diarrhea. Denies lower extremity edema, calf pain. <CORBIN Salas Last Filed: 11/27/22 05:18> Related Data Home Medications: Home Medications Medication Instructions Recorded Confirmed citalopram 40 mg tablet (Celexa) 40 mg PO DAILY 09/18/19 11/03/22 metoprolol succinate 25 mg 25 mg PO DAILY 11/18/19 11/03/22 tablet,extended release 24 hr aspirin 81 mg tablet,delayed 81 mg PO HS 01/09/20 11/03/22 release <CORBIN Salas Last Filed: 11/27/22 05:18> Allergies/Adverse Reactions: Allergies Allergy/AdvReac Type Severity Reaction Status Date / Time codeine Allergy Mild Headache Verified 11/27/22 00:32 <CORBIN Salas Last Filed: 11/27/22 05:18> Review of Systems Review of Systems: CONSTITUTIONAL: Denies fever, chills EYES: Denies visual changes, redness, or discharge. ENT: See HPI CARDIOVASCULAR: See HPI. RESPIRATORY: See HPI GASTROINTESTINAL: Denies abdominal pain, nausea, vomiting, or diarrhea. GENITOURINARY: Denies dysuria or hematuria. SKIN: Denies rash or itching. MUSCULOSKELETAL: Denies back pain, joint pain, or myalgia. NEUROLOGIC: Denies headache, numbness, dizziness, or weakness. PSYCHIATRIC: Denies anxiety or depression. <Sejal Mendoza PA-C - Last Filed: 11/27/22 05:18> [facility] Past Medical History Medical History: Medical History Abdominal swelling Adenomatous colon polyp Anxiety Arthritis Atrial fib/flutter, transient BMI 45.0-49.9, adult BMI 50.0-59.9, adult Bronchitis Chondromalacia, patella Chronic GERD Claustrophobia COPD (chronic obstructive pulmonary disease) Dyspnea on exertion Ear pain Enlarged thoracic aorta Gastroparesis Hepatic steatosis History of anesthesia problem Kidney stones Lateral meniscus tear LLQ pain Morbid obesity Morbid obesity with BMI of 50.0-59.9, adult Nausea MILY (obstructive sleep apnea) MILY on CPAP Other intervertebral disc degeneration, lumbar region PCOS (polycystic ovarian syndrome) Pharyngitis Right knee pain SOB (shortness of breath) on exertion Vertigo <Sejal Mendoza PA-C - Last Filed: 11/27/22 05:18> Surgical History Surgical History: Surgical History H/O lithotripsy History of section 2006, 2007, 2014 History of partial hysterectomy Hx of cholecystectomy Hx of sinus surgery S/P panniculectomy <Sejal Mendoza PA-C - Last Filed: 11/27/22 05:18> Family History Family History: Family History Father Hypertension Family history of chronic obstructive pulmonary disease Family history of diabetes mellitus in first degree relative Acute myocardial infarction Cerebrovascular accident Family history of coronary artery disease Diabetes mellitus Tobacco abuse
[2022-11-27] MEDS: methylPREDNISolone SOD SUCC 125 MG VIAL IV PUSH (01:16)
[2022-11-27] MEDS: MAGNESIUM SULF 2 GM/WATER 50ML 2 GM/50 ML BAG IVPB (01:18)
[2022-11-27 01:20] LABS: Alanine Aminotransferase 33 U/L (6-35); Albumin Level 3.8 g/dL (3.5-5.1); Alkaline Phosphatase 97 U/L (38-126); Anion Gap 8 mmol/L (8-16); Aspartate Amino Transferase 38 U/L (14-36); Bilirubin,Total 0.6 mg/dL (0.2-1.3); Blood Urea Nitrogen 10 mg/dL (7-17); Calcium 8.7 mg/dL (8.4-10.2); Carbon Dioxide 25 mmol/L (22-30); Chloride 100 mmol/L (98-107); Estimated CRCL calculation 106 ml/min; Estimated Glomerular Filt Rate > 60; Glucose 127 mg/dL (65-110); Potassium 3.7 mmol/L (3.4-5.0); Sodium 133 mmol/L (137-145)
[2022-11-27] MEDS: ALBUTEROL SULFATE NEB 2.5 MG/3 ML INH 5 MG INHALATION (01:25)
[2022-11-27] MEDS: IPRATROPIUM BR 0.02% INH SOLN 0.5 MG/2.5 ML VIAL INHALATION (01:25)
[2022-11-27 01:45] LABS: Troponin I < 0.012 ng/mL (0.000-0.034)
--- NOTE | 2022-11-27 01:58 | PC.NURSE ---
Called lab to add on D-dimer, spoke with Aida
[2022-11-27] MEDS: KETOROLAC 15 MG/ML VIAL (*BKC) IV PUSH ×2 (02:05→04:35)
[2022-11-27] MEDS: PROCHLORPERAZINE EDISYLATE 10 MG/2 ML VIAL IV PUSH (02:07)
[2022-11-27] MEDS: diphenhydrAMINE HCl INJ 50 MG/ML VIAL 25 MG IV PUSH (02:09)
[2022-11-27 02:13] LABS: Influenza A QL RT-PCR Negative (Negative); Influenza B QL RT-PCR Negative (Negative); SARS-CoV-2 RNA PCR Positive
[2022-11-27 02:30] LABS: D Dimer 0.36 ug/mL (<0.48)
[2022-11-27 02:38] LABS: Appearance Urine Clear (Clear); Bacteria Urine None Seen /hpf; Bilirubin Urine Negative (Negative); Blood Urine Trace (Negative); Color Urine Yellow (Yellow); Glucose Urine UA Negative (Negative); Ketones Urine Negative (Negative); Leukocyte Esterase Ur Negative LEU/UL (Negative); Nitrate Urine Negative (Negative); Non Pathogenic Casts 0-2; Protein Urine Negative (Negative); RBC Urine 0-2 /hpf (0-2); Specific Grav Ur 1.015 (1.001-1.035); Squamous Epithelial Cell Urine None seen /hpf (Few); WBC Urine 0-5 /hpf
[2022-11-27 02:44] LABS: Add Urine Microscopic? YES
[2022-11-27] MEDS: SODIUM CHLORIDE 0.9% IV 1,000 ML 999 ML IV CONT (03:28)
[2022-11-27 04:28] LABS: Troponin I 0.019 ng/mL (0.000-0.034)
[2022-11-27] MEDS: ACETAMINOPHEN 500 MG TABLET 1000 MG PO (04:33)
[2022-11-27] MEDS: CYCLOBENZAPRINE HCL 10 MG TABLET PO (05:02)
[2022-11-27 07:28] LABS: Troponin I < 0.012 ng/mL (0.000-0.034)
== END 2022-11-27 09:04 | disposition home or self-care (01) ==
PROVIDERS: Emergency Medicine; Emergency Provider Physician Assistant; PCP Family Medicine
DX: U07.1 COVID-19 (principal); J45.909 Unspecified asthma, uncomplicated; G47.33 Obstructive sleep apnea (adult) (pediatric); E28.2 Polycystic ovarian syndrome; E66.01 Morbid (severe) obesity due to excess calories; Z68.43 Body mass index [BMI] 50.0-59.9, adult; K21.9 Gastro-esophageal reflux disease without esophagitis; M51.36 Other intervertebral disc degeneration, lumbar region; Z79.82 Long term (current) use of aspirin; Z79.891 Long term (current) use of opiate analgesic; Z79.51 Long term (current) use of inhaled steroids
CPT/HCPCS: 36415; 71046; 80053; 81001; 84484; 85025; 85380; 87636; 93005; 94640; 96361; 96365; 96375; 96376; 99284; A9270; J0780; J1200; J1885; J2930; J3475; J7030

== ENCOUNTER 2022-12-13 09:39 | Outpatient (CLI) | payer BC, SELFPAY ==
[2022-12-13 10:29] LABS: Hemoglobin A1C 5.3 % (<5.7)
== END 2022-12-13 09:40 | disposition home or self-care (01) ==
LOC: ANHLAB 09:40
PROVIDERS: PCP Family Medicine; Visit Provider Nurse Practitioner Family
DX: R73.09 Other abnormal glucose (principal)
CPT/HCPCS: 36415; 83036

== ENCOUNTER 2023-03-01 10:31 | Outpatient (CLI) | payer BC, SELFPAY ==
[2023-03-01 11:29] LABS: CRP 0.9 mg/dL (<1.0)
[2023-03-01 11:43] LABS: Erythrocyte Sedimentation Rate 35 mm/hr (0-20)
== END 2023-03-01 10:32 | disposition home or self-care (01) ==
LOC: ANHLAB 10:32
PROVIDERS: PCP Family Medicine; Visit Provider Nurse Practitioner Family
DX: R21 Rash and other nonspecific skin eruption (principal); M25.50 Pain in unspecified joint
CPT/HCPCS: 36415; 85652; 86038; 86140

== ENCOUNTER 2023-10-24 16:00 | Emergency (ER) | payer OTHER, SELFPAY ==
[2023-10-24 16:22] VITALS: BP 140/72; PULSE 68; RESP 18; TEMP 36.3; O2SAT 98
--- NOTE | 2023-10-24 17:04 | ED.URI ---
HPI - URI/Sore Throat General Chief Complaint: Upper Respiratory Infection Stated Complaint: sinus issue,sore throat Time Seen by Provider: 10/24/23 16:53 Source: patient, RN notes reviewed and old records reviewed Mode of arrival: ambulatory Limitations: no limitations History of Present Illness HPI Narrative: 43-year-old female to [facility] with complaint of sinus congestion, hoarseness, dry cough, headache, bilateral ear discomfort for 3 days. Patient has treated at home with SudafeRick ramíreznase with some improvement. Patient denies fever, chills, body aches, or GI complaints at this time. Patient denies allergies. Patient able to tolerate fluids by mouth. Related Data Home Medications Medication Instructions Recorded Confirmed citalopram 40 mg tablet (Celexa) 40 mg PO DAILY 09/18/19 10/24/23 tamsulosin 0.4 mg capsule (Flomax) 0.4 mg PO DAILY 12/13/22 10/24/23 Allergies Allergy/AdvReac Type Severity Reaction Status Date / Time codeine Allergy Mild Headache Verified 10/24/23 16:35 Review of Systems Review of Systems: All systems reviewed & are unremarkable except as noted in HPI and below Constitutional: Constitutional: Reports as per HPI, Reports no additional constitutional complaints, Denies fever(s) and Reports headache(s) Eyes: Eyes: Reports no additional eye complaints ENT: Reports system reviewed and no additional complaints, except as documented, Reports otalgia, Reports headache(s), Reports hoarseness, Reports nasal congestion, Reports sinus pressure and Reports sore throat Cardiovascular: Cardiovascular: Reports no additional cardiovascular complaints, Denies chest pain and Denies dyspnea Respiratory: Respiratory: Reports no additional respiratory complaints, Reports cough ( nonproductive) and Denies dyspnea Musculoskeletal: Musculoskeletal: Reports no additional musculoskeletal complaints Neurologic: Reports system reviewed and no additional complaints, except as documented Psychiatric: Psychiatric: Reports no additional psychiatric complaints PMFSH Past Medical History Medical History Abdominal swelling Adenomatous colon polyp Anxiety Arthritis Atrial fib/flutter, transient BMI 45.0-49.9, adult BMI 50.0-59.9, adult Bronchitis Chondromalacia, patella Chronic GERD Claustrophobia COPD (chronic obstructive pulmonary disease) Dyspnea on exertion Ear pain Enlarged thoracic aorta Gastroparesis Hepatic steatosis History of anesthesia problem Kidney stones Lateral meniscus tear LLQ pain Morbid obesity Morbid obesity with BMI of 50.0-59.9, adult Nausea MILY (obstructive sleep apnea) MILY on CPAP Other intervertebral disc degeneration, lumbar region PCOS (polycystic ovarian syndrome) Pharyngitis Right knee pain SOB (shortness of breath) on exertion Vertigo Surgical History Surgical History H/O lithotripsy History of section 2006, 2007, 2013 History of partial hysterectomy Hx of cholecystectomy Hx of sinus surgery S/P panniculectomy Family History Family History Father Hypertension Family history of chronic obstructive pulmonary disease Family history of diabetes mellitus in first degree relative Acute myocardial infarction Cerebrovascular accident Family history of coronary artery disease Diabetes mellitus Tobacco abuse Mother Hypertension Family history of diabetes mellitus in first degree relative Diabetes mellitus Stage 4 chronic kidney disease Grandparent Cerebrovascular accident Sibling No problems noted. Other Arthritis Depression Family history of malignant neoplasm Family history of malignant neoplasm of urinary bladder HLD (hyperlipidemia) Heart disease Kidney disorder Social History Social History (Reviewed 09/25/23 @ 15:29 by Cuauhtemoc Paredes
== END 2023-10-24 17:20 | disposition home or self-care (01) ==
PROVIDERS: Emergency Provider Nurse Practitioner Family; PCP Family Medicine
DX: J06.9 Acute upper respiratory infection, unspecified (principal); Z87.891 Personal history of nicotine dependence; M19.90 Unspecified osteoarthritis, unspecified site; I48.91 Unspecified atrial fibrillation; K21.9 Gastro-esophageal reflux disease without esophagitis; J44.9 Chronic obstructive pulmonary disease, unspecified; K76.0 Fatty (change of) liver, not elsewhere classified; E66.01 Morbid (severe) obesity due to excess calories; Z68.43 Body mass index [BMI] 50.0-59.9, adult; G47.33 Obstructive sleep apnea (adult) (pediatric); Z90.711 Acquired absence of uterus with remaining cervical stump; E28.2 Polycystic ovarian syndrome; K31.84 Gastroparesis; F41.9 Anxiety disorder, unspecified
CPT/HCPCS: 99211; G0463

== ENCOUNTER 2023-11-22 10:34 | Outpatient (CLI) | payer OTHER, SELFPAY ==
--- NOTE | ~2023-11-22 | XR_ITS ---
AP view of the pelvis and AP and lateral views of the bilateral hips Clinical history: Pain Findings: No acute fracture or dislocation is seen. Osseous alignment is anatomic. Bilateral hip and SI joint spaces are preserved. Soft tissues are unremarkable. Impression: No significant abnormality is seen. Reviewed, dictated and finalized at location . Impression: No significant abnormality is seen.
== END 2023-11-22 10:35 | disposition home or self-care (01) ==
PROVIDERS: PCP Family Medicine; Visit Provider Physician Assistant
DX: M25.551 Pain in right hip (principal); M25.552 Pain in left hip
CPT/HCPCS: 73521

== ENCOUNTER 2024-04-05 07:32 | Outpatient (CLI) | payer OTHER, SELFPAY ==
--- NOTE | ~2024-04-05 | XR_ITS ---
3 VIEWS LUMBAR SPINE Ordering provider: Alden Lehman, [place] History: . Poss coccyx fx or coccyx dislocation . Comparison: None. FINDINGS: VERTEBRAL BODIES:Possibility of subluxation coccygeal area is not excluded. No visible fracture or s ubluxation. Degenerative changes. DISK SPACES: Normal. Facet joint disease at the level of L4-L5 and L5-S1. SOFT TISSUES: Normal. IMPRESSION: No definite acute osseous abnormality lumbar spine. Possible subluxation coccygeal area is not excluded. 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
--- NOTE | ~2024-04-05 | XR_ITS ---
XR sacrum coccyx min 2V Ordering provider: Alden Lehman, DC History: . Poss coccyx fx or dislocation . Comparison: None. FINDINGS: BONES: Anterior displacement in the coccyx is highly suggestive. Fracture cannot be excluded. JOINTS: The sacroiliac joint spaces are normal. SOFT TISSUES: Soft tissues are normal. IMPRESSION: Possible subluxation in the coccyx. Fracture cannot be excluded. CT is advised. 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
== END 2024-04-05 07:33 ==
PROVIDERS: PCP Family Medicine; Visit Provider Chiropractor
DX: S33.2XXA Dislocation of sacroiliac and sacrococcygeal joint, initial encounter (principal)
CPT/HCPCS: 72110; 72220

== ENCOUNTER 2024-10-19 07:47 | Outpatient (CLI) | payer OTHER, SELFPAY ==
[2024-10-19 08:47] LABS: Basophils Absolute Auto 0.1 K/mm3 (0.0-0.1); Basophils Percent Auto 0.7 % (0.2-1.2); Eosinophils Absolute Auto 0.1 K/mm3 (0-0.3); Eosinophils Percent Auto 1.8 % (0-4.4); Hematocrit 36.3 % (37.0-47.0); Hemoglobin 11.4 g/dL (12.0-15.0); Immature Granulocyte Absolute 0.17 K/mm3 (0.00-0.031); Immature Granulocyte Percent A 2.2 % (0-0.5); Lymphocytes Absolute Auto 1.57 K/mm3 (0.9-3.2); Lymphocytes Percent Auto 20.5 % (18.3-44.2); Mean Corpuscular HGB Conc 31.4 g/dl (32-36); Mean Corpuscular Hemoglobin 28.1 pg (26-34); Mean Corpuscular Volume 89.4 fl (80-100); Mean Platelet Volume 10.2 fl (7.4-10.4); Monocytes Absolute Auto 0.5 K/mm3 (0.1-0.6); Monocytes Percent Auto 6.1 % (2.6-8.5); Neutrophils Absolute Auto 5.3 K/mm3 (1.3-6.7); Neutrophils Percent Auto 68.7 % (45.5-73.1); Platelet Count Result 289 k/mm3 (150-375); Red Blood Count 4.06 M/mm3 (4.2-5.4); Red Cell Distribution Width 14.2 % (11.5-14.5); White Blood Count 7.7 K/mm3 (4.5-10.0)
[2024-10-19 08:55] LABS: Alanine Aminotransferase 55 U/L (6-35); Albumin Level 3.9 g/dL (3.5-5.1); Alkaline Phosphatase 111 U/L (38-126); Anion Gap 9 mmol/L (4-12); Aspartate Amino Transferase 43 U/L (14-36); Bilirubin,Total 0.4 mg/dL (0.2-1.3); Blood Urea Nitrogen 16 mg/dL (7-17); Calcium 9.1 mg/dL (8.4-10.2); Carbon Dioxide 26 mmol/L (22-30); Chloride 105 mmol/L (98-107); Cholesterol 137 mg/dL (0-200); Estimated Glomerular Filt Rate > 60; Glucose 121 mg/dL (65-110); HDL Direct 28 mg/dL; Potassium 4.2 mmol/L (3.4-5.0); Sodium 140 mmol/L (137-145); Triglycerides 158 mg/dL (<150)
[2024-10-19 09:06] LABS: LDL Cholesterol Direct 85 mg/dL
[2024-10-19 11:47] LABS: Cortisol Random 0.85 ug/dL
[2024-10-19 11:49] LABS: Hemoglobin A1C 5.6 % (<5.7)
[2024-10-20 08:04] LABS: Insulin Level Total 128.6 uIU/mL
[2024-10-23 17:14] LABS: Progesterone <0.5 ng/mL
[2024-10-23 19:24] LABS: DHEA-Sulfate 5 mcg/dL (15-205); LH 1.9 mIU/mL
== END 2024-10-19 07:48 | disposition home or self-care (01) ==
PROVIDERS: PCP Family Medicine
DX: E28.2 Polycystic ovarian syndrome (principal); E88.810 Metabolic syndrome; E66.01 Morbid (severe) obesity due to excess calories; Z13.220 Encounter for screening for lipoid disorders; Z13.29 Encounter for screening for other suspected endocrine disorder; Z13.0 Encounter for screening for diseases of the blood and blood-forming organs and certain disorders involving the immune mechanism
CPT/HCPCS: 36415; 80053; 80061; 82024; 82533; 82627; 82670; 83001; 83002; 83036; 83525; 84144; 84443; 85025

== ENCOUNTER 2025-01-16 07:12 | Outpatient (CLI) | payer OTHER, SELFPAY ==
--- NOTE | ~2025-01-16 | MM_ITS ---
EXAMINATION: MM screening oanh BI w eliza HISTORY: Screening TECHNIQUE: Craniocaudal and mediolateral oblique 3-D tomosynthesis images were obtained and synthetic 2-D images were generated. CAD analysis was submitted and interpreted. COMPARISON: No prior mammogram is available for comparison at this institution. BREAST PARENCHYMAL COMPOSITION: Not dense: There are scattered areas of fibroglandular density. FINDINGS: There is no evidence of suspicious mass, calcification, or architectural distortion to sugg est malignancy in either breast. There has been no suspicious interval change. IMPRESSION: 1. No mammographic evidence of malignancy. 2. Recommend routine screening mammography in one year. BI-RADS Category 1: Negative Reviewed, dictated and finalized at location A.
--- OUTSIDE RECORDS SUMMARY | 2025-01-16 07:18 | XMS_ITS | Encounter Summary ---
Author Organization [facility] Address [address] [address] Care Team Providers Care Field Superintendent Name Role Phone Cuauhtemoc Zuluaga MD Primary Care Provider [phone] Encounter Details Date Type Department Care Team (Late st Contact Info) Description 03/30/2020 Lab Requisition [facility] Derm[facility] Lab [address] [place] [address] Shonna York DO [address] [facility] [address] [place] [address] Social History Tobacco Use Types Packs/Day Years Used Date Smoking Tobacco: Never Assessed Comments Unknown Sex and Gender Information Value Date Recorded Sex Assigned at Not on file 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 Gender Identity Not on file Sexual Orientation Not on file documented as of this encounter Plan of Treatment Not on file documented as of this encounter Procedures Procedure Name Priority Date/Time Associated Diagnosis Comments DERMATOPATHOLOGY Routine 03/26/2020 12:0 0 AM CDT documented in this encounter Results * DERMATOPATHOLOGY (03/26/2020 12:00 AM CDT) Case Report Dermatopathology Report Case: [id number] Authorizing Provider: Shonna York DO Collected: 03/26/2020 12:00 AM Ordering Location: [facility] Derm[facility] Lab Received: 03/30/2020 12:05 PM Pathologist: Tianna Crawford MD Specimen: Skin, mid back 0 12:20 PM CDT DERMATOPATHOLOGY LABORATORY Final Diagnosis Specimen A. SKIN, mid back: DERMAL SCAR RESIDUAL MELANOCYTIC PROLIFERATION NOT IDENTIFIED (L90.5) 0 12:20 PM CDT DERMATOPATHOLOGY LABORATORY at 1220 CDT Clinical History R/O junctional melanocytic proliferation, biopsy proven 0 12:20 PM CDT DERMATOPATHOLOGY LABORATORY Gross Description Specimen A: Received is one formalin filled container labeled with the patient's name and designated mid back.The specimen consists of an ellipse measuring [id number] mm and is oriented with the suture/notch at the 12 o'clock position notlabeled on the requisition. The 12 to 6 o'clock margin is inked green. The 6 o'clock to 12 o'clock margin is inked black. The 12 o'clock tip is submitted in cassette 1. The 6 o'clock tip is submitted in cassette 2. The remainder of the ellipse is serially sectioned and submitted in cassettes 3-5. Jar 0. 0 12:20 PM CDT DERMATOPATHOLOGY LABORATORY Microscopic Description Specimen A. SKIN, mid back: There are fibroblasts and collagen bundles oriented parallel to the skin surface. There are elongated blood vessels, some of which are oriented perpendicular to the skin surface. No residual melanocytic proliferation is identified. 0 12:20 PM CDT DERMATOPATHOLOGY LABORATORY Disclaimer An external and internal positive and negative controls are appropriate for the histochemical, immunohistochemical and immunofluorescence stain(s) in this case (if any), except where stated explicitly. The performance characteristics of the stain(s) cited in this report were developed and its performance characteristic determined by the Dermatopathology Laboratory at [facility], directed by Dr. Curt Crawford. These tests need not be, and therefore are not, approved by the [place] Food and Drug Administration. The tests are used for clinical purposes. Billing Codes Specimen Charges Stain Charges 69350 1 0 12:20 PM CDT DERMATOPATHOLOGY LABORATORY Embedded Images 0 12:20 PM CDT DERMATOPATHOLOGY LABORATORY Pathology/Cytolog y TISSUE SPECIMEN FROM SKIN / Unknown 03/26/2020 03/30/2020 12:05 PM CDT us Shonna York DO LAB - PATHOLOGY/CYTOLOGY ORDERABLES Final Result DERMATOPATHOLOGY LABORATORY [facility] - Department of Dermatology [facility]/[address] [phone] documented in this encounter Visit Diagnoses Not on filedocumented in this encounter Care Teams Field Superintendent Relationship Specialty Start Date End Date Cuauhtemoc Zuluaga MD [address] [place] [address] PCP - General 12/26/17 documented as of this encounter
--- OUTSIDE RECORDS SUMMARY | 2025-01-16 07:18 | XMS_ITS | Clinical Summary ---
Author Organization [facility] Address [address] [place] [address] Care Team Providers Care Automotive Professional Name Role Phone Cuauhtemoc Zuluaga MD Primary Care Provider [phone] Source Comments [facility]iliates and Associated Physician Practices is amultiple site organization consisting of ambulatory clinics and hospital sitesin [place], [place], [place] and [place]. This disclosure is being madepursuant to the Care Everywhere program and may not contain all information available regarding this patient. 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 Gender Identity Not on file Sexual Orientation Not on file Last Filed Vital Signs Vital Sign Reading Time Taken Comments Blood Pressure 130/90 11/23/2017 2:33 PM CDT Pulse 96 11/23/2017 2:33 PM CDT Temperature 36.2 C (97.2 F) 11/23/2017 2:33 PM CDT Respiratory Rate - - Oxygen Saturation 96% 11/23/2017 2:33 PM CDT Inhaled Oxygen Concentration - - Weight 140.4 kg (309 lb 9.6 oz) 11/23/2017 2:33 PM CDT Height 166.4 cm (5' 5.5) 11/23/2017 2:33 PM CDT Body Mass Index 50.74 11/23/2017 2:33 PM CDT Plan of Treatment Health Maintenance Due Date Last Done Comments LIPID TESTING 1980 MAMMOGRAM 1980 HIV SCREENING 1995 HEPATITIS C SCREENING 08/15/1998 DTAP/TDAP/TD VACCINES (1 - Tdap) 1999 HEPATITIS B VACCINE (1 of 3 - 19+ 3-dose series) 1999 COVID-19 VACCINE (1 - 2023-2 5 season) 2024 DEPRESSION SCREENING 08/21/2024 INFLUENZA VACCINE (Season Ended) 2025 ZOSTER VACCINE (1 of 2) 2030 HIB VACCINE Aged Out No longer eligi ble based on patient's age to complete this topic HPV VACCINE Aged Out No longer eligi ble based on patient's age to complete this topic MENINGOCOCCAL (Group B) VACC INE SHARED DECISION-MAKING Aged Out No longer eligibl e based on patient's age to complete this topic MENINGOCOCCAL GROUPS A/C/Y/W VACCINE Aged Out No longer eligible b ased on patient's age to complete this topic PNEUMOCOCCAL VACCINE Aged Out No long er eligible based on patient's age to complete this topic Insurance [facility] Care Teams Automotive Professional Relationship Specialty Start Date End Date Cuauhtemoc Zuluaga MD [address] [place] [address] PCP - General 12/26/17
--- OUTSIDE RECORDS SUMMARY | 2025-01-16 07:18 | XMS_ITS | Clinical Summary ---
Author Organization [facility] Address [address], [address] [address] Phone Care Team Providers Care Sports Clerk Name Role Phone Cuauhtmeoc Zuluaga MD Primary Care Provider [phone] Vee Dahl APRN, ERECTING CRANE OPERATOR Unavailable Allergies Active Allergy Reactions Criticality Noted Date Comments Codeine Other (see Comments) 03/09/2016 Severe headache Medications PROAIR HFA 108 (90 BASE) MCG/ACT Aerosol Solution take 1-2 Puffs by inhalation every 4 hours as needed. 2 11/23/19 16 Active buPROPion (WELLBUTRIN) 150 MG XL tablet Take 150 mg by mouth daily. 1 03/03/20 16 Active citalopram (CELEXA) 40 MG Tablet Take 40 mg by mouth daily. 3 01/10/20 16 Active clobetasol (TEMOVATE) 0.05 % Ointment 0 01/20/20 16 Active fluticasone (FLONASE) 50 MCG/ACT Suspension 1-2 Sprays by Nasal route daily. 0 12/31/19 16 Active ondansetron (ZOFRAN) 8 MG Tablet 0 12/24/19 16 Active dicyclomine (BENTYL) 20 MG Tablet Take 1 Tab by mouth every 6 hours as needed. 40 Tab 1 03/09/20 16 Active hydrocortisone (ANUSOL-HC) 2.5 % Cream Apply daily. Apply to rectum as directed. 1 Tube 0 03/09/20 16 Active hydrocortisone (ANUSOL-HC) 25 MG Suppository 25 mg by Rectal route every 12 hours. 60 Suppository 0 03/09/20 16 Active polyethylene glycol (MIRALAX) Powder Mix the entire bottle with 64 oz of a clear liquid. Use as directed by the office for colonoscopy prep. 255 g 0 03/09/20 16 Active prochlorperazin e (COMPAZINE) 10 MG Tablet Take 10 mg by mouth every 6 hours as needed. Active other 250 mg by Other route daily. BREVAIL (herbal supplement0 Active hyoscyamine (LEVSIN) 0.125 MG Tablet Take 1 Tab by mouth every 4 hours as needed for Cramping. 60 Tab 3 07/21/20 16 Active metroNIDAZOLE (FLAGYL) 500 MG Tablet Take 1 Tab by mouth 3 times daily. 30 Tab 0 07/21/20 16 Active omeprazole (PRILOSEC) 40 MG CAPSULE DELAYED RELEASE TAKE 1 CAPSULE BY MOUTH EVERY DAY 90 Cap 3 05/21/20 19 Active Active Problems Problem Noted Date Diagnosed Date Gastroesophageal reflux disease 03/09/2016 Family History Medical History Relation Name Comments Diabetes Father Heart Disease Father Hypertension Father Kidney Disease Father Prostate Cancer Father Diabetes Mother Stroke Mother Relation Name Status Comments Father Alive Mother Alive Social History Tobacco Use Types Packs/Day Years Used Date Smoking Tobacco: Former Cigarettes 0.5 13 0 05/10/2000 - 05/10/2013 Smokeless Tobacco: Never Comments:quit 2012 Alcohol Use Standard Drinks/Week Comments Yes 0 (1 standard drink = 0.6 oz pur e alcohol) glass of wine occasionally Comments No Sex and Gender Information Value Date Recorded Sex Assigned at Not on file Legal Sex Female 8:47 AM CDT Gender Identity Not on file Sexual Orientation Not on file 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 Not on file Not on file Not on file Last Filed Vital Signs Vital Sign Reading Time Taken Comments Blood Pressure 124/80 07/21/2016 2:40 PM KELP CUTTER Pulse 92 07/21/2016 2:40 PM KELP CUTTER Temperature 37.2 C (99 F) 07/21/2016 2:40 PM KELP CUTTER Respiratory Rate 16 07/21/2016 2:40 PM KELP CUTTER Oxygen Saturation 93% 07/21/2016 2:40 PM KELP CUTTER Inhaled Oxygen Concentration - - Weight 129.3 kg (285 lb) 07/21/2016 2:40 PM KELP CUTTER Height 165.1 cm (5' 5) 07/21/2016 2:40 PM KELP CUTTER Body Mass Index 47.43 07/21/2016 2:40 PM KELP CUTTER Plan of Treatment Health Maintenance Due Date Last Done Comments Hepatitis C Virus (HCV) Screening 1980 TdaP Immunization 1980 Hepatitis B Immunization (1 of 3 - 19+ 3-dose series) 1999 Discussion re Starting/Frequ ency of Mammograms 2020 Influenza Immunization (#1) 2024 SARS-COV-2 Immunization ( - season) 2024 Respiratory Syncytial Virus (RSV) Immunization (Adult) (1 - 1-dose 75+ series) 2055 Meningococcal Immunization (ACWY) Aged Out No longer eligible based on patient's age to complete this topic Pneumococcal Immunization Combined Aged Out No longer eligible based on patient's age to complete this topic Rotavirus Immunization Aged Out No lo nger eligible based on patient's age to complete this topic Care Teams Sports Clerk Relationship Specialty Start Date End Date Cuauhtemoc Zuluaga MD [address] [address] PCP - General Family Medicine 02/12/16 Vee Dahl APRN, ERECTING CRANE OPERATOR [address] [address] Nurse Practitioner Advanced Practice Nurse 03/09/16
--- OUTSIDE RECORDS SUMMARY | 2025-01-16 07:18 | XMS_ITS | Patient Health Record ---
Author Organization [employer] Address [address] [place] [address] Care Team Providers Care Dermatology Physician Assistant Name Role Phone Margareth LANDRUM, Cuauhtemoc Primary Care Provider Edwardoa Reilly Su Unavailable [phone] Reason For Referral No Information Medications Medication SIG (Take, Route, Frequency, Duration) Notes Start Date End Date Status Citalopram Hydrobromide Active Cyclobenzaprine HCl Active Omeprazole 40 MG 1 capsule Orally Once a day Active OTC/Vitamins Flonase, Vitamin D3, Estrogen, Super B complex Active ProAir HFA Active Atorvastatin Calcium Active Est Estrogens-Methyltest HS Active Tamsulosin HCl Activ e Immunizations Vaccine Route Administration Date Status Comme nts Influenza Vaccination Unknown 05/22/2017 Administered Social History Tobacco Use: Social History Observation Description Date Details (start date - stop date) Never Smoker NA - NA Tobacco Use/Smoking Question Answer Notes Are you a nonsmoker Problems Problem Type SNOMED Code ICD Code Onset Dates Problem Status W/U Status Risk Notes Problem [id number] Heartburn (R12) Active confirmed Problem 653318554 Fatty liver (K76.0) Active confirmed Plan Of Treatment No Information Insurance Providers Payer Name Payer Address Payer Phone Subscriber Number Group Number Insured Name Patient Relationship to Insured Coverage Start Date Coverage End Date Blue Access PPO E2 [address] [place] [address] [id number] Josefa Costello Self - patient is the insured Medical (General) History Medical History History ICD Code Liver disease GERD Surgical History Surgery Date(Month/Year) Colononscopy 2015 Laproscopic procedure for endometriosis Ovarian cyst Cholecystectomy Sinus surgery Lithotripsy Partial hysterectomy Left oophorectomy
--- OUTSIDE RECORDS SUMMARY | 2025-01-16 07:18 | XMS_ITS | Encounter Summary ---
Author Organization [facility] Address [address] [place] [address] Care Team Providers Care Burn Out Tender Lace Name Role Phone Cuauhtemoc Zuluaag MD Primary Care Provider [phone] Encounter Details Date Type Department Care Team (Late st Contact Info) Description 02/03/2020 Lab Requisition [facility] [address] [facility], [place] [address] Shonna York DO [address] [facility] 3 [place] [address] Social History Tobacco Use Types Packs/Day Years Used Date Smoking Tobacco: Never Assessed Comments Unknown Sex and Gender Information Value Date Recorded Sex Assigned at Not on file Legal Sex Female 5:29 AM CYTOLOGY MANAGER Gender Identity Not on file Sexual Orientation Not on file documented as of this encounter Plan of Treatment Not on file documented as of this encounter Procedures Procedure Name Priority Date/Time Associated Diagnosis Comments DERMATOPATHOLOGY Routine 01/30/2020 12:0 0 AM CDT documented in this encounter Results * DERMATOPATHOLOGY (01/30/2020 12:00 AM CDT) Case Report Dermatopathology Report Case: [id number] Authorizing Provider: Shonna York DO Collected: 01/30/2020 12:00 AM Ordering Location: [facility] Received: 02/03/2020 01:10 PM Pathologist: Dora Marte MD Specimen: Skin, mid back 0 5:22 PM CDT DERMATOPATHOLOGY LABORATORY Final Diagnosis Specimen A. SKIN, mid back: JUNCTIONAL MELANOCYTIC PROLIFERATION; NOT PRESENT AT SAMPLED MARGIN (D48.5) (see microscopic description and comment) 0 5:22 PM CDT DERMATOPATHOLOGY LABORATORY at 1721 CDT Clinical History R/O nevus R/O atypia. 0 5:22 PM CDT DERMATOPATHOLOGY LABORATORY Gross Description Specimen A: Received is one formalin filled container labeled with the patient's name and designated mid back. The specimen consists of a shave biopsy measuring [id number]. Jar 0. 0 5:22 PM CDT DERMATOPATHOLOGY LABORATORY Microscopic Description Specimen A. SKIN, mid back: Sections show a junctional melanocytic proliferation. There is a lentiginous proliferation of melanocytes between irregular nests. Rare scattered melanocytes show evidence of upward migration within the epidermis. The melanocytes are large and have a linn cytoplasm. The melanocytes are highlighted by MART-1/Melan-A. This lesion is not present at the sampled margin of the specimen. COMMENT: Although the architecture of this lesion is reassuring, the cytology is worrisome. As this lesion appears completely excised in the sampled sections, clinicopathologic correlation is recommended as to complete removal. 0 5:22 PM CDT DERMATOPATHOLOGY LABORATORY Disclaimer An external and internal positive and negative controls are appropriate for the histochemical, immunohistochemical and immunofluorescence stain(s) in this case (if any), except where stated explicitly. The performance characteristics of the stain(s) cited in this report were developed and its performance characteristic determined by the Dermatopathology Laboratory at [facility], directed by Dr. Curt Crawford. These tests need not be, and therefore are not, approved by the [place] Food and Drug Administration. The tests are used for clinical purposes. Billing Codes Specimen Charges Stain Charges 64675 1 63942 1 0 5:22 PM CDT DERMATOPATHOLOGY LABORATORY Embedded Images 0 5:22 PM CDT DERMATOPATHOLOGY LABORATORY Pathology/Cytolog y TISSUE SPECIMEN FROM SKIN / Unknown 01/30/2020 02/03/2020 1:10 PM CDT Shonna Barba York DO LAB - PATHOLOGY/CYTOLOGY ORDERABLES Final Result DERMATOPATHOLOGY LABORATORY [facility] - Department of Dermatology [facility]/[address] [phone] documented in this encounter Visit Diagnoses Not on filedocumented in this encounter Care Teams Burn Out Tender Lace Relationship Specialty Start Date End Date Cuauhtemoc Zuluaga MD [address] [place] [address] PCP - General 12/26/17 documented as of this encounter
--- OUTSIDE RECORDS SUMMARY | 2025-01-16 07:18 | XMS_ITS | Clinical Summary ---
Author Organization [facility] Address [address] [place] [address] Phone Care Team Providers Care Sox Analyst Name Role Phone [facility], External Provider Primary Care Provider U huyailable Allergies Active Allergy Reactions Criticality Noted Date Comments Codeine Other (See Comments) 03/09/2016 Severe headache Medications atorvastatin (LIPITOR) 10 mg tablet TAKE 1 TABLET BY MOUTH EVERY DAY 03/06/2020 Active cholecalciferol , Vitamin D3, 50 mcg (2,000 unit) Tablet Take 2,000 Units by mouth. Active clindamycin phosphate (CLEOCIN) 1 % Lotion APPLY TO GROIN ONCE DAILY 02/04/2020 Active doxycycline hyclate (VIBRAMYCIN) 100 mg capsule Take 100 mg by mouth 2 times daily. 03/01/2020 Active famotidine (PEPCID) 20 mg tablet Active omeprazole (PriLOSEC) 40 mg Capsule, Delayed Release(E.C.) TAKE 1 CAPSULE BY MOUTH EVERY DAY 12/06/2017 Active ondansetron (ZOFRAN ODT) 4 mg Tablet, Rapid Dissolve Dissolve 1 tablet for mild to moderate nausea or vomiting or 2 tablets for severe nausea or vomiting oral twice a day as needed. 01/13/2018 Active fluticasone propionate (FLONASE) 50 mcg/spray [place], Suspension nasal inhaler PLACE 2 SPRAYS INTO EACH NOSTRIL EVERY DAY 12/30/2019 Active citalopram (CeleXA) 40 mg tablet Take 40 mg by mouth. 01/10/2016 Active cetirizine (ZyrTEC) 10 mg tablet Take 10 mg by mouth. Active Active Problems No known active problems Social History Tobacco Use Types Packs/Day Years Used Date Smoking Tobacco: Never Smokeless Tobacco: Never Comments Unknown Sex and Gender Information Value Date Recorded Sex Assigned at Not on file Legal Sex Female 3:16 PM CDT Gender Identity Not on file Sexual Orientation Not on file Last Filed Vital Signs Vital Sign Reading Time Taken Comments Blood Pressure - - Pulse - - Temperature - - Respiratory Rate - - Oxygen Saturation - - Inhaled Oxygen Concentration - - Weight 142.4 kg (314 lb) 03/31/2020 10:01 AM CDT Height 165.1 cm (5' 5) 03/31/2020 10:01 AM CDT Body Mass Index 52.25 03/31/2020 10:01 AM CDT Plan of Treatment Health Maintenance Due Date Last Done Comments DTAP/TDAP/TD VACCINES (1 - Tdap) 1999 HEPATITIS B VACCINES (1 of 3 - 19+ 3-dose series) 1999 HPV/Cotest (21-29) 2001 CERVICAL CANCER SCREENING 2010 HPV/Cotest (30-65) 2010 PAP SMEAR 2010 BREAST CANCER SCREENING 2020 INFLUENZA VACCINE (#1) 2024 10/07/2016 HPV VACCINES Aged Out No longer eligi ble based on patient's age to complete this topic Insurance [place] BLUE ACCESS/TRUE BLUE PPO Care Teams Sox Analyst Relationship Specialty Start Date End Date [facility], External Provider [address] [place] [address] PCP - General 03/31/20
== END 2025-01-16 07:13 | disposition home or self-care (01) ==
LOC: ANHIMG 07:15
PROVIDERS: PCP Family Medicine; Visit Provider Obstetrics & Gynecology
DX: Z12.31 Encounter for screening mammogram for malignant neoplasm of breast (principal)
CPT/HCPCS: 77063; 77067

== ENCOUNTER 2025-03-21 14:46 | Outpatient (CLI) | payer OTHER, SELFPAY ==
--- OUTSIDE RECORDS SUMMARY | 2025-03-21 14:51 | XMS_ITS | Clinical Summary ---
Author Organization [facility] Address [address] [place] [address] Phone Care Team Providers Care Md Allergy Immunology Name Role Phone [facility], External Provider Primary Care Provider U huyailable [...] 01/13/2018 Active fluticasone propionate (FLONASE) 50 mcg/spray [place], Suspension nasal inhaler PLACE 2 SPRAYS INTO [...] Health Maintenance Due Date Last Done Comments HPV VACCINES (1 - 3-dose series) 1995 DTAP/TDAP/TD VACCINES (1 - Tdap) 1999 HEPATITIS B VACCINES (1 of 3 - 19+ 3-dose series) 07/23 HPV/Cotest (21-29) 2001 CERVICAL CANCER SCREENING 2010 HPV/Cotest (30-65) 2010 PAP SMEAR 2010 BREAST CANCER SCREENING 2020 INFLUENZA VACCINE (#1) 2025 10/07/2016 Insurance [facility] BLUE ACCESS/TRUE BLUE PPO Care Teams Md Allergy Immunology Relationship Specialty Start Date End Date [facility], External Provider [address] [place] [address] PCP - General 03/31/20
--- OUTSIDE RECORDS SUMMARY | 2025-03-21 14:52 | XMS_ITS | Clinical Summary ---
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 Not on file Not on file Last Filed Vital Signs Vital Sign Reading Time Taken Comments Blood Pressure 124/80 07/21/2016 2:40 PM KIER PLEATER Pulse 92 07/21/2016 2:40 PM KIER PLEATER Temperature 37.2 C (99 F) 07/21/2016 2:40 PM KIER PLEATER Respiratory Rate 16 07/21/2016 2:40 PM KIER PLEATER Oxygen Saturation 93% 07/21/2016 2:40 PM KIER PLEATER Inhaled Oxygen Concentration - - Weight 129.3 kg (285 lb) 07/21/2016 2:40 PM KIER PLEATER Height 165.1 cm (5' 5) 07/21/2016 2:40 PM KIER PLEATER Body Mass Index 47.43 07/21/2016 2:40 PM KIER PLEATER Plan of Treatment Health Maintenance Due Date Last Done Comments Hepatitis C Virus (HCV) Screening 1980 TdaP Immunization 1980 Human Papillomavirus (HPV) Immunization (1 - 3-dose series) 1995 Hepatitis B Immunization (1 of 3 - 19+ 3-dose series) 1999 SARS-COV-2 Immunization ( season) 2024 Influenza Immunization (#1) 2025 Respiratory Syncytial Virus (RSV) Immunization (Adult) (1 - 1-dose 75+ series) 2055 Meningococcal Immunization (ACWY) Aged Out No longer eligible based on patient's age to complete this topic Pneumococcal Immunization Combined Aged Out No longer eligible based on patient's age to complete this topic Rotavirus Immunization Aged Out No lo nger eligible based on patient's age to complete this topic Care Teams Cleaner Assistant Relationship Specialty Start Date End Date Cuauhtemoc Zuluaga MD [address] [address] PCP - General Family Medicine 02/12/16 Vee Dahl APRN, HAND STRIPPER [address] [address] Nurse Practitioner Advanced Practice Nurse 03/09/16
--- OUTSIDE RECORDS SUMMARY | 2025-03-21 14:52 | XMS_ITS | Encounter Summary ---
Author Organization [facility] Address [address] [place] [address] Care Team Providers Care Bottling Line Attendant Name Role Phone Cuauhtemoc Zuluaga MD Primary Care Provider [phone] Encounter Details Date Type Department Care Team (Late st Contact Info) Description 2024 Artaict Message Enc [facility] Orthopedic & Sports Medicine - [place] [address] [place] [address] Kyle Suarez MD [address] [place] [address] Cast - Follow Up Social History Tobacco Use Types Packs/Day Years Used Date Smoking Tobacco: Former Cigarettes 0.5 10 Q uit: 2013 Passive Smoke Exposure: Never Smokeless Tobacco: Former Alcohol Use Standard Drinks/Week Comments Not Currently 0 (1 standard drink = 0.6 oz pur e alcohol) [facility] Utilities Answer Date Recorded In the past 12 months has e [employer], gas, oil, or water [employer] threatened to shut off services in your home? No 02/04/2024 Humiliation, Afraid, Rape, and Kick questionnair e Answer Date Recorded Within the last year, have y ou been afraid of your partner or ex-partner? No 02/04/2024 Within the last year, have y ou been humiliated or emotionally abused in other ways by your partner or ex-partner? No Within the last year, have y ou been kicked, hit, slapped, or otherwise physically hurt by your partner or ex-partner? No 02/04/2024 Within the last year, have y ou been raped or forced to have any kind of sexual activity by your partner or ex-partner? No 02/04/2024 Overall Financial Resource Strain (CARDIA) Answe r Date Recorded How hard is it for you to pa y for the very basics like food, housing, medical care, and heating? Not hard at all 02/04/2024 PHQ-2 Answer Date Recorded Patient Health Questionnaire-2 Score 0 03/11/2024 Hunger Vital Sign Answer Date Recorded Within the past 12 months, y ou worried that your food would run out before you got the money to buy more. Never true 02/04/20 24 Within the past 12 months, t he food you bought just didn't last and you didn't have money to get more. Never true 02/04/2024 PRAPARE - Transportation Answer Date Re corded In the past 12 months, has l ack of transportation kept you from medical appointments or from getting medications? No 01/19 In the past 12 months, has l ack of transportation kept you from meetings, work, or from getting things needed for daily living? No 02/04/2024 Housing Stability Vital Sign Answer Eladio e Recorded In the last 12 months, was t here a time when you were not able to pay the mortgage or rent on time? No 02/04/2024 In the past 12 months, how m any times have you moved where you were living? 1 02/04/2024 At any time in the past 12 m [facility], were you homeless or living in a fdc (including now)? 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 Sex Female 10:22 PM CARPENTER SHIP Gender Identity Female 02/08/2023 8:04 AM CDT Sexual Orientation Straight 02/08/2023 8: 04 AM CDT documented as of this encounter Functional Status * Are you deaf or do you have serious difficulty hearing Answer Date of Assessment Author Status No 02/04/2024 12:08 AM CDT Erika Rousseau RN Active * Are you blind or do you have serious difficulty seeing, even when wearing glasses? Answer Date of Assessment Author Status No 02/04/2024 12:08 AM CDT Erika Rousseau RN Active * Do you have serious difficulty walking or climbing stairs? Answer Date of Assessment Author Status No 02/04/2024 12:08 AM CDT Erika Rousseau RN Active * Do you have difficulty dressing or bathing? Answer Date of Assessment Author Status No 02/04/2024 12:08 AM CDT rEika Rousseau RN Active * Because of a physical, mental, or emotional condition, do you have difficulty doing errands alone such as visiting a doctor's office or shopping? Answer Date of Assessment Author Status No 02/04/2024 12:08 AM CDT Erika oRusseau RN Active documented as of this encounter Mental Status * Because of a physical, mental, or emotional condition, do you have serious difficulty concentrating, remembering, or making decisions? Answer Entry Date Author Status No 02/04/2024 12:08 AM CDT Erika Rousseau RN Active documented in this encounter Plan of Treatment Not on file documented as of this encounter Goals Goal Patient Goal Type Associated Problems Recent Progress Patient-Stated? Author Health - patient able to perform ADLs independently Lifestyle No Emily Fairbanks RN documented as of this encounter Visit Diagnoses Not on filedocumented in this encounter Care Teams Bottling Line Attendant Relationship Specialty Start Date End Date Cuauhtemoc Zuluaga MD [address] [place] [address] PCP - General FAMILY PRACTICE 12/21/22 documented as of this encounter
--- OUTSIDE RECORDS SUMMARY | 2025-03-21 14:52 | XMS_ITS | Encounter Summary ---
Author Organization [facility] Address [address] [place] [address] Care Team Providers Care Gauger Delivery Name Role Phone Cuauhtemoc Zuluaga MD Primary Care Provider [phone] Encounter Details Date Type Department Care Team (Late st Contact Info) Description 09/26/2024 Yingying Licait Message Enc [facility] Orthopedic & Sports Medicine - [place] [address] [place] [address] Kyle Suarez MD [address] [place] [address] Appt Request - Elisabeth Social History Tobacco Use Types Packs/Day Years Used Date Smoking Tobacco: Former Cigarettes 0.5 10 Q uit: 2013 Passive Smoke Exposure: Never Smokeless Tobacco: Former Alcohol Use Standard Drinks/Week Comments Not Currently 0 (1 standard drink = 0.6 oz pur e alcohol) [facility] Utilities Answer Date Recorded In the past 12 months has e [employer], gas, oil, or water [employer] threatened to shut off services in your [...] Date Recorded Patient Health Questionnaire-2 Score 0 09/19/2024 Hunger Vital Sign Answer Date Recorded Within [...] any time in the past 12 m [facility], were you homeless or living in a retirement (including now)? 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 Answer Date of Assessment Author Status No 02/04/2024 12:08 AM CDT Erika Rousseau RN Active documented as of this encounter [...] on filedocumented in this encounter Care Teams Gauger Delivery Relationship Specialty Start Date End Date Cuauhtemoc Zuluaga MD [address] [address] PCP - General FAMILY PRACTICE 12/21/22 documented as of this encounter
--- OUTSIDE RECORDS SUMMARY | 2025-03-21 14:52 | XMS_ITS | Encounter Summary ---
Author Organization [facility] Address [address] [place] [address] Care Team Providers Care Pattern Ruler Name Role Phone Cuauhtemoc Zuluaga MD Primary Care Provider [phone] Encounter Details Date Type Department Care Team (Late st Contact Info) Description 08/08/2024 LYFE Kitchen Message Enc [facility] Orthopedic & Sports Medicine - [place] [address] [place] [address] Kyle Suarez MD [address] [place] [address] Cast Social History Tobacco Use Types Packs/Day Years Used Date Smoking Tobacco: Former Cigarettes 0.5 10 Q uit: 2013 Passive Smoke Exposure: Never Smokeless Tobacco: Former Alcohol Use Standard Drinks/Week Comments Not Currently 0 (1 standard drink = 0.6 oz pur e alcohol) [facility] Utilities Answer Date Recorded In the past 12 months has e [employer], gas, oil, or water [employer] threatened to shut off services in your [...] any time in the past [address] [facility], were you homeless or living in a intermediate (including now)? 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 Sex Female 10:22 PM RESEARCH EPIDEMIOLOGIST Gender Identity Female 02/08/2023 8:04 AM CDT [...] on filedocumented in this encounter Care Teams Pattern Ruler Relationship Specialty Start Date End Date Cuauhtemoc Zuluaga MD [address] [address] PCP - General FAMILY PRACTICE 12/21/22 documented as of this encounter
--- OUTSIDE RECORDS SUMMARY | 2025-03-21 14:52 | XMS_ITS | Encounter Summary ---
Author Organization [facility] Address [address] [place] [address] Care Team Providers Care Psychologists Name Role Phone Cuauhtemoc Zuluaga MD Primary Care Provider [phone] Encounter Details Date Type Department Care Team (Late st Contact Info) Description 02/03/2020 Lab Requisition [facility] [address] [facility], [place] [address] Shonna York DO [address] 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 Gender Identity Not on file Sexual Orientation Not on file documented as of this encounter Plan of Treatment Not on file documented as of this encounter Procedures Procedure Name Priority Date/Time Associated Diagnosis Comments DERMATOPATHOLOGY Routine 01/30/2020 12:0 0 AM CDT documented in this encounter Results * DERMATOPATHOLOGY (01/30/2020 12:00 AM CDT) Case Report Dermatopathology Report Case: [id number] Authorizing Provider: Shonna York DO Collected: 01/30/2020 12:00 AM Ordering Location: [facility] Received: 02/03/2020 01:10 PM Pathologist: [...] specimen consists of a shave biopsy measuring [id number]. Jar 0. 0 5:22 PM CDT DERMATOPATHOLOGY [...] characteristic determined by the Dermatopathology Laboratory at [facility], directed by Dr. Curt Crawford. These tests need not be, and therefore are not, approved by the [place] Food and Drug Administration. The tests are used for clinical purposes. Billing Codes Specimen Charges Stain Charges 51284 1 [id number] 1 0 5:22 PM CDT DERMATOPATHOLOGY LABORATORY Embedded Images 0 5:22 PM CDT DERMATOPATHOLOGY LABORATORY Pathology/Cytolog y TISSUE SPECIMEN FROM SKIN / Unknown 01/30/2020 02/03/2020 1:10 PM CDT Shonna Barba York DO LAB - PATHOLOGY/CYTOLOGY ORDERABLES Final Result DERMATOPATHOLOGY LABORATORY [facility] - Department of Dermatology Treatment [facility]/[address] [phone] documented in this encounter Visit Diagnoses Not on filedocumented in this encounter Care Teams Psychologists Relationship Specialty Start Date End Date Cuauhtemoc Zuluaga MD [address] [place] [address] PCP - General 12/26/17 documented as of this encounter
--- OUTSIDE RECORDS SUMMARY | 2025-03-21 14:52 | XMS_ITS | Encounter Summary ---
Author Organization [facility] Address [address] [place] [address] Care Team Providers Care Star Route Mail Driver Name Role Phone Cuauhtemoc Zuluaga MD Primary Care Provider [phone] Encounter Details Date Type Department Care Team (Late st Contact Info) Description 08/29/2024 QuantConnectt Message Enc [facility] Orthopedic & Sports Medicine - [place] [address] [place] [address] Kyle Suarez MD [address] [place] [address] Medical Request Social History Tobacco Use Types Packs/Day Years Used Date Smoking Tobacco: Former Cigarettes 0.5 10 Q uit: 2013 Passive Smoke Exposure: Never Smokeless Tobacco: Former Alcohol Use Standard Drinks/Week Comments Not Currently 0 (1 standard drink = 0.6 oz pur e alcohol) [facility] Utilities Answer Date Recorded In the past 12 months has e [employer], gas, oil, or water [employer] threatened to shut off services in your [...] any time in the past 12 m [facility], were you homeless or living in a nursing home (including now)? 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 Sex Female 10:22 PM CHANNEL LAYER Gender Identity Female 02/08/2023 8:04 AM CDT [...] on filedocumented in this encounter Care Teams Star Route Mail Driver Relationship Specialty Start Date End Date Cuauhtemoc Zuluaga MD [address] [place] [place] [address] PCP - General FAMILY PRACTICE 12/21/22 documented as of this encounter
--- OUTSIDE RECORDS SUMMARY | 2025-03-21 14:52 | XMS_ITS | Patient Health Record ---
Author Organization [facility] Address [address] [facility] [address]. [address] [place] [address] Care Team Providers Care Agency Operator Name Role Phone Margareth LANDRUM, Cuauhtemoc Primary Care Provider Edwardoa Reilly Su Unavailable [phone] Reason For Referral No Information Medications Medication [...] Problem Status W/U Status Risk Notes Problem [id number] Heartburn (R12) Active confirmed Problem [id number] Fatty liver (K76.0) Active confirmed Plan Of Treatment No Information Insurance Providers Payer Name Payer Address Payer Phone Subscriber Number Group Number Insured Name Patient Relationship to Insured Coverage Start Date Coverage End Date Blue Access PPO E2 [address] [place] [address] [id number] Josefa Costello Self - patient is the insured Medical (General) History Medical History History ICD Code Liver disease GERD Surgical History Surgery Date(Month/Year) Colononscopy 2015 Laproscopic procedure for endometriosis Ovarian cyst Cholecystectomy Sinus surgery Lithotripsy Partial hysterectomy Left oophorectomy
--- OUTSIDE RECORDS SUMMARY | 2025-03-21 14:52 | XMS_ITS | Encounter Summary ---
Author Organization [facility] Address [address] [place] [address] Care Team Providers Care Corporate Travel Consultant Name Role Phone Cuauhtemoc Zuluaga MD Primary Care Provider Encounter Details Date Type Department Care Team (Late st Contact Info) Description 08/01/2024 [employer] Message Enc [facility] Medical Group Orthopedic & Sports Medicine - [place] [address] [place] [address] Kyle uSarez MD [address] [place] [address] Medication Refill Social History Tobacco Use Types Packs/Day Years Used Date Smoking Tobacco: Former Cigarettes 0.5 10 Q uit: 2013 Passive Smoke Exposure: Never Smokeless Tobacco: Former Alcohol Use Standard Drinks/Week Comments Not Currently 0 (1 standard drink = 0.6 oz pur e alcohol) [facility] Utilities Answer Date Recorded In the past 12 months has e [employer], gas, oil, or water [employer] threatened to shut off services in your [...] time in the past 12 m [facility], were you homeless or living in a correction (including now)? 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 Sex Female 10:22 PM ADMINISTRATIVE ASSOCIATE Gender Identity Female 02/08/2023 8:04 AM CDT [...] on filedocumented in this encounter Care Teams Corporate Travel Consultant Relationship Specialty Start Date End Date Cuauhtemoc Zuluaga MD [address] [address] PCP - General FAMILY PRACTICE 12/21/22 documented as of this encounter
--- OUTSIDE RECORDS SUMMARY | 2025-03-21 14:52 | XMS_ITS | Encounter Summary ---
Author Organization [facility] Address [address] [place] [address] Care Team Providers Care Business Risk Consultant Name Role Phone Cuauhtemoc Zuluaga MD Primary Care Provider [phone] Encounter Details Date Type Department Care Team (Late st Contact Info) Description 02/12/2025 XMLAWt Message Enc [facility] Medical Group Orthopedic & Sports Medicine - [place] [address] [place] [address] Kyle Suarez MD [address] [place] [address] Referral Request Social History Tobacco Use Types Packs/Day Years Used Date Smoking Tobacco: Former Cigarettes 0.5 10 Q uit: 2013 Passive Smoke Exposure: Never Smokeless Tobacco: Former Alcohol Use Standard Drinks/Week Comments Not Currently 0 (1 standard drink = 0.6 oz pur e alcohol) [facility] Utilities Answer Date Recorded In the past 12 months has e [employer], gas, oil, or water [employer] threatened to shut off services in your [...] any time in the past 12 m [facility], were you homeless or living in a longterm (including now)? 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 Sex Female 10:22 PM CASE ADVOCATE Gender Identity Female 02/08/2023 8:04 AM CDT [...] on filedocumented in this encounter Care Teams Business Risk Consultant Relationship Specialty Start Date End Date Cuauhtemoc Zuluaga MD [address] [place] [address] PCP - General FAMILY PRACTICE 12/21/22 documented as of this encounter
--- OUTSIDE RECORDS SUMMARY | 2025-03-21 14:52 | XMS_ITS | Clinical Summary ---
Author Organization [facility] Address [address] [facility] [place] [address] Care Team Providers Care Transfer Car Operator Name Role Phone Cuauhtemoc Zuluaga MD Primary Care Provider [phone] Source Comments [facility],non[facility] Affiliates and Associated Physician Practices is amultiple site organization consisting of ambulatory clinics and hospital sitesin [place], [place] and [place]. This disclosure is being madepursuant to the Care Everywhere program and may not contain all information available regarding this patient. Last updated 18.[facility] [place] Social History Tobacco Use Types Packs/Day Years Used Date Smoking Tobacco: Never Assessed Comments Unknown Sex and Gender Information Value Date Recorded Sex Assigned at Not on file Legal Sex Female 5:29 AM SPECIAL PROJECTS COORDINATOR Gender Identity Not on file Sexual Orientation [...] of 3 - 19+ 3-dose series) 1999 HPV VACCINE (1 - 3-dose SCDM series) 2007 COVID-19 VACCINE (1 - 2023-2 5 season) 2024 DEPRESSION SCREENING 08/21/2024 INFLUENZA VACCINE (#1) 2025 ZOSTER VACCINE (1 of 2) 2030 [...] patient's age to complete this topic Insurance [facility] Care Teams Transfer Car Operator Relationship Specialty Start Date End Date Cuauhtemoc Zuluaga MD [address] [place] [phone] (work) PCP - General 12/26/17
--- OUTSIDE RECORDS SUMMARY | 2025-03-21 14:52 | XMS_ITS | Encounter Summary ---
Author Organization [facility] Address [address] [place] [address] Care Team Providers Care Mid Level Java Developer Name Role Phone Cuauhtemoc Zuluaga MD Primary Care Provider [phone] Encounter Details Date Type Department Care Team (Late st Contact Info) Description 03/30/2020 Lab Requisition [facility] D[facility] Lab [address] [facility] [place] [address] Shonna York DO [address] [facility] [address] [place] [address] Social History Tobacco Use Types Packs/Day Years Used Date Smoking Tobacco: Never Assessed Comments Unknown Sex and Gender Information Value Date Recorded Sex Assigned at Not on file Legal Sex Female 5:29 AM SPRING WINDER Gender Identity Not on file Sexual Orientation Not on file documented as of this encounter Plan of Treatment Not on file documented as of this encounter Procedures Procedure Name Priority Date/Time Associated Diagnosis Comments DERMATOPATHOLOGY Routine 03/26/2020 12:0 0 AM CDT documented in this encounter Results * DERMATOPATHOLOGY (03/26/2020 12:00 AM CDT) Case Report Dermatopathology Report Case: [id number] Authorizing Provider: Shonna York DO Collected: 03/26/2020 12:00 AM Ordering Location: [facility] Lab Received: 03/30/2020 12:05 PM Pathologist: [...] back.The specimen consists of an ellipse measuring [id number] mm and is oriented with the suture/notch [...] purposes. Billing Codes Specimen Charges Stain Charges [id number] 1 0 12:20 PM CDT DERMATOPATHOLOGY LABORATORY Embedded Images 0 12:20 PM CDT DERMATOPATHOLOGY LABORATORY Pathology/Cytolog y TISSUE SPECIMEN FROM SKIN / Unknown 03/26/2020 03/30/2020 12:05 PM CDT us Shonna York DO LAB - PATHOLOGY/CYTOLOGY ORDERABLES Final Result DERMATOPATHOLOGY LABORATORY [facility] - Department of Dermatology Plasma Processing Technician Center/[address] [phone] documented in this encounter Visit Diagnoses Not on filedocumented in this encounter Care Teams Mid Level Java Developer Relationship Specialty Start Date End Date Cuauhtemoc Zuluaga MD [address] [place] [address] PCP - General 12/26/17 documented as of this encounter
--- OUTSIDE RECORDS SUMMARY | 2025-03-21 14:52 | XMS_ITS | Clinical Summary ---
Author Organization [facility] Address [facility]ly [facility] [place] [address] Care Team Providers Care Forestry Technical Officer Name Role Phone Cuauhtemoc Zuluaga MD Primary Care Provider [phone] Allergies No known active allergies Medications albuterol sulfate HFA 108 (90 Base) MCG/ACT inhaler INHALE 1 PUFF EVERY 4 HOURS NEEDED FOR SHORTNESS OF BREATH OR WHEEZING 3 Active atorvastatin (LIPITOR) 10 MG tablet Take 1 tablet (10 mg total) by mouth daily. 3 Active omeprazole (PRILOSEC) 40 MG capsule Take 1 capsule (40 mg total) by mouth daily. 3 Active metoprolol succinate ER (TOPROL-XL) 25 MG 24 hr tablet Take 1 tablet (25 mg total) by mouth daily. 3 Active citalopram (CELEXA) 40 MG tablet Take 1 tablet (40 mg total) by mouth daily. 3 Active fluticasone propionate (FLONASE) 50 MCG/ACT nasal spray 2 sprays by Nasal route daily. [place] Into Each Nostril 3 Active aspirin 81 MG chewable tablet Chew 1 tablet (81 mg total) by mouth daily. Active HYDROcodone-aceta minophen (NORCO) 5-325 MG tablet Take 1 tablet by mouth every 4 (four) hours as needed for Pain. FOR PAIN From Kidney stones- when the recur 4 Active pregabalin (LYRICA) 100 MG capsule Take 1 capsule (100 mg total) by mouth 2 (two) times daily. 4 Active BONE STIMULATOR, DME,Indications:C losed nondisplaced fracture of lunate of right wrist, initial encounter Lunate fracture 1 Device 5 Active gabapentin (NEURONTIN) 300 MG capsule 5 Active metFORMIN (GLUCOPHAGE) 500 MG tablet Take 1 tablet (500 mg total) by mouth 2 (two) times daily with meals. 5 Active ZEPBOUND 5 MG/0.5ML injection Inject 5 mg into the skin once a week. 5 Active triamcinolone (KENALOG) 0.1 % cream APPLY CREAM EXTERNALLY TWICE DAILY NEEDED FOR ECZEMA 5 Active Active Problems Problem Noted Date Diagnosed Date Closed nondisplaced fracture of lunate of right wrist, initial encounter 06/26/2024 Headache 02/03/2024 Sleep apnea in adult 08/28/2018 Gastroesophageal reflux disease 03/09/2016 Encounters Date Type Department Care Team Description 02/12/2025 Orders Only [facility] Medical [facility] [address] [place] [address] Kyle Suarez MD 02/12/2025 MyCYext Message Enc [facility] Orthopedic & Sports Medicine [facility] [address] [place] [address] Kyle Suarez MD Referral Request 01/27/2025 8:00 AM CDT Office Visit [facility] Orthopedic & Sports Medicine [facility] [address] [place] [address] Kyle Suarez MD Follow Up (Right wrist ) 01/27/2025 Scan Private.Me HEALTH INFO SRVCS Scanned, Doc Med Group 01/27/2025 Travel 01/01/2025 MyChart Message Enc [facility] Orthopedic & Sports Medicine [facility] [address] [place] [address] Kyle Suarez MD Wrist Injection from Last 3 Months Family History Medical History Relation Comments Arthritis Father CHF Father Cancer Father Diabetes Father Heart Disease Father Hypertension Father Kidney failure Father CHF Mother Diabetes Mother Heart Disease Mother Hypertension Mother Kidney Disease Mother Kidney failure Mother Miscarriages / Stillbirths Mother Stroke Mother Relation Status Comments Father Mother Social History Tobacco Use Types Packs/Day Years Used Date Smoking Tobacco: Former Cigarettes 0.5 10 Q uit: 2013 Passive Smoke Exposure: Never Smokeless Tobacco: Former Tobacco Cessation:Counseling Given: No Alcohol Use Standard Drinks/Week Comments Not Currently 0 (1 standard drink = 0.6 oz pur e alcohol) [facility] Utilities Answer Date Recorded In the past 12 months has th e [employer], gas, oil, or water [employer] threatened to shut off services in your [...] any time in the past 12 m [facility], were you homeless or living in a prison (including now)? 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 Sex Female 10:22 PM SOCIAL SERVICES DIRECTOR Gender Identity Female 02/08/2023 8:04 AM CDT Sexual Orientation Straight 02/08/2023 8: 04 AM CDT Last Filed Vital Signs Vital Sign Reading Time Taken Comments Blood Pressure 104/61 01/27/2025 8:15 AM CDT Pulse 60 01/27/2025 8:15 AM CDT Temperature 35.6 C (96 F) 01/27/2025 8:15 AM CDT Respiratory Rate 16 2024 2:40 PM SOCIAL SERVICES DIRECTOR Oxygen Saturation 97% 07/23/2024 11: 33 PM SOCIAL SERVICES DIRECTOR Inhaled Oxygen Concentration - - Weight 142.8 kg (314 lb 12.8 oz) 01/27/2025 8:15 AM CDT Height 165.1 cm (5' 5) 01/27/2025 8:15 AM CDT Body Mass Index 52.39 01/27/2025 8:15 AM CDT Plan of Treatment Health Maintenance Due Date Last Done Comments Annual Physical 1983 Hepatitis C 1998 DTaP, Tdap and Td Vaccines ( 1 - Tdap) 1999 Hepatitis B Vaccines (1 of 3 - 19+ 3-dose series) 1999 HPV Vaccines (1 - 3-dose SCD M series) 2007 COVID-19 Vaccine ( - 2023-2 5 season) 2024 08/26/2021, 10/26/2020 PHQ-2 (Physician [place]) Completed 09/19/2024 Meningococcal B Vaccine Aged Out No l onger eligible based on patient's age to complete this topic Meningococcal Vaccine Aged Out No arvin damian eligible based on patient's age to complete this topic Pneumococcal Vaccine: Pediatrics (0 to 5 Years) and At-Risk Patients (6 to 49 Years) Aged Out No longer eligible b ased on patient's age to complete this topic RSV Immunizations Under 20 Months Aged Out No longer eligible b ased on patient's age to complete this topic Goals Goal Patient Goal Type Associated Problems Recent Progress Patient-Stated? Author Health - patient able to perform ADLs independently Lifestyle No Emily Fairbanks, RN Medical Devices Implanted Type Area Promotions Firm Accounts Manager Device Identifier Shelf Expiration Date Model / Serial / Lot [employer] Compression Cannulated Headless Screw 2.5 X 13 Mm Implanted:Qty: 1 on 07/17/2024 by Kyle Suarez MD at [facility] [employer] Screw Right: Wrist [employer] [id number] / / Procedures Procedure Name Priority Date/Time Associated Diagnosis Comments OXR MINI HAKEEM GUIDANCE Routine 01/27/2025 9:11 AM CDT Nondisplaced fracture of lunate (semilunar), right wrist, subsequent encounter for fracture with nonunion OXR RT WRIST M3V Routine 01/27/2025 8:49 AM CDT Closed nondisplaced fracture of lunate of right wrist, initial encounter from Last 3 Months Results * OXR MINI HAKEEM GUIDANCE (01/27/2025 9:11 AM CDT) Anatomical Region Laterality Modality Undefined Fluoroscopy 01/27/2025 9:23 AM CDT Narrative 01/27/2025 9:23 AM CDT This report does not contain a radiologist's interpretation. Please review associated procedure and/or operative report. Procedure Note Kyrie Navarro MD - 01/27/2025 This report does not contain a radiologist's interpretation. Please review associated procedure and/or operative report. us Kyle Suarez MD FLUOROSCOPY Final Result * OXR RT WRIST M3V (01/27/2025 8:49 AM CDT) Anatomical Region Laterality Modality Radiographic Maria R ging Narrative 03/18/2025 12:56 PM CDT Alignment within normal limits, No gross deformities, no soft tissue abnormalities, lesions or gas. No bony tumors or lesions. Fracture fragments well reduced with no signs of interval displacement. No interval abnormal changes. Hardware in proper placement.,possible capitolunate arthritic changes. No evidence of bone healing us Kyle Suarez MD GENERAL IMAGING Final Result from Last 3 Months Insurance [employer] - [employer] Advance Directives * Full Code (Latest Code Status on File) Date Activated Date Inactivated Comments 02/03/2024 11:24 PM 02/05/2024 7:56 PM Care Teams Forestry Technical Officer Relationship Specialty Start Date End Date Cuauhtemoc Zuluaga MD [address] [place] [address] PCP - General FAMILY PRACTICE 12/21/22
--- OUTSIDE RECORDS SUMMARY | 2025-03-21 14:52 | XMS_ITS | Encounter Summary ---
Author Organization [facility] Address [address] [place] [address] Care Team Providers Care Electrical Project Manager Name Role Phone Cuauhtemoc Zuluaga MD Primary Care Provider [phone] Encounter Details Date Type Department Care Team (Late st Contact Info) Description 07/23/2024 [employer] Private Message Enc [facility] Medical Group Orthopedic & Sports Medicine - [place] [address] [place] [address] Kyle Suarez MD [address] [place] [address] Cast Social History Tobacco Use Types Packs/Day Years Used Date Smoking Tobacco: Former Cigarettes 0.5 10 Q uit: 2013 Passive Smoke Exposure: Never Smokeless Tobacco: Former Alcohol Use Standard Drinks/Week Comments Not Currently 0 (1 standard drink = 0.6 oz pur e alcohol) [facility] Utilities Answer Date Recorded In the past 12 months has e [employer], gas, oil, or water [employer] threatened to shut off services in your [...] any time in the past 12 m [facility], were you homeless or living in a custodial (including now)? 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 Sex Female 10:22 PM COMMUNICATIONS ATTENDANT Gender Identity Female 02/08/2023 8:04 AM CDT [...] AM CDT Erika Rousseau RN Active * Calculated C-SSRS Risk Score (Lifetime/Recent) Answer Date of Assessment Author Status No Risk Indicated 07/23/2024 11:36 PM Bernardino Mustafa RN Active * [place] Suicide Severity Rating Scale (Screener/Recent Self-Report) Question Answer Date of Assessment Author Status 1. Wish to be (Past 1 Month) No 07/23/2024 11:36 PM COMMUNICATIONS ATTENDANT Shanta Eastman RN A ctive 2. Non-Specific Active Suicidal Thoughts (Past 1 Month) No 07/23/2024 11:36 PM COMMUNICATIONS ATTENDANT Shanta Eastman RN A ctive 6. Suicidal Behavior (Lifetime) No 07/23/2024 11:36 PM Shanta Mustafa RN A ctive documented as of this encounter Mental Status [...] on filedocumented in this encounter Care Teams Electrical Project Manager Relationship Specialty Start Date End Date Cuauhtemoc Zuluaga MD [address] [address] PCP - General FAMILY PRACTICE 12/21/22 documented as of this encounter
--- OUTSIDE RECORDS SUMMARY | 2025-03-21 14:52 | XMS_ITS | Encounter Summary ---
Author Organization [facility] Address [address] [place] [address] Care Team Providers Care Personal Caregiver Name Role Phone Cuauhtemoc Zuluaga MD Primary Care Provider [phone] Encounter Details Date Type Department Care Team (Late st Contact Info) Description 01/01/[address] [facility] Medical Group Orthopedic & Sports Medicine - [place] [address] [place] [address] Kyle Suarez MD [address] [place] [address] Wrist Injection Social History Tobacco Use Types Packs/Day Years Used Date Smoking Tobacco: Former Cigarettes 0.5 10 Q uit: 2013 Passive Smoke Exposure: Never Smokeless Tobacco: Former Alcohol Use Standard Drinks/Week Comments Not Currently 0 (1 standard drink = 0.6 oz pur e alcohol) [facility] Utilities Answer Date Recorded In the past 12 months has e [employer], gas, oil, or water [employer] threatened to shut off services in your [...] any time in the past 12 m [facility], were you homeless or living in a group home (including now)? 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
--- OUTSIDE RECORDS SUMMARY | 2025-03-21 14:52 | XMS_ITS | Encounter Summary ---
Author Organization [facility] Address [address] [place] [address] Care Team Providers Care Buzzle Buffer Name Role Phone Cuauhtemoc Zuluaga MD Primary Care Provider Encounter Details Date Type Department Care Team (Late st Contact Info) Description 11/05/2024 [employer] Message Enc [facility] Medical Group Orthopedic & Sports Medicine - [place] [address] [place] [address] Kyle Suarez MD [address] [place] [address] Bone Stimulator Social History Tobacco Use Types Packs/Day Years Used Date Smoking Tobacco: Former Cigarettes 0.5 10 Q uit: 2013 Passive Smoke Exposure: Never Smokeless Tobacco: Former Alcohol Use Standard Drinks/Week Comments Not Currently 0 (1 standard drink = 0.6 oz pur e alcohol) [facility] Utilities Answer Date Recorded In the past 12 months has e [employer] gas, oil, or water [employer] threatened to shut off services in your [...] any time in the past 12 m [facility], were you homeless or living in a group home (including now)? 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 Sex Female 10:22 PM EATING DISORDER SPECIALIST Gender Identity Female 02/08/2023 8:04 AM CDT [...] on filedocumented in this encounter Care Teams Buzzle Buffer Relationship Specialty Start Date End Date Cuauhtemoc Zuluaga MD [address] [place] [address] PCP - General FAMILY PRACTICE 12/21/22 documented as of this encounter
--- OUTSIDE RECORDS SUMMARY | 2025-03-21 14:52 | XMS_ITS | Encounter Summary ---
Author Organization [facility] Address [address] [place] [address] Care Team Providers Care Internal Medicine Doctor Name Role Phone Cuauhtemoc Zuluaga MD Primary Care Provider [phone] Encounter Details Date Type Department Care Team (Late st Contact Info) Description 07/25/2024 [employer] Message Enc [facility] Medical Group Orthopedic & Sports Medicine - [place] [address] [place] [address] Kyle Suarez MD [address] [place] [address] Follow-Up Appts Social History Tobacco Use Types Packs/Day Years Used Date Smoking Tobacco: Former Cigarettes 0.5 10 Q uit: 2013 Passive Smoke Exposure: Never Smokeless Tobacco: Former Alcohol Use Standard Drinks/Week Comments Not Currently 0 (1 standard drink = 0.6 oz pur e alcohol) [facility] Utilities Answer Date Recorded In the past 12 months has e [employer], gas, oil, or water [employer] threatened to shut off services in your [...] any time in the past 12 m [facility], were you homeless or living in a snf (including now)? 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 Sex Female 10:22 PM TENSION WORKER Gender Identity Female 02/08/2023 8:04 AM CDT [...] on filedocumented in this encounter Care Teams Internal Medicine Doctor Relationship Specialty Start Date End Date Cuauhtemoc Zuluaga MD [address] [place] [address] PCP - General FAMILY PRACTICE 12/21/22 documented as of this encounter
== END 2025-03-21 14:47 | disposition home or self-care (01) ==
LOC: ANHIMG 14:49
PROVIDERS: PCP Family Medicine
DX: M25.561 Pain in right knee (principal)
CPT/HCPCS: 73562

== ENCOUNTER 2025-06-13 01:04 | Day surgery (SDC) | payer OTHER, SELFPAY ==
[2025-06-05 13:56] VITALS: BMI 46.2
--- OUTSIDE RECORDS SUMMARY | 2025-06-13 01:06 | XMS_ITS | Encounter Summary ---
Author Organization [facility] Address [address] [place] [address] Care Team Providers Care Transitional Care Liaison Name Role Phone Cuauhtemoc Zuluaga MD Primary Care Provider [phone] Encounter Details Date Type Department Care Team (Late st Contact Info) Description 01/01/[address] [facility] Orthopedic & Sports Medicine - [place] [address] [place] [address] Kyle Suarez MD [address] [place] [address] Wrist Injection Social History Tobacco Use Types Packs/Day Years Used Date Smoking Tobacco: Former Cigarettes 0.5 10 Q uit: 2013 Passive Smoke Exposure: Never Smokeless Tobacco: Former Alcohol Use Standard Drinks/Week Comments Not Currently 0 (1 standard drink = 0.6 oz pur e alcohol) [facility] Utilities Answer Date Recorded In the past 12 months has e [employer], gas, oil, or water [employer] threatened to shut off services in your [...] any time in the past 12 m [facility], were you homeless or living in a skilled nursing (including now)? 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 Sex Female 10:22 PM ACTIVITY LEADER Gender Identity Female 02/08/2023 8:04 AM CDT [...] on filedocumented in this encounter Care Teams Transitional Care Liaison Relationship Specialty Start Date End Date Cuauhtemoc Zuluaga MD [address] [place] [address] PCP - General FAMILY PRACTICE 12/21/22 documented as of this encounter
--- OUTSIDE RECORDS SUMMARY | 2025-06-13 01:06 | XMS_ITS | Encounter Summary ---
Author Organization [facility] Address [address] [place] [address] Care Team Providers Care Green Chain Worker Name Role Phone Cuauhtemoc Zuluaga MD Primary Care Provider [phone] Encounter Details Date Type Department Care Team (Late st Contact Info) Description 09/26/2024 Notify Technologyt Message Enc [facility] Orthopedic & Sports Medicine - [place] [address] [place] [address] Kyle Suarez MD [address] [place] [address] Appt Request - Elisabeth Social History Tobacco Use Types Packs/Day Years Used Date Smoking Tobacco: Former Cigarettes 0.5 10 Q uit: 2013 Passive Smoke Exposure: Never Smokeless Tobacco: Former Alcohol Use Standard Drinks/Week Comments Not Currently 0 (1 standard drink = 0.6 oz pur e alcohol) [facility] Utilities Answer Date Recorded In the past 12 months has e [employer], gas, oil, or water [employer] threatened to shut off services in your [...] in the past [address] [facility], were you homeless or living in a custodial (including now)? 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 Sex Female 10:22 PM TOWBOAT PILOT Gender Identity Female 02/08/2023 8:04 AM CDT [...] on filedocumented in this encounter Care Teams Green Chain Worker Relationship Specialty Start Date End Date Cuauhtemoc Zuluaga MD [address] [address] PCP - General FAMILY PRACTICE 12/21/22 documented as of this encounter
--- OUTSIDE RECORDS SUMMARY | 2025-06-13 01:06 | XMS_ITS | Clinical Summary ---
Author Organization [facility] Address Counts include 234 beds at the [facility] [place] [address] Care Team Providers Care Secondary Market Manager Name Role Phone Cuauhtemoc Zuluaga MD Primary Care Provider [phone] Allergies No known active allergies Medications albuterol [...] spray 2 sprays by Nasal route daily. [place] Into Each Nostril 3 Active aspirin 81 [...] Encounters Date Type Department Care Team Description 03/31/2025 Pass[employer] Systems Message Enc [facility] Orthopedic & Sports Medicine - [place] [address] [place] [address] Kyle Suarez MD Referral Documents Needed from Last 3 Months Family History Medical [...] drink = 0.6 oz pur e alcohol) [facility] Utilities Answer Date Recorded In the past 12 months has e [employer], gas, oil, or water [employer] threatened to shut off services in your [...] time in the past [address] [facility], were you homeless or living in a prison (including now)? 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 Gender Identity Female 02/08/2023 8:04 AM CDT Sexual Orientation Straight 02/08/2023 8: 04 AM CDT Last Filed Vital Signs Vital Sign Reading Time Taken Comments Blood Pressure 104/61 01/27/2025 8:15 AM CDT Pulse 60 01/27/2025 8:15 AM CDT Temperature 35.6 C (96 F) 01/27/2025 8:15 AM CDT Respiratory Rate 16 2024 2:40 PM BENCH WORKER Oxygen Saturation 97% 07/23/2024 11: 33 PM BENCH WORKER Inhaled Oxygen Concentration - - Weight 142.8 [...] 3-dose SCD M series) 2007 COVID-19 Vaccine (3 - 2024-2 6 season) 2025 08/26/2021, 10/26/2020 Influenza Adult (#1) 2025 08/26/2021, 05/22/2017, 10/07/2016 PHQ-2 ([facility]) Completed 09/19/2024 Hepatitis A Vaccines Aged Out No long er eligible based on patient's age to complete this topic Meningococcal B Vaccine Aged Out No l [...] [place], RN Medical Devices Implanted Type Area Hvac Tech Device Identifier Shelf Expiration Date Model / Serial / Lot Ar[employer] Compression Cannulated Headless Screw 2.5 X 13 Mm Implanted:Qty: 1 on 07/17/2024 by Kyle Suarez MD at [facility] [employer] Screw Right: Wrist [employer] [id number] / / Insurance [employer] - [employer] Advance Directives * Full Code (Latest Code Status on File) Date Activated Date Inactivated Comments 02/03/2024 11:24 PM 02/05/2024 7:56 PM Care Teams Secondary Market Manager Relationship Specialty Start Date End Date Cuauhtemoc Zuluaga MD [address] [place] [address] PCP - General FAMILY PRACTICE 12/21/22
--- OUTSIDE RECORDS SUMMARY | 2025-06-13 01:06 | XMS_ITS | Encounter Summary ---
Author Organization [facility] Address [address] [place] [address] Care Team Providers Care Custom Tailor Name Role Phone Cuauhtemoc Zuluaga MD Primary Care Provider [phone] Encounter Details Date Type Department Care Team (Late st Contact Info) Description 08/29/2024 Algentist Message Enc [facility] Orthopedic & Sports Medicine - [place] [address] [place] [address] Kyle Suarez MD [address] [place] [address] Medical Request Social History Tobacco Use Types Packs/Day Years Used Date Smoking Tobacco: Former Cigarettes 0.5 10 Q uit: 2013 Passive Smoke Exposure: Never Smokeless Tobacco: Former Alcohol Use Standard Drinks/Week Comments Not Currently 0 (1 standard drink = 0.6 oz pur e alcohol) [facility] Utilities Answer Date Recorded In the past 12 months has e [employer], gas, oil, or water [employer] threatened to shut off services in your [...] any time in the past 12 m [facility], were you homeless or living in a assisted (including now)? 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 Sex Female 10:22 PM CREEL HAND Gender Identity Female 02/08/2023 8:04 AM CDT [...] on filedocumented in this encounter Care Teams Custom Tailor Relationship Specialty Start Date End Date Cuauhtemoc Zuluaga MD [address] [place] [address] PCP - General FAMILY PRACTICE 12/21/22 documented as of this encounter
--- OUTSIDE RECORDS SUMMARY | 2025-06-13 01:06 | XMS_ITS | Encounter Summary ---
Author Organization [facility] Address [address] [place] [address] Care Team Providers Care Computer System Specialist Name Role Phone Cuauhtemoc Zuluaga MD Primary Care Provider [phone] Encounter Details Date Type Department Care Team (Late st Contact Info) Description 08/01/2024 [employer] Message Enc [facility] Orthopedic & Sports Medicine - [place] [address] [place] [address] Kyle Suarez MD [address] [place] [address] Medication Refill Social History Tobacco Use Types Packs/Day Years Used Date Smoking Tobacco: Former Cigarettes 0.5 10 Q uit: 2013 Passive Smoke Exposure: Never Smokeless Tobacco: Former Alcohol Use Standard Drinks/Week Comments Not Currently 0 (1 standard drink = 0.6 oz pur e alcohol) [facility] Utilities Answer Date Recorded In the past 12 months has e [employer], gas, oil, or water [employer] threatened to shut off services in your [...] any time in the past 12 m [facility], were you homeless or living in a fpc (including now)? 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 Sex Female 10:22 PM SENIOR PATIENT ACCOUNT REPRESENTATIVE Gender Identity Female 02/08/2023 8:04 AM CDT [...] on filedocumented in this encounter Care Teams Computer System Specialist Relationship Specialty Start Date End Date Cuauhtemoc Zuluaga MD [address] [address] PCP - General FAMILY PRACTICE 12/21/22 documented as of this encounter
--- OUTSIDE RECORDS SUMMARY | 2025-06-13 01:06 | XMS_ITS | Encounter Summary ---
Author Organization [facility] Address [address] [place] [address] Care Team Providers Care Weapons System Instrument Mechanic Name Role Phone Cuauhtemoc Zuluaga MD Primary Care Provider [phone] Encounter Details Date Type Department Care Team (Late st Contact Info) Description 02/12/2025 Mobicowt Message Enc [facility] Orthopedic & Sports Medicine - [place] [address] [place] [address] Kyle Suarez MD [address] [place] [address] Referral Request Social History Tobacco Use Types Packs/Day Years Used Date Smoking Tobacco: Former Cigarettes 0.5 10 Q uit: 2013 Passive Smoke Exposure: Never Smokeless Tobacco: Former Alcohol Use Standard Drinks/Week Comments Not Currently 0 (1 standard drink = 0.6 oz pur e alcohol) [facility] Utilities Answer Date Recorded In the past 12 months has e [employer], gas, oil, or water [employer] threatened to shut off services in your [...] any time in the past 12 m [facility], were you homeless or living in a long-term (including now)? 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
--- OUTSIDE RECORDS SUMMARY | 2025-06-13 01:06 | XMS_ITS | Encounter Summary ---
Author Organization [facility] Address [address] [place] [address] Care Team Providers Care Robotic Welding Operator Name Role Phone Cuauhtemoc Zuluaga MD Primary Care Provider [phone] Encounter Details Date Type Department Care Team (Late st Contact Info) Description 08/08/2024 Saberr Message Enc [facility] Medical Group Orthopedic & Sports Medicine - [place] [address] [place] [address] Kyle Suarez MD [address] [place] [address] Cast Social History Tobacco Use Types Packs/Day Years Used Date Smoking Tobacco: Former Cigarettes 0.5 10 Q uit: 2013 Passive Smoke Exposure: Never Smokeless Tobacco: Former Alcohol Use Standard Drinks/Week Comments Not Currently 0 (1 standard drink = 0.6 oz pur e alcohol) [facility] Utilities Answer Date Recorded In the past 12 months has e [employer], gas, oil, or water [employer]) threatened to shut off services in your [...] any time in the past 12 m [facility], were you homeless or living in a snf (including now)? 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
--- OUTSIDE RECORDS SUMMARY | 2025-06-13 01:06 | XMS_ITS | Encounter Summary ---
Author Organization [facility] Address [address] [place] [address] Care Team Providers Care Possum Trapper Name Role Phone Cuauhtemoc Zuluaga MD Primary Care Provider [phone] Encounter Details Date Type Department Care Team (Late st Contact Info) Description 2024 [employer] Message Enc [facility] Medical Group Orthopedic & Sports Medicine - [place] [address] [place] [address] Kyle Suarez MD [address] [place] [address] Cast - Follow Up Social History Tobacco Use Types Packs/Day Years Used Date Smoking Tobacco: Former Cigarettes 0.5 10 Q uit: 2013 Passive Smoke Exposure: Never Smokeless Tobacco: Former Alcohol Use Standard Drinks/Week Comments Not Currently 0 (1 standard drink = 0.6 oz pur e alcohol) [facility] Utilities Answer Date Recorded In the past 12 months has e [employer], gas, oil, or water [employer] threatened to shut off services in your [...] any time in the past 12 m [facility], were you homeless or living in a senior care (including now)? 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
--- OUTSIDE RECORDS SUMMARY | 2025-06-13 01:06 | XMS_ITS | Encounter Summary ---
Author Organization [facility] Address [address] [place] [address] Care Team Providers Care Motion Study Engineer Name Role Phone Cuauhtemoc Zuluaga MD Primary Care Provider [phone] Encounter Details Date Type Department Care Team (Late st Contact Info) Description 11/05/2024 Scopelyt Message Enc [facility] Group Orthopedic & Sports Medicine - [place] [address] [place] [address] Kyle Suarez MD [address] [place] [address] Bone Stimulator Social History Tobacco Use Types Packs/Day Years Used Date Smoking Tobacco: Former Cigarettes 0.5 10 Q uit: 2013 Passive Smoke Exposure: Never Smokeless Tobacco: Former Alcohol Use Standard Drinks/Week Comments Not Currently 0 (1 standard drink = 0.6 oz pur e alcohol) [facility] Utilities Answer Date Recorded In the past 12 months has e [employer] gas, oil, or water [employer] threatened to shut off services in your [...] any time in the past 12 m [facility], were you homeless or living in a senior living (including now)? 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 Sex Female 10:22 PM BRAND STRATEGIST Gender Identity Female 02/08/2023 8:04 AM CDT [...] on filedocumented in this encounter Care Teams Motion Study Engineer Relationship Specialty Start Date End Date Cuauhtemoc Zuluaga MD [address] [place] [address] PCP - General FAMILY PRACTICE 12/21/22 documented as of this encounter
--- OUTSIDE RECORDS SUMMARY | 2025-06-13 01:06 | XMS_ITS | Encounter Summary ---
Author Organization [facility] Address [address] [place] [address] Care Team Providers Care Customer Service Clerk Name Role Phone Cuauhtemoc Zuluaga MD Primary Care Provider [phone] Encounter Details Date Type Department Care Team (Late st Contact Info) Description 07/23/2024 [employer] Message Enc [facility] Orthopedic & Sports Medicine - [place] [address] [place] [address] Kyle Suarez MD [address] [place] [address] Cast Social History Tobacco Use Types Packs/Day Years Used Date Smoking Tobacco: Former Cigarettes 0.5 10 Q uit: 2013 Passive Smoke Exposure: Never Smokeless Tobacco: Former Alcohol Use Standard Drinks/Week Comments Not Currently 0 (1 standard drink = 0.6 oz pur e alcohol) [facility] Utilities Answer Date Recorded In the past 12 months has e [employer], gas, oil, or water [employer] threatened to shut off services in your [...] any time in the past 12 m [facility], were you homeless or living in a [place] health care facility (including now)? 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 Sex Female 10:22 PM BUGGY DRIVER Gender Identity Female 02/08/2023 8:04 AM CDT [...] 11:36 PM Bernardino Mustafa RN Active * Turner Suicide Severity Rating Scale (Screener/Recent Self-Report) Question Answer Date of Assessment Author Status 1. Wish to be (Past 1 Month) No 07/23/2024 11:36 PM BUGGY DRIVER Shanta Eastman RN A ctive 2. Non-Specific Active Suicidal Thoughts (Past 1 Month) No 07/23/2024 11:36 PM BUGGY DRIVER Shanta Eastman RN A ctive 6. Suicidal [...] on filedocumented in this encounter Care Teams Customer Service Clerk Relationship Specialty Start Date End Date Cuauhtemoc Zuluaga MD [address] [place] [address] PCP - General FAMILY PRACTICE 12/21/22 documented as of this encounter
--- OUTSIDE RECORDS SUMMARY | 2025-06-13 01:06 | XMS_ITS | Encounter Summary ---
Author Organization [facility] Address [address] [place] [address] Care Team Providers Care Distributor Of Directories Name Role Phone Cuauhtemoc Zuluaga MD Primary Care Provider [phone] Encounter Details Date Type Department Care Team (Late st Contact Info) Description 03/31/2025 [employer] Message Enc [facility] Medical Group Orthopedic & Sports Medicine - [place] [address] [place] [address] Kyle Suarez MD [address] [place] [address] Referral Documents Needed Social History Tobacco Use Types Packs/Day Years Used Date Smoking Tobacco: Former Cigarettes 0.5 10 Q uit: 2013 Passive Smoke Exposure: Never Smokeless Tobacco: Former Alcohol Use Standard Drinks/Week Comments Not Currently 0 (1 standard drink = 0.6 oz pur e alcohol) [facility] Utilities Answer Date Recorded In the past 12 months has e [employer], gas, oil, or water [employer] threatened to shut off services in your [...] any time in the past 12 m [facility], were you homeless or living in a penitentiary (including now)? 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
--- OUTSIDE RECORDS SUMMARY | 2025-06-13 01:06 | XMS_ITS | Clinical Summary ---
Author Organization [facility] Address [address] [place] [address] Care Team Providers Care Maintenance Job Titles Name Role Phone Cuauhtemoc Zuluaga MD Primary Care Provider [phone] Osvaldo Hollingsworth MD Unavailable [phone] Allergies Active Allergy Reactions Criticality Noted Date Comments Codeine Headache,Other (See comments) Low 2015 Severe headache Medications citalopram (CeleXA) 40 mg tablet Take 1 tablet (40 mg total) by mouth daily 6 Active omeprazole (PriLOSEC) 40 mg capsule Take 1 capsule (40 mg total) by mouth daily 3 8 Active atorvastatin (LIPITOR) 10 mg tablet Take 1 tablet (10 mg total) by mouth daily 0 Active metoprolol XL (TOPROL-XL) 25 mg extended release tablet Take 1 tablet (25 mg total) by mouth daily Active pregabalin (LYRICA) 50 mg capsule Take 2 capsules (100 mg total) by mouth 2 (two) times a day Active albuterol HFA (ProAir HFA) 90 mcg/actuation inhaler Inhale 1-2 puffs every 4 (four) hours as needed for shortness of breath 6 Active aspirin 81 mg chewable tablet Take 1 tablet (81 mg total) by mouth daily Active fluticasone propionate (FLONASE) 50 mcg/actuation nasal spray Administer 1 spray into each nostril daily as needed for allergies Active HYDROcodone-ac etaminophen (NORCO) 5-325 mg per tabletIndicati ons:Pain Take 1 tablet by mouth every 4 (four) hours as needed for pain 12 tablet 4 Active triamcinolone (KENALOG) 0.1 % cream APPLY CREAM EXTERNALLY TWICE DAILY NEEDED FOR ECZEMA 5 Active Mounjaro 10 mg/0.5 mL pen injector injection INJECT 10 MG SUBCUTANEOUSLY ONCE EVERY 7 DAYS 5 Active metFORMIN (GLUCOPHAGE) 500 mg tablet Take 1 tablet (500 mg total) by mouth Active meloxicam (MOBIC) 15 mg tablet Take 1 tablet (15 mg total) by mouth daily 5 Active gabapentin (NEURONTIN) 300 mg capsule Take 1 capsule (300 mg total) by mouth 2 (two) times a day Active famotidine (PEPCID) 20 mg tablet Active celecoxib (CeleBREX) 200 mg capsule Take 1 capsule (200 mg total) by mouth daily 5 Active iron bisgly,ps-FA-B ,C 12-succ 65 mg-65 mg- 1,000 mcg (24) tablet Take by mouth Active magnesium chloride 71.5 mg tablet,delayed release (DR/EC) Take by mouth Active Active Problems Problem Noted Date Diagnosed Date Abdominal swelling 04/22/2025 Adenomatous colon polyp 04/22/2025 Anxiety about health 04/22/2025 Anxiety 04/22/2025 Arm paresthesia, right 04/22/2025 Arthritis of right knee 04/22/2025 Calculus of ureter 04/22/2025 Cervical radiculopathy 04/22/2025 Chest discomfort 04/22/2025 Chondromalacia, patella 04/22/2025 Chronic recurrent sinusitis 04/22/2025 Chronic sinusitis 04/22/2025 COVID 04/22/2025 Daily headache 04/22/2025 De Quervain's tenosynovitis, right 04/22/2025 Depression 04/22/2025 Dyspnea on exertion 04/22/2025 Elevated glucose 04/22/2025 Enlarged thoracic aorta 04/22/2025 Eustachian tube dysfunction 04/22/2025 Gastroparesis 04/22/2025 Heart murmur 04/22/2025 Hepatic steatosis 04/22/2025 History of partial hysterectomy 04/22/2025 Hx of cholecystectomy 04/22/2025 Hyperlipidemia 04/22/2025 Hypertrophy of both inferior nasal turbinates Irritable bowel syndrome wit h both constipation and diarrhea 04/22/2025 Joint pain 04/22/2025 Lateral meniscus tear 04/22/2025 LLQ pain 04/22/2025 Low back pain 04/22/2025 Memory loss 04/22/2025 Nasal congestion 04/22/2025 Nasal folliculitis 04/22/2025 Nausea 04/22/2025 Morbid obesity 04/22/2025 Otalgia of left ear 04/22/2025 Degeneration of intervertebral disc of lumbar re gion 04/22/2025 Other spondylosis with radiculopathy, lumbar reg ion 04/22/2025 Panniculitis 04/22/2025 PCOS (polycystic ovarian syndrome) 04/22/2025 Bronchitis 04/22/2025 Pharyngitis 04/22/2025 Tonsillitis 04/22/2025 Rash 04/22/2025 Right carpal tunnel syndrome 04/22/2025 Left leg pain 04/22/2025 Right knee pain 04/22/2025 Right leg pain 04/22/2025 Right leg paresthesias 04/22/2025 Right wrist pain 04/22/2025 MILY on CPAP 04/22/2025 Sore throat 04/22/2025 Closed nondisplaced fracture of lunate bone of r ight wrist 06/26/2024 Headache 02/03/2024 Sleep apnea in adult 08/28/2018 GERD (gastroesophageal reflux disease) 6 Encounters Date Type Department Care Team Description 04/22/2025 8:15 AM CDT - 04/22/2025 11:59 PM CDT Hospital Encounter [facility] [address] [place] [address] Amanuel Reyes MD Right wrist pain Discharge Disposition: Discharge to home or self care 04/22/2025 7:50 AM CDT Office Visit [facility] Medicine Orthopaedic Surgery [address] [facility] 6th [place] [address] [place] [address] Amanuel Reyes MD Right wrist pain (Primary Dx) from Last 3 Months Immunizations Immunization Administration Dates Next Due Influenza, Quadrivalent, Spl it, Preservative Free, Intramuscular 10/07/2016 Surgical History Surgery Date Site/Laterality Comments CHOLECYSTECTOMY HYSTERECTOMY LUMBAR PUNCTURE WO INJECTION, DIAGNOSTIC 01/29/2024 N/A Medical History Medical History Date Comments GERD (gastroesophageal reflux disease) Bulging lumbar disc Status post cholecystectomy Endometriosis History of hysterectomy Nephrolithiasis Family History Medical History Relation Name Comments Diabetes Father Heart disease Father Diabetes Mother Heart disease Mother Kidney disease Mother Transient ischemic attack Mother Relation Name Status Comments Father Mother Social History Tobacco Use Types Packs/Day Years Used Date Smoking Tobacco: Former Smokeless Tobacco: Former Alcohol Use Standard Drinks/Week Comments Yes 0 (1 standard drink = 0.6 oz pur e alcohol) socially Personal Safety Answer Date Recorded Have you ever been in or are you currently in a harmful physical or emotional relationship or is someone making you feel afraid or unsafe? Denies 02/01/2024 Comments No Sex and Gender Information Value Date Recorded Sex Assigned at Not on file Legal Sex Female 8:13 AM BALLAST REGULATOR OPERATOR Gender Identity Not on file Sexual Orientation Not on file Obstetrics History Last Filed Vital Signs Vital Sign Reading Time Taken Comments Blood Pressure 137/78 02/01/2024 6:00 PM CDT Pulse 58 02/01/2024 6:00 PM CDT Temperature 36.7 C (98.1 F) 02/01/2024 5:06 PM CDT Respiratory Rate 20 02/01/2024 6:00 PM CDT Oxygen Saturation 96% 02/01/2024 6:00 PM CDT Inhaled Oxygen Concentration - - Weight 155.7 kg (343 lb 4.1 oz) 02/01/2024 5:06 PM CDT Height 165.1 cm (5' 5) 02/01/2024 5:06 PM CDT Body Mass Index 57.12 02/01/2024 5:06 PM CDT Plan of Treatment Upcoming Encounters Date Type Department Care Team (Latest Contact Info) Description 07/02/2025 10:20 AM BALLAST REGULATOR OPERATOR Hospital Encounter [facility] [address] [place] [address] Amanuel Reyes MD [address] [facility] [address]6B[address] [place] [address] 07/02/2025 10:20 AM BALLAST REGULATOR OPERATOR - 07/02/2025 12:15 PM BALLAST REGULATOR OPERATOR Surgery [facility] [address] [place] [address] Amanuel Reyes MD [address] 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, subsequent encounter 07/02/2025 10:20 AM BALLAST REGULATOR OPERATOR Health Maintenance Due Date Last Done Comments Breast Cancer Screening-Mammogram 1980 Depression Screening 1980 Hepatitis C Screening 1980 Varicella Vaccines (1 of 2 - 13+ 2-dose series) 1993 Hepatitis B Screening 1998 Regular Well Visit/Exam 18-64 1998 HPV Vaccines (1 - 3-dose SCD M series) 2007 DTaP/Tdap/Td Vaccine (2 - Td or Tdap) 02/13/2018 02/14/2008, 08/21/1993 Covid-19 Vaccine (3 - 2024-2 6 season) 2025 08/26/2021, 10/26/2020 Influenza Vaccine (#1) 2025 2, 05/22/2017, 10/07/2016 Pneumococcal vaccine <65 Aged Out No longer eligible based on patient's age to complete this topic Goals Goal Patient Goal Type Associated Problems Recent Progress Patient-Stated? Author Autogenerat ed Goal Care Plan Autogenerated Problem No Thomas Reyes Procedures Procedure Name Priority Date/Time Associated Diagnosis Comments XR WRIST RIGHT 3 OR MORE VIEWS Schedule Routine, Read Routine (OP Routine) 04/22/2025 8:25 AM CDT Right wrist pain from Last 3 Months Results * X-ray wrist right 3+ views (04/22/2025 8:25 AM CDT) Anatomical Region Laterality Modality Upper Extremities, Wrist Right Compute d Radiography 04/22/2025 9:42 AM CDT Impressions 04/22/2025 5:40 PM CDT 1. Attempted internal fixation of a nonunited comminuted fracture of the right lunate. 2. Moderate osteoarthritis of the triscaphe joint. Dictated by: Raman Negrete M.D. The radiology attending physician has personally reviewed this study, and had reviewed and/or edited this written report and agrees with it. Electronically signed by: Curt Head MD Narrative 04/22/2025 5:40 PM CDT EXAMINATION: XR WRIST RIGHT 3 OR MORE VIEWS HISTORY: joint pain FINDINGS: 4 views of the right wrist are provided for interpretation. No available comparisons. Attempted internal fixation of a nonunited comminuted fracture of the right lunate with a headless screw. The instrumentation is intact. No osseous bridging across the fracture fragments, which is best evaluated on lateral view. Minimal metallic debris in the right wrist. Polyarticular osteoarthritis most pronounced and moderate at the triscaphe joint. No abnormal widening of the scapholunate or triquetral and reveals. Procedure Note Lisa Head MD - 04/22/2025 EXAMINATION: XR WRIST RIGHT 3 OR MORE VIEWS HISTORY: joint pain FINDINGS: 4 views of the right wrist are provided for interpretation. No available comparisons. Attempted internal fixation of a nonunited comminuted fracture of the right lunate with a headless screw. The instrumentation is intact. No osseous bridging across the fracture fragments, which is best evaluated on lateral view. Minimal metallic debris in the right wrist. Polyarticular osteoarthritis most pronounced and moderate at the triscaphe joint. No abnormal widening of the scapholunate or triquetral and reveals. IMPRESSION: 1. Attempted internal fixation of a nonunited comminuted fracture of the right lunate. 2. Moderate osteoarthritis of the triscaphe joint. Dictated by: Raman Negrete M.D. The radiology attending physician has personally reviewed this study, and had reviewed and/or edited this written report and agrees with it. Electronically signed by: Curt Head MD Amanuel Reyes MD IMG XR PROCEDURES Final Resul t from Last 3 Months Additional Health Concerns Active Problems Noted Date Diagnosed Date Autogenerated Problem 05/14/2025 Insurance [employer] ACCESS [employer] OPEN ACCESS [employer] OPEN ACCESS Care Teams Maintenance Job Titles Relationship Specialty Start Date End Date Cuauhtemoc Zuluaga MD PCP - General 10/06/16 Osvaldo Hollingsworth MD [address] [place] [address] Referring Physician Neurology 11/30/23
--- OUTSIDE RECORDS SUMMARY | 2025-06-13 01:06 | XMS_ITS | Clinical Summary ---
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 Not on file Not on file Last Filed Vital Signs Vital Sign Reading Time Taken Comments Blood Pressure 124/80 07/21/2016 2:40 PM CONCRETE JOURNEYMAN Pulse 92 07/21/2016 2:40 PM CONCRETE JOURNEYMAN Temperature 37.2 C (99 F) 07/21/2016 2:40 PM CONCRETE JOURNEYMAN Respiratory Rate 16 07/21/2016 2:40 PM CONCRETE JOURNEYMAN Oxygen Saturation 93% 07/21/2016 2:40 PM CONCRETE JOURNEYMAN Inhaled Oxygen Concentration - - Weight 129.3 kg (285 lb) 07/21/2016 2:40 PM CONCRETE JOURNEYMAN Height 165.1 cm (5' 5) 07/21/2016 2:40 PM CONCRETE JOURNEYMAN Body Mass Index 47.43 07/21/2016 2:40 PM CONCRETE JOURNEYMAN Plan of Treatment Health Maintenance Due Date Last Done Comments Hepatitis C Virus (HCV) Screening 1980 TdaP Immunization 1980 Hepatitis B Immunization (1 of 3 - 19+ 3-dose series) 1999 Human Papillomavirus (HPV) Immunization (1 - 3-dose SCDM series) 2007 Influenza Immunization (#1) 2025 SARS-COV-2 Immunization (1 - season) 2025 Respiratory Syncytial Virus (RSV) Immunization (Adult) (1 - 1-dose 75+ series) 2055 Meningococcal Immunization (ACWY) Aged Out No longer eligible based on patient's age to complete this topic Pneumococcal Immunization Combined Aged Out No longer eligible based on patient's age to complete this topic Rotavirus Immunization Aged Out No lo nger eligible based on patient's age to complete this topic Care Teams Shoe Laster Relationship Specialty Start Date End Date Cuauhtemoc Zuluaga MD [address] [place] [place] [address] PCP - General Family Medicine 02/12/16 Vee Dahl APRN, BULLARD MACHINE OPERATOR [address] [place] [address] Nurse Practitioner Advanced Practice Nurse 03/09/16
--- OUTSIDE RECORDS SUMMARY | 2025-06-13 01:06 | XMS_ITS | Encounter Summary ---
Author Organization [facility] Address [address] [place] [id number] Care Team Providers Care Coating Machine Operator Helper Name Role Phone Cuauhtemoc Zuluaga MD Primary Care Provider [phone] Encounter Details Date Type Department Care Team (Late st Contact Info) Description 07/25/2024 [employer] Message Enc [facility] Orthopedic [facility] - [place] [address] [place] [address] Kyle Suarez MD [address] [place] [address] Follow-Up Appts Social History Tobacco Use Types Packs/Day Years Used Date Smoking Tobacco: Former Cigarettes 0.5 10 Q uit: 2013 Passive Smoke Exposure: Never Smokeless Tobacco: Former Alcohol Use Standard Drinks/Week Comments Not Currently 0 (1 standard drink = 0.6 oz pur e alcohol) [facility] Utilities Answer Date Recorded In the past 12 months has e [employer] gas, oil, or water [employer] threatened to shut off services in your [...] were you homeless or living in a alf (including now)? 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 Sex Female 10:22 PM GRASSLAND CONSERVATIONIST Gender Identity Female 02/08/2023 8:04 AM CDT [...] on filedocumented in this encounter Care Teams Coating Machine Operator Helper Relationship Specialty Start Date End Date Cuauhtemoc Zuluaga MD [address] [place] [address] PCP - General FAMILY PRACTICE 12/21/22 documented as of this encounter
[2025-06-13 09:15] VITALS: BP 118/73; PULSE 76; RESP 18; TEMP 36.2; O2SAT 95
[2025-06-13] MEDS: LACTATED RINGERS 1,000 ML 150 ML IV CONT (09:32)
--- NOTE | 2025-06-13 09:47 | WPDANESEPPF ---
Anes - Initial Pre Proc Eval Procedure: Operation Date: 06/13/25 14:45 Proposed Procedures p Diagnostic Colonoscopy - Osvaldo Olivas MD Date/Time: 06/13/25 09:47 Surgeon: Osvaldo Olivas MD Pre Op Diagnosis: Recta/anal hemorrhage Patient Data Age: 44 Gender: F Height: 1.65 m Weight: 121.3 kg Last Vital Signs Temp 97.2 F L 06/13/25 09:15 Pulse 76 06/13/25 09:15 Resp 18 06/13/25 09:15 BP 118/73 06/13/25 09:15 Pulse Ox 95 06/13/25 09:15 O2 Del Method Room Air 06/13/25 09:15 Allergies Allergy/AdvReac Type Severity Reaction Status Date / Time codeine Allergy Mild Headache Verified 06/13/25 09:10 cefuroxime AdvReac Mild Redness of Verified 06/13/25 09:10 Skin Home Medications ?Medication ?Instructions ?Recorded ?Confirmed ?Type citalopram 40 mg tablet (Celexa) 40 mg PO DAILY 09/18/19 06/13/25 History ondansetron 4 mg disintegrating 4 mg PO Q8H PRN nausea and 09/18/22 06/05/25 Rx tablet vomiting #14 tabs tamsulosin 0.4 mg capsule (Flomax) 0.4 mg PO DAILY 12/13/22 06/13/25 History albuterol sulfate 90 mcg/actuation 1 inh inhalation Q4H PRN shortness 02/23/23 06/05/25 Rx aerosol inhaler (ProAir HFA) of breath or wheezing #8.5 grams metoprolol succinate 25 mg 25 mg PO DAILY #90 tabs 10/04/24 06/13/25 Rx tablet,extended release 24 hr atorvastatin 10 mg tablet 10 mg PO DAILY #90 tabs 10/06/24 06/13/25 Rx metformin 500 mg tablet 500 mg PO BID #180 tabs 11/05/24 06/13/25 Rx triamcinolone acetonide 0.1 % 1 applic topical BID PRN eczema 11/15/24 06/05/25 Rx topical cream #453.6 grams omeprazole 40 mg capsule,delayed 40 mg PO DAILY #30 caps 04/11/25 06/13/25 Rx release ascorbate calcium (vitamin C) 500 500 mg PO DAILY 05/09/25 06/13/25 History mg tablet ferrous sulfate 325 mg (65 mg 325 mg PO DAILY 05/09/25 06/13/25 History iron) tablet (Feosol) magnesium chloride 71.5 mg 2.4 mg PO DAILY 05/09/25 06/13/25 History (magnesium chloride) tablet,delayed release (Slow-Mag) vitamin B complex 1 tablet PO DAILY 05/09/25 06/13/25 History ciclopirox 8 % topical solution 1 applic topical ONCE 3 months 05/14/25 06/05/25 Rx #6.6 mL tirzepatide 10 mg/0.5 mL 10 mg (0.5 mL) subcut WEEKLY #6 mL 05/15/25 06/13/25 Rx subcutaneous pen injector (Macey) sodium,potassium,mag sulfates 17.5 See Rx Instructions PO .COMPLEX 05/19/25 06/05/25 Rx gram-3.13 gram-1.6 gram oral soln #354 mL (Suprep Bowel Prep Kit) celecoxib 200 mg capsule (Celebrex) 200 mg PO DAILY #90 caps 05/22/25 06/13/25 Rx Laboratory Tests 06/13/25 09:34 POC Capillary Glucose 90 mg/dl (65-105) Patient hx anesthesia problems: none Family hx anesthesia problems: none Results Review: All pre-operative results and documents have been reviewed as part of the pre-operative evaluation. [facility] Past Medical History Medical History Bug bite with infection Persistent headaches Nasal folliculitis Chest discomfort Adnexal mass BMI 50.0-59.9, adult Pharyngitis Adenomatous colon polyp Abdominal swelling Dyspnea on exertion Arthritis Anxiety Kidney stones Atrial fib/flutter, transient COPD (chronic obstructive pulmonary disease) SOB (shortness of breath) on exertion Ear pain Vertigo Claustrophobia MILY (obstructive sleep apnea) History of anesthesia problem Right knee pain Chondromalacia, patella Lateral meniscus tear BMI 45.0-49.9, adult Morbid obesity Gastroparesis LLQ pain Morbid obesity with BMI of 50.0-59.9, adult Nausea Chronic GERD Enlarged thoracic aorta MILY on CPAP Hepatic steatosis PCOS (polycystic ovarian syndrome) Surgical History Surgical History S/P panniculectomy History of section 2006, 2007, 2013 Hx of sinus surgery Hx of cholecystectomy History of partial hysterectomy H/O lithotripsy Family History Family History Father Hypertension Family history of chronic obstructive pulmonary disease Family history of diabetes mellitus in first degree relative Acute myocardial infarction Cerebrovascular accident Family history of coronary artery disease Diabetes mellitus Tobacco abuse Mother Hypertension Family history of diabetes mellitus in first degree relative Diabetes mellitus Stage 4 chronic kidney disease Grandparent Cerebrovascular accident Sibling No problems noted. Other Arthritis Depression Family history of malignant neoplasm Family history of malignant neoplasm of urinary bladder HLD (hyperlipidemia) Heart disease Kidney disorder Social History Social History Smoking packs per day: 0.5 Smoking cigarettes per day: 10.0 Years smoked: 10 Smoking pack-years: 5.00 Smoking status: Former smoker Second hand tobacco smoke exposure: Yes Smoking end date: 08/21/12 Alcohol intake: never Substance use: never Substance use type: does not use Do You Feel Safe in your Home?: Yes Lack of Transportation: No Lack of Food: Never True Current Housing: I Have Housing Concerned About Future Housing: No Difficulty Paying Gas/Electric Bills: No Difficulty Paying for Meds: No Currently Unemployed: No Education: High School Diploma/GED Difficulty w/ Childcare or Family Care: No Living arrangements: with family Occupation/Education: occupation 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 Gender identity (if verbalized by the patient): Female Spiritual care concerns: No Anes - Eval Final PreProcedure Day of Procedure 06/13/25 09:47 Patient weight: morbidly obese Lungs: normal air movement Airway: Mallampati scale class II Neurological: alert and oriented Last oral intake: >/= 8 hours ASA classification: III Emergent: no Anesthetic plan: proceed Anesthesia type and monitoring: general GIVS and standard monitoring Results Review: All pre-operative results and documents have been reviewed as part of the pre-operative evaluation. HTN, DM, MILY on CPAP, PCOS meds for that, borderline DM. Pt walks 1 mile, no cp or sob. Informed Consent: The patient's anesthetic plan and its attendant risks and benefits were discussed with the patient/family/POA. Questions were solicited and answers provided to the satisfaction of the patient/family/POA.
--- NOTE | 2025-06-13 10:08 | PM.HPGS ---
History of Present Illness History of Present Illness Consent: Risks, benefits, and alternatives have been discussed and questions answered. Patient agrees to proceed with procedure. Chief complaint: Recta/anal hemorrhage Narrative: Josefa Costello is a 44 year old female with recent blood in stool, had colon polyp in 2019 Review of Systems Review of Systems: All systems reviewed & are unremarkable except as noted in HPI and below PMFSH Past Medical History Medical History (Updated 06/13/25 @ 10:17 by Osvaldo Olivas MD) Adenomatous colon polyp Hematochezia Bug bite with infection Persistent headaches Nasal folliculitis Chest discomfort Adnexal mass BMI 50.0-59.9, adult Pharyngitis Abdominal swelling Dyspnea on exertion Arthritis Anxiety Kidney stones Atrial fib/flutter, transient COPD (chronic obstructive pulmonary disease) SOB (shortness of breath) on exertion Ear pain Vertigo Claustrophobia MILY (obstructive sleep apnea) History of anesthesia problem Right knee pain Chondromalacia, patella Lateral meniscus tear BMI 45.0-49.9, adult Morbid obesity Gastroparesis LLQ pain Morbid obesity with BMI of 50.0-59.9, adult Nausea Chronic GERD Enlarged thoracic aorta MILY on CPAP Hepatic steatosis PCOS (polycystic ovarian syndrome) Surgical History Surgical History S/P panniculectomy History of section 2006, 2007, 2013 Hx of sinus surgery Hx of cholecystectomy History of partial hysterectomy H/O lithotripsy Family History Family History Father Hypertension Family history of chronic obstructive pulmonary disease Family history of diabetes mellitus in first degree relative Acute myocardial infarction Cerebrovascular accident Family history of coronary artery disease Diabetes mellitus Tobacco abuse Mother Hypertension Family history of diabetes mellitus in first degree relative Diabetes mellitus Stage 4 chronic kidney disease Grandparent Cerebrovascular accident Sibling No problems noted. Other Arthritis Depression Family history of malignant neoplasm Family history of malignant neoplasm of urinary bladder HLD (hyperlipidemia) Heart disease Kidney disorder Social History Social History Smoking packs per day: 0.5 Smoking cigarettes per day: 10.0 Years smoked: 10 Smoking pack-years: 5.00 Smoking status: Former smoker Second hand tobacco smoke exposure: Yes Smoking end date: 08/21/12 Alcohol intake: never Substance use: never Substance use type: does not use Do You Feel Safe in your Home?: Yes Lack of Transportation: No Lack of Food: Never True Current Housing: I Have Housing Concerned About Future Housing: No Difficulty Paying Gas/Electric Bills: No Difficulty Paying for Meds: No Currently Unemployed: No Education: High School Diploma/GED Difficulty w/ Childcare or Family Care: No Living arrangements: with family Occupation/Education: occupation 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 Gender identity (if verbalized by the patient): Female Spiritual care concerns: No Meds Home Medications and Allergies Home Medications ?Medication ?Instructions ?Recorded ?Confirmed ?Type citalopram 40 mg tablet (Celexa) 40 mg PO DAILY 09/18/19 06/13/25 History ondansetron 4 mg disintegrating 4 mg PO Q8H PRN nausea and 09/18/22 06/05/25 Rx tablet vomiting #14 tabs tamsulosin 0.4 mg capsule (Flomax) 0.4 mg PO DAILY 12/13/22 06/13/25 History albuterol sulfate 90 mcg/actuation 1 inh inhalation Q4H PRN shortness 02/23/23 06/05/25 Rx aerosol inhaler (ProAir HFA) of breath or wheezing #8.5 grams metoprolol succinate 25 mg 25 mg PO DAILY #90 tabs 10/04/24 06/13/25 Rx tablet,extended release 24 hr atorvastatin 10 mg tablet 10 mg PO DAILY #90 tabs 10/06/24 06/13/25 Rx metformin 500 mg tablet 500 mg PO BID #180 tabs 11/05/24 06/13/25 Rx triamcinolone acetonide 0.1 % 1 applic topical BID PRN eczema 11/15/24 06/05/25 Rx topical cream #453.6 grams omeprazole 40 mg capsule,delayed 40 mg PO DAILY #30 caps 04/11/25 06/13/25 Rx release ascorbate calcium (vitamin C) 500 500 mg PO DAILY 05/09/25 06/13/25 History mg tablet ferrous sulfate 325 mg (65 mg 325 mg PO DAILY 05/09/25 06/13/25 History iron) tablet (Feosol) magnesium chloride 71.5 mg 2.4 mg PO DAILY 05/09/25 06/13/25 History (magnesium chloride) tablet,delayed release (Slow-Mag) vitamin B complex 1 tablet PO DAILY 05/09/25 06/13/25 History ciclopirox 8 % topical solution 1 applic topical ONCE 3 months 05/14/25 06/05/25 Rx #6.6 mL tirzepatide 10 mg/0.5 mL 10 mg (0.5 mL) subcut WEEKLY #6 mL 05/15/25 06/13/25 Rx subcutaneous pen injector (Macey) sodium,potassium,mag sulfates 17.5 See Rx Instructions PO .COMPLEX 05/19/25 06/05/25 Rx gram-3.13 gram-1.6 gram oral soln #354 mL (Suprep Bowel Prep Kit) celecoxib 200 mg capsule (Celebrex) 200 mg PO DAILY #90 caps 05/22/25 06/13/25 Rx Allergies Allergy/AdvReac Type Severity Reaction Status Date / Time codeine Allergy Mild Headache Verified 06/13/25 09:10 cefuroxime AdvReac Mild Redness of Verified 06/13/25 09:10 Skin Vital Signs Vital Signs - 24 hr 06/13/25 09:15 Temperature 97.2 F L Pulse Rate 76 Respiratory Rate 18 Blood Pressure 118/73 Pulse Oximetry 95 Oxygen Delivery Room Air Exam Const: General: comfortable and no acute distress HENMT: Face/Nose/Sinus: Normal nares present Eyes: General: appearance normal, both eyes and all related structures Neck: Neck: no JVD Resp: Auscultation: clear to auscultation bilaterally Cardio: Rate: regular rate Rhythm: regular rhythm GI: Inspection: non-distended GI Palp: Yes Soft to palpation Skin: General skin exam: normal color Neuro: General: gait normal Speech: normal speech Extrem: General: normal to inspection Psych: Mental Status: mental status grossly normal Assessment and Plan Assessment and plan (1) Hematochezia: Code(s): K92.1 - Melena Status: Acute Assessment and Plan: colonoscopy (2) Adenomatous colon polyp: Code(s): D12.6 - Benign neoplasm of colon, unspecified Status: Acute
[2025-06-13 10:23] VITALS: BP 109/62; PULSE 64; RESP 20; O2SAT 95
[2025-06-13 10:33] VITALS: BP 118/69; PULSE 63; RESP 21; O2SAT 97
[2025-06-13 10:43] VITALS: BP 124/83; PULSE 66; RESP 24; O2SAT 97
== END 2025-06-13 10:54 | disposition home or self-care (01) ==
PROVIDERS: PCP Family Medicine; Visit Provider Internal Medicine Gastroenterology
PROC: 0DJD8ZZ Inspection of Lower Intestinal Tract, Via Natural or Artificial Opening Endoscopic (ICD-10-PCS; CPT 45378; principal; 2025-06-13 14:45)
DX: K64.8 Other hemorrhoids (principal); K57.30 Diverticulosis of large intestine without perforation or abscess without bleeding; I10 Essential (primary) hypertension; E11.9 Type 2 diabetes mellitus without complications; J44.9 Chronic obstructive pulmonary disease, unspecified; K21.9 Gastro-esophageal reflux disease without esophagitis; E28.2 Polycystic ovarian syndrome; F40.240 Claustrophobia; G47.33 Obstructive sleep apnea (adult) (pediatric); F41.9 Anxiety disorder, unspecified; I48.91 Unspecified atrial fibrillation; I48.92 Unspecified atrial flutter; E66.01 Morbid (severe) obesity due to excess calories; Z68.41 Body mass index [BMI] 40.0-44.9, adult; Z79.51 Long term (current) use of inhaled steroids; Z79.84 Long term (current) use of oral hypoglycemic drugs; Z79.85 Long-term (current) use of injectable non-insulin antidiabetic drugs; Z79.1 Long term (current) use of non-steroidal anti-inflammatories (NSAID); Z99.89 Dependence on other enabling machines and devices; Z98.890 Other specified postprocedural states; Z90.49 Acquired absence of other specified parts of digestive tract; Z86.0100 Personal history of colon polyps, unspecified; Z87.891 Personal history of nicotine dependence; Z87.442 Personal history of urinary calculi; Z87.19 Personal history of other diseases of the digestive system; Z80.52 Family history of malignant neoplasm of bladder; Z82.49 Family history of ischemic heart disease and other diseases of the circulatory system
CPT/HCPCS: 45378; 82948; J2003; J2704; J7120